=== PATIENT | male | born 1960 | race Caucasian/White ===

== ENCOUNTER 2016-11-30 18:53 | Emergency (ER) | payer MEDICARE ==
[~2016-11-30 18:53] MED LIST: /CIPR75TA; ATEN25TA PO; CIPR500T4; CLAR10CA3 PO; CYCL10TA3 PO; DIPH2.5L; FLAG500T; FLEXERIL; LIPI80TA PO; MOBI7.5S PO; MOBI7.5T10 PO; OTC SLEEP AID PO; PERCOCET; ROBA750T4 PO; TOPA100T PO; TRAZ150T PO; ULTR50TA PO; ZOFRAN
--- NOTE | 2016-11-30 21:15 | EDDOCDS ---
Nurse's Notes [facility] Name: Pavel Raza Age: 56 yrs Sex: Male : 1960 Arrival Date: 11/30/2016 Time: 18:53 Bed PR Private MD: Diagnosis: Unspecified injury of head;Unspecified injury of face and head Presentation: 11/30 18:57 Presenting complaint: Patient states: fell and injured Left temporal area. on blood rs3 thinner plavix. denies loss of consciousness. Adult Sepsis Screening: The patient does not have new or worsening altered mentation. Patient's respiratory rate is less than 22. Systolic blood pressure is greater than 100. Patient has a qSOFA score of 0- Negative Sepsis Screen. Suicide/Homicide risk assessment- the patient denies having any suicidal and/or homicidal ideations and does not present with any other emotional, behavioral or mental health complaints. Status: Patient is not a human services case manager or dependent. Transition of care: patient was not received from another setting of care. 18:57 Method Of Arrival: Walkin/Carried/Asstd rs3 18:57 Acuity: DENISSE Level 3 rs3 Triage Assessment: 19:00 General: Appears in no apparent distress. Pain: Location: left mandaen. Pt Declines HIV rs3 testing. Musculoskeletal: Reports Pain is 8 out of 10 on a pain scale. Historical: - Allergies: PENICILLINS (Rash); Abilify (anxious); - Home Meds: 1. atenolol 25 mg Oral tab 1 tab once daily 2. atorvastatin 80 mg oral tab 1 tab once daily 3. Topamax 100 mg Oral tab 1 tab daily 4. Vitamin D Oral 50,000 unit weekly 5. lisinopril 5 mg Oral tab 1 tab once daily 6. clopidogrel 75 mg oral tab 1 tab once daily - PMHx: Chronic Back pain; Hypercholesterolemia; Hypertension; Migraines; - PSHx: Left removal patella; skin melanoma removed; Shoulder Arthroplasty. Right; Arthroscopy, Knee- Right; Arthroscopy, Knee- Left; stent placement; - Social history: Smoking status: Patient states former smoker of tobacco. No barriers to communication noted, The patient speaks fluent Pashto. - Family history: Not pertinent. - : The pt / caregiver states he / she is on anticoagulants: Plavix. Home medication list is obtained from the patient. - Exposure Risk Screening:: None identified. Screenin:11 Screening information is obtained from the patient. Fall risk: No risks identified. jo3 Assistance ADL's: requires no assistance with activities of daily living. Abuse/DV Screen: The patient / caregiver reports he/she is: not in a situation that causes fear, pain or injury. Nutritional screening: No deficits noted. Advance Directives: There is no active DNR order. home support is adequate. Assessment: 21:11 General: Appears in no apparent distress, comfortable, Behavior is appropriate for age, jo3 cooperative, pleasant. Neurological: No deficits noted. Level of Consciousness is awake, alert, Oriented to person, place, time. Respiratory: Airway is patent Respiratory effort is even, unlabored. Derm: Skin is pink, warm & dry. small hematoma to left temporal area. Vital Signs: 18:56 BP 171 / 97; Pulse 61; Resp 16; Temp 96.2(O); Pulse Ox 100% on R/A; Weight 90.72 kg lr2 (R); Height 6 ft. 1 in. (185.42 cm); Pain 4/10; 21:11 BP 156 / 88; Pulse 62; Resp 16; Temp 98.2(T); Pulse Ox 96% on R/A; jo3 18:56 Body Mass Index 26.39 (90.72 kg, 185.42 cm) lr2 Vitals: 18:56 Log In Time: November 30, 2016 at 18:53. lr2 ED Course: 18:54 Patient visited by Yolette Real. lr2 18:54 Patient moved to Waiting lr2 18:56 Patient moved to Pre RCE lr2 18:57 Patient moved to Waiting rs3 18:59 Triage Initiated rs3 19:04 Patient moved to Pre RCE rs3 19:20 Patient moved to Triage 3 ck1 19:33 Patient visited by Opal Rhodes,TAINA. ck1 19:42 [facility] Pathak FNP [facility] ke 19:42 Patient visited by Connor Pathak FNP. ke 19:42 Patient visited by Connor Pathak FNP. ke 19:53 Patient moved to TR2 ck1 20:21 Patient visited by Opal Rhodes,TAINA. ck1 21:02 Patient visited by Connor Pathak FNP. ke 21:05 Patient moved to jo3 21:11 The patient / caregiver is instructed regarding the plan of care and ED course. jo3 21:11 No IV's were initiated during this patient's visit. No procedures done that require jo3 assistance. 21:12 [facility] Payment Agreement was scanned into [employer] and attached to record. ks16 Order Results: There are currently no results for this order. Outcome: 21:04 Discharge ordered by Provider. ke 21:11 Discharge Assessment: Patient awake, alert and oriented x 3. No cognitive and/or jo3 functional deficits noted. Patient verbalized understanding of disposition instructions. patient administered narcotics - no. The following High Risk Discharge criteria are identified: None. Discharged to home ambulatory. Condition: stable. Discharge instructions given to patient, Instructed on discharge instructions, follow up and referral plans. Demonstrated understanding of instructions, medications, Pt was receptive of discharge instructions/ teaching. CT Study completed. Property sent home with patient. 21:14 Patient left the ED. jo3 Signatures: Connor Pathak FNP FNP ke Kim-Ashcraft, ConnieRN RN ck1 Jaja Butler RN RN ziggy3 Gayle Diego RN RN rs3 Marita Mcclain, Reg Reg ks16 Yolette Real lr2 Corrections: (The following items were deleted from the chart) 19:04 18:57 Presenting complaint: Patient states: fell and injured Left temporal area. on rs3 blood thinner. denies loss of consciousness. rs3 19:04 19:00 The pt / caregiver states he / she is on anticoagulants: rs3 rs3 MTDD
--- NOTE | 2016-11-30 21:15 | EDDOCDS ---
Physician Documentation [facility] Name: Pavel Raza Age: 56 yrs Sex: Male : 1960 Arrival Date: 11/30/2016 Time: 18:53 Bed PR Private MD: Disposition: 11/30/16 21:04 Discharged to Home/Self Care. Impression: Unspecified injury of head, Unspecified injury of face and head. - Condition is Stable. - Discharge Instructions: Head Injury, Adult. - Medication Reconciliation, Local Pharmacy Hours form. - Follow up: Private Physician; When: 2 - 3 days; Reason: Recheck today's complaints, Continuance of care. - Problem is new. - Symptoms are unchanged. - Notes: ice 20 min an hour Historical: - Allergies: PENICILLINS (Rash); Abilify (anxious); - Home Meds: 1. atenolol 25 mg Oral tab 1 tab once daily 2. atorvastatin 80 mg oral tab 1 tab once daily 3. Topamax 100 mg Oral tab 1 tab daily 4. Vitamin D Oral 50,000 unit weekly 5. lisinopril 5 mg Oral tab 1 tab once daily 6. clopidogrel 75 mg oral tab 1 tab once daily - PMHx: Chronic Back pain; Hypercholesterolemia; Hypertension; Migraines; - PSHx: Left removal patella; skin melanoma removed; Shoulder Arthroplasty. Right; Arthroscopy, Knee- Right; Arthroscopy, Knee- Left; stent placement; - Social history: Smoking status: Patient states former smoker of tobacco. No barriers to communication noted, The patient speaks fluent Cypriot. - Family history: Not pertinent. - : The pt / caregiver states he / she is on anticoagulants: Plavix. Home medication list is obtained from the patient. - Exposure Risk Screening:: None identified. Vital Signs: 11/30 18:56 BP 171 / 97; Pulse 61; Resp 16; Temp 96.2(O); Pulse Ox 100% on R/A; Weight 90.72 kg / lr2 200 lbs (R); Height 6 ft. 1 in. (185.42 cm); Pain 4/10; 21:11 BP 156 / 88; Pulse 62; Resp 16; Temp 98.2(T); Pulse Ox 96% on R/A; jo3 18:56 Body Mass Index 26.39 (90.72 kg, 185.42 cm) lr2 MDM: 19:49 CT Head Without Contrast: on eloquis Ordered. EDMS 21:12 [facility] Payment Agreement was scanned into [employer] and attached to record. ks16 21:12 Financial registration complete. ks16 Signatures: Dispatcher [employer] EDMS Connor Pathak FNP TELECOMMUNICATIONS FIELD TECHNICIANJaja MelgarRN RN jo3 Gayle DiegoRN RN rs3 Marita Mcclain, Reg Reg ks16 The chart was reviewed and I authenticate all verbal orders and agree with the evaluation and treatment provided.Corrections: (The following items were deleted from the chart) 19:04 19:00 The pt / caregiver states he / she is on anticoagulants: rs3 rs3 Attachments: 21:12 [facility] Payment Agreement ks16 MTDD
--- NOTE | 2016-12-01 08:34 | REP ---
Clinical: Trauma . Comparison: 06/26/2015 . Findings: The ventricles, sulci, and cisterns are normal in position and appearance. Cuellar-white differentiation is maintained. No acute intracranial hemorrhage, mass/mass effect, pathology or trauma/injury. No evidence for acute infarction. No extra-axial fluid collection. Calvarium is intact. Paranasal sinuses and mastoid air cells are clear. Impression: Normal noncontrast head CT. No evidence for acute intracranial pathology or trauma/injury. Signed by Ayad Chung MD 12/01/2016 08:26 A
--- NOTE | 2016-12-02 22:15 | EDDOCDS ---
Physician Documentation [facility] Name: Pavel Raza Age: 56 yrs Sex: Male : 1960 Arrival Date: 11/30/2016 Time: 18:53 Bed PR Private MD: Disposition: 11/30/16 21:04 Discharged to Home/Self Care. Impression: Unspecified injury of head, Unspecified injury of face and head. - Condition is Stable. - Discharge Instructions: Head Injury, Adult. - Medication Reconciliation, Local Pharmacy Hours form. - Follow up: Private Physician; When: 2 - 3 days; Reason: Recheck today's complaints, Continuance of care. - Problem is new. - Symptoms are unchanged. - Notes: ice 20 min an hour Historical: - Allergies: PENICILLINS (Rash); Abilify (anxious); - Home Meds: 1. atenolol 25 mg Oral tab 1 tab once daily 2. atorvastatin 80 mg oral tab 1 tab once daily 3. Topamax 100 mg Oral tab 1 tab daily 4. Vitamin D Oral 50,000 unit weekly 5. lisinopril 5 mg Oral tab 1 tab once daily 6. clopidogrel 75 mg oral tab 1 tab once daily - PMHx: Chronic Back pain; Hypercholesterolemia; Hypertension; Migraines; - PSHx: Left removal patella; skin melanoma removed; Shoulder Arthroplasty. Right; Arthroscopy, Knee- Right; Arthroscopy, Knee- Left; stent placement; - Social history: Smoking status: Patient states former smoker of tobacco. No barriers to communication noted, The patient speaks fluent Singaporean. - Family history: Not pertinent. - : The pt / caregiver states he / she is on anticoagulants: Plavix. Home medication list is obtained from the patient. - Exposure Risk Screening:: None identified. Vital Signs: 11/30 18:56 BP 171 / 97; Pulse 61; Resp 16; Temp 96.2(O); Pulse Ox 100% on R/A; Weight 90.72 kg / lr2 200 lbs (R); Height 6 ft. 1 in. (185.42 cm); Pain 4/10; 21:11 BP 156 / 88; Pulse 62; Resp 16; Temp 98.2(T); Pulse Ox 96% on R/A; jo3 18:56 Body Mass Index 26.39 (90.72 kg, 185.42 cm) lr2 MDM: 19:49 CT Head Without Contrast: on eloquis Ordered. EDIN 21:12 [facility] Payment Agreement was scanned into [employer] and attached to record. ks 21:12 Financial registration complete. [facility] 12/01 10:48 T-Sheet-- Draft Copy was scanned into [employer] and attached to record. gb Signatures: Dispatcher [employer] EDMS Thalia Montaño, Reg Reg gb Connor Pathak, AIMEE SPANGLERP Jaja Cisse,RN RN jo3 Gayle DiegoRN RN rs3 Marita Mcclain, Reg Reg ks16 The chart was reviewed and I authenticate all verbal orders and agree with the evaluation and treatment provided.Corrections: (The following items were deleted from the chart) 11/30 19:04 19:00 The pt / caregiver states he / she is on anticoagulants: rs3 rs3 Attachments: 21:12 [facility] Payment Agreement [facility] 12/01 10:48 T-Sheet-- Draft Copy gb Chart Complete MTDD
--- NOTE | 2016-12-02 22:15 | EDDOCDS ---
Physician Documentation [facility] Name: Pavel Raza Age: 56 yrs Sex: Male : 1960 Arrival Date: 11/30/2016 Time: 18:53 Bed PR Private MD: Disposition: 11/30/16 21:04 Discharged to Home/Self Care. Impression: Unspecified injury of head, Unspecified injury of face and head. - Condition is Stable. - Discharge Instructions: Head Injury, Adult. - Medication Reconciliation, Local Pharmacy Hours form. - Follow up: Private Physician; When: 2 - 3 days; Reason: Recheck today's complaints, Continuance of care. - Problem is new. - Symptoms are unchanged. - Notes: ice 20 min an hour Historical: - Allergies: PENICILLINS (Rash); Abilify (anxious); - Home Meds: 1. atenolol 25 mg Oral tab 1 tab once daily 2. atorvastatin 80 mg oral tab 1 tab once daily 3. Topamax 100 mg Oral tab 1 tab daily 4. Vitamin D Oral 50,000 unit weekly 5. lisinopril 5 mg Oral tab 1 tab once daily 6. clopidogrel 75 mg oral tab 1 tab once daily - PMHx: Chronic Back pain; Hypercholesterolemia; Hypertension; Migraines; - PSHx: Left removal patella; skin melanoma removed; Shoulder Arthroplasty. Right; Arthroscopy, Knee- Right; Arthroscopy, Knee- Left; stent placement; - Social history: Smoking status: Patient states former smoker of tobacco. No barriers to communication noted, The patient speaks fluent New Zealander. - Family history: Not pertinent. - : The pt / caregiver states he / she is on anticoagulants: Plavix. Home medication list is obtained from the patient. - Exposure Risk Screening:: None identified. Vital Signs: 11/30 18:56 BP 171 / 97; Pulse 61; Resp 16; Temp 96.2(O); Pulse Ox 100% on R/A; Weight 90.72 kg / lr2 200 lbs (R); Height 6 ft. 1 in. (185.42 cm); Pain 4/10; 21:11 BP 156 / 88; Pulse 62; Resp 16; Temp 98.2(T); Pulse Ox 96% on R/A; jo3 18:56 Body Mass Index 26.39 (90.72 kg, 185.42 cm) lr2 MDM: 19:49 CT Head Without Contrast: on eloquis Ordered. EDSD 21:12 [facility] Payment Agreement was scanned into [employer] and attached to record. ks 21:12 Financial registration complete. [facility] 12/01 10:48 T-Sheet-- Draft Copy was scanned into [employer] and attached to record. gb Signatures: Dispatcher [employer] EDMS Thalia Montaño, Reg Reg gb Connor Pathak, AIMEE SPANGLERP Jaja Cisse,RN RN jo3 Gayle DiegoRN RN rs3 Marita Mcclain, Reg Reg ks16 The chart was reviewed and I authenticate all verbal orders and agree with the evaluation and treatment provided.Corrections: (The following items were deleted from the chart) 11/30 19:04 19:00 The pt / caregiver states he / she is on anticoagulants: rs3 rs3 Attachments: 21:12 [facility] Payment Agreement [facility] 12/01 10:48 T-Sheet-- Draft Copy gb Chart Complete MTDD
--- NOTE | 2016-12-02 22:15 | EDDOCDS ---
Nurse's Notes [facility] Name: Pavel Raza Age: 56 yrs Sex: Male : 1960 Arrival Date: 11/30/2016 Time: 18:53 Bed PR Private MD: Diagnosis: Unspecified injury of head;Unspecified injury of face and head Presentation: 11/30 18:57 Presenting complaint: Patient states: fell and injured Left temporal area. on blood rs3 thinner plavix. denies loss of consciousness. Adult Sepsis Screening: The patient does not have new or worsening altered mentation. Patient's respiratory rate is less than 22. Systolic blood pressure is greater than 100. Patient has a qSOFA score of 0- Negative Sepsis Screen. Suicide/Homicide risk assessment- the patient denies having any suicidal and/or homicidal ideations and does not present with any other emotional, behavioral or mental health complaints. Status: Patient is not a director dental services or dependent. Transition of care: patient was not received from another setting of care. 18:57 Method Of Arrival: Walkin/Carried/Asstd rs3 18:57 Acuity: DENISSE Level 3 rs3 Triage Assessment: 19:00 General: Appears in no apparent distress. Pain: Location: left mormonism. Pt Declines HIV rs3 testing. Musculoskeletal: Reports Pain is 8 out of 10 on a pain scale. Historical: - Allergies: PENICILLINS (Rash); Abilify (anxious); - Home Meds: 1. atenolol 25 mg Oral tab 1 tab once daily 2. atorvastatin 80 mg oral tab 1 tab once daily 3. Topamax 100 mg Oral tab 1 tab daily 4. Vitamin D Oral 50,000 unit weekly 5. lisinopril 5 mg Oral tab 1 tab once daily 6. clopidogrel 75 mg oral tab 1 tab once daily - PMHx: Chronic Back pain; Hypercholesterolemia; Hypertension; Migraines; - PSHx: Left removal patella; skin melanoma removed; Shoulder Arthroplasty. Right; Arthroscopy, Knee- Right; Arthroscopy, Knee- Left; stent placement; - Social history: Smoking status: Patient states former smoker of tobacco. No barriers to communication noted, The patient speaks fluent Occitan. - Family history: Not pertinent. - : The pt / caregiver states he / she is on anticoagulants: Plavix. Home medication list is obtained from the patient. - Exposure Risk Screening:: None identified. Screenin:11 Screening information is obtained from the patient. Fall risk: No risks identified. jo3 Assistance ADL's: requires no assistance with activities of daily living. Abuse/DV Screen: The patient / caregiver reports he/she is: not in a situation that causes fear, pain or injury. Nutritional screening: No deficits noted. Advance Directives: There is no active DNR order. home support is adequate. Assessment: 21:11 General: Appears in no apparent distress, comfortable, Behavior is appropriate for age, jo3 cooperative, pleasant. Neurological: No deficits noted. Level of Consciousness is awake, alert, Oriented to person, place, time. Respiratory: Airway is patent Respiratory effort is even, unlabored. Derm: Skin is pink, warm & dry. small hematoma to left temporal area. Vital Signs: 18:56 BP 171 / 97; Pulse 61; Resp 16; Temp 96.2(O); Pulse Ox 100% on R/A; Weight 90.72 kg lr2 (R); Height 6 ft. 1 in. (185.42 cm); Pain 4/10; 21:11 BP 156 / 88; Pulse 62; Resp 16; Temp 98.2(T); Pulse Ox 96% on R/A; jo3 18:56 Body Mass Index 26.39 (90.72 kg, 185.42 cm) lr2 Vitals: 18:56 Log In Time: November 30, 2016 at 18:53. lr2 ED Course: 18:54 Patient visited by Yolette Real. lr2 18:54 Patient moved to Waiting lr2 18:56 Patient moved to Pre RCE lr2 18:57 Patient moved to Waiting rs3 18:59 Triage Initiated rs3 19:04 Patient moved to Pre RCE rs3 19:20 Patient moved to Triage 3 ck1 19:33 Patient visited by Opal Rhodes,TAINA. ck1 19:42 [facility] ke 19:42 Patient visited by Connor Pathak FNP. ke 19:42 Patient visited by Connor Pathak FNP. ke 19:53 Patient moved to TR2 ck1 20:21 Patient visited by Opal Rhodes,TAINA. ck1 21:02 Patient visited by Connor Pathak FNP. ke 21:05 Patient moved to jo3 21:11 The patient / caregiver is instructed regarding the plan of care and ED course. jo3 21:11 No IV's were initiated during this patient's visit. No procedures done that require jo3 assistance. 21:12 [facility] Payment Agreement was scanned into [employer] and attached to record. ks16 12/01 08:59 CT Head Without Contrast: on eloquis Returned. EDIN 10:48 T-Sheet-- Draft Copy was scanned into [employer] and attached to record. gb Order Results: Radiology Order: CT Head Without Contrast: on eloquis Test: CT Head Without Contrast: on eloquis REASON FOR EXAMINATION: Trauma; Clinical: Trauma .; ; Comparison: 06/26/2015 .; ; Findings:; The ventricles, sulci, and cisterns are normal in position and appearance.; Cuellar-white differentiation is maintained. No acute intracranial hemorrhage,; mass/mass effect, pathology or trauma/injury. No evidence for acute infarction.; No extra-axial fluid collection. Calvarium is intact. Paranasal sinuses and; mastoid air cells are clear.; ; Impression:; Normal noncontrast head CT.; No evidence for acute intracranial pathology or trauma/injury.; ; ; Signed by; Ayad Chung MD 12/01/2016 08:26 A; Outcome: 11/30 21:04 Discharge ordered by Provider. ke 21:11 Discharge Assessment: Patient awake, alert and oriented x 3. No cognitive and/or jo3 functional deficits noted. Patient verbalized understanding of disposition instructions. patient administered narcotics - no. The following High Risk Discharge criteria are identified: None. Discharged to home ambulatory. Condition: stable. Discharge instructions given to patient, Instructed on discharge instructions, follow up and referral plans. Demonstrated understanding of instructions, medications, Pt was receptive of discharge instructions/ teaching. CT Study completed. Property sent home with patient. 21:14 Patient left the ED. jo3 Signatures: Dispatcher [employer] EDMS Thalia Montaño, Reg Reg gb Connor Pathak, KILN TENDER KILN TENDER Opal Munoz RN RN ck1 Jaja ButlerRN RN jo3 Gayle Diego RN RN rs3 Marita Mcclain, Reg Reg ks16 Yolette Real lr2 Corrections: (The following items were deleted from the chart) : 18:57 Presenting complaint: Patient states: fell and injured Left temporal area. on rs3 blood thinner. denies loss of consciousness. rs3 19:04 19:00 The pt / caregiver states he / she is on anticoagulants: rs3 rs3 Chart Complete MTDD
== END 2016-11-30 21:14 | disposition home or self-care (01) ==
LOC: M ED 18:53
DX: S00.01XA Abrasion of scalp, initial encounter (principal); S00.03XA Contusion of scalp, initial encounter; W01.0XXA Fall on same level from slipping, tripping and stumbling without subsequent striking against object, initial encounter; Y92.481 Parking lot as the place of occurrence of the external cause; Y93.89 Activity, other specified; Y99.8 Other external cause status; M54.9 Dorsalgia, unspecified; E78.00 Pure hypercholesterolemia, unspecified; I10 Essential (primary) hypertension; G43.909 Migraine, unspecified, not intractable, without status migrainosus; Z87.891 Personal history of nicotine dependence; Z79.899 Other long term (current) drug therapy; Z88.0 Allergy status to penicillin; Z88.8 Allergy status to other drugs, medicaments and biological substances

== ENCOUNTER 2017-01-27 04:03 | Emergency (ER) | payer MEDICARE ==
[~2017-01-27] VITALS: Ht 185.4 cm; Wt 95.3 kg
[2017-01-27] MEDS ORDERED: LISI-542 (04:14)
[2017-01-27] MEDS ORDERED: CLOP75TA2 (04:14)
[2017-01-27] MEDS ORDERED: NS 1,000 ML IV ONE (04:45)
[2017-01-27 06:16] LABS: BASO % 0.5 % (0.0-1.0); EOS # 0.1 K/mm3 (0.0-0.50); EOS % 1.9 % (0.0-3.0); LARGE UNSTAINED CELL # 0.1 K/mm3 (0.0-0.4); LARGE UNSTAINED CELL % 1.3 % (0.0-4.0); LYMPH # 1.8 K/mm3 (1.5-4.5); LYMPH % 24.1 % (24.0-44.0); MEAN CORPUSCULAR HEMOGLOBIN 29.6 pg (27.0-33.0); MEAN CORPUSCULAR HGB CONC 31.7 g/dl (32.0-36.5); MEAN CORPUSCULAR VOLUME 93.2 fl (80.0-96.0); MONO # 0.3 K/mm3 (0.0-0.8); MONO % 3.8 % (0.0-5.0); NEUTROPHILS # 5.1 K/mm3 (1.8-7.7); NEUTROPHILS % 68.5 % (36.0-66.0); PLATELET COUNT, AUTOMATED 219 k/mm3 (150-450); RED CELL DISTRIBUTION WIDTH 13.8 % (11.5-14.5); WHITE BLOOD COUNT 7.5 K/mm3 (4.0-10.0)
[2017-01-27 06:24] LABS: ALBUMIN 4.4 GM/DL (3.2-5.2); ALBUMIN/GLOBULIN RATIO 1.19 (1.00-1.93); ALKALINE PHOSPHATASE 98 U/L (45-117); ALT/SGPT 31 U/L (12-78); ANION GAP 9 MEQ/L (8-16); AST/SGOT 23 U/L (15-37); BILIRUBIN,DIRECT < 0.1 MG/DL (0.0-0.2); BILIRUBIN,TOTAL 0.4 MG/DL (0.2-1.0); BLOOD UREA NITROGEN 22 MG/DL (7-18); CALCIUM LEVEL 9.4 MG/DL (8.5-10.1); CARBON DIOXIDE LEVEL 25 MEQ/L (21-32); CHLORIDE LEVEL 108 MEQ/L (98-107); CREATININE FOR GFR 1.09 MG/DL (0.70-1.30); GLOMERULAR FILTRATION RATE > 60.0 (>56); GLUCOSE, FASTING 151 MG/DL (70-105); POTASSIUM SERUM 3.3 MEQ/L (3.5-5.1); SODIUM LEVEL 142 MEQ/L (136-145); TOTAL PROTEIN 8.1 GM/DL (6.4-8.2)
[2017-01-27 08:02] VITALS: BP 133/86
== END 2017-01-27 08:03 | disposition home or self-care (01) ==
LOC: EDBD 04:03 → M ED 06:54
DX: K52.9 Noninfective gastroenteritis and colitis, unspecified (principal); I51.9 Heart disease, unspecified; I10 Essential (primary) hypertension; I25.2 Old myocardial infarction; R51 Headache; D68.0 Von Willebrand disease; Z87.891 Personal history of nicotine dependence; Z88.0 Allergy status to penicillin; Z88.8 Allergy status to other drugs, medicaments and biological substances; Z79.899 Other long term (current) drug therapy

== ENCOUNTER → 2018-05-29 | Outpatient (CLI) | payer MEDICARE | LOC: M PAIN 10:45 | DX: M46.1 Sacroiliitis, not elsewhere classified (principal); M54.40 Lumbago with sciatica, unspecified side; G89.29 Other chronic pain; M79.1 Myalgia; E78.5 Hyperlipidemia, unspecified; G43.909 Migraine, unspecified, not intractable, without status migrainosus; D68.0 Von Willebrand disease; Z79.01 Long term (current) use of anticoagulants; Z79.82 Long term (current) use of aspirin; Z79.899 Other long term (current) drug therapy; Z88.0 Allergy status to penicillin; Z88.8 Allergy status to other drugs, medicaments and biological substances; Z87.891 Personal history of nicotine dependence | CPT/HCPCS: G0463 ==

== ENCOUNTER → 2018-12-11 | Outpatient (CLI) | payer MEDICARE ==
[~2018-12-11] MED LIST changes: +CLOP75TA2; +LISI-542; +MOBI4TAB PO; -MOBI7.5T10 PO
--- NOTE | 2018-12-26 01:37 | ECWPNPC ---
PATIENT NAME: CHRISTOPHER SAMAYOA : 1960 GENDER: MALE VISIT DATE: 12/11/2018 DISCHARGE DATE: 12/11/18 1456 VISIT LOCKED DATE TIME: PHYSICIAN: MIESHA VILLALOBOS RESOURCE: MIESHA VILLALOBOS REASON FOR APPOINTMENT 1. BACK HISTORY OF PRESENT ILLNESS HISTORY OF PRESENT ILLNESS: HERE FOR F/U OF CHRONIC LOW BACK PAIN.HAS TRIALED CYCLOBENZAPRINE PRESCRIBED AT LAST VISIT.HE IS GETTING IMPROVED SLEEP.DOING QUITE WELL TODAY.REPORTING IMPROVED SLEEP WITH CYCLOBENZAPRINE.RATING PAIN VAS 5/10. PAIN THE PATIENT DESCRIBES THE PAIN... FALL RISK SCREENING: SCREENING : NO FALLS IN THE PAST YEAR. CURRENT MEDICATIONS TAKING TOPAMAX 100 100MG TABLET ORAL DAILY TAKING LISINOPRIL 5 MG TABLET 1 TABLET ORALLY ONCE A DAY TAKING ATENOLOL 25 MG TABLET 1 TABLET ORALLY ONCE A DAY TAKING ATORVASTATIN CALCIUM 80 MG TABLET 1 TABLET ORALLY ONCE A DAY TAKING YADI ASPIRIN EC LOW DOSE 81 MG TABLET DELAYED RELEASE 1 TABLET ORALLY ONCE A DAY TAKING CYCLOBENZAPRINE HCL 10 MG TABLET 1 TABLET NEEDED ORALLY Q8H PRN TAKING APRISO 0.375 GM CAPSULE EXTENDED RELEASE 24 HOUR 4 CAPSULES IN THE MORNING ORALLY ONCE A DAY, NOTES: HASN'T STARTED YET NOT-TAKING CLOPIDOGREL BISULFATE 75 MG TABLET 1 TABLET ORALLY ONCE A DAY NOT-TAKING METHOCARBAMOL 750 MG TABLET 1 TABLET ORALLY TID PRN NOT-TAKING MELOXICAM 15 MG TABLET 1 TABLET ORALLY ONCE A DAY NOT-TAKING PENTASA 250 MG CAPSULE EXTENDED RELEASE 4 CAPSULES ORALLY FOUR TIMES A DAY NOT-TAKING IBUPROFEN 800 MG TABLET 1 TABLET ORALLY THREE TIMES A DAY NOT-TAKING METHYLPREDNISOLONE 4 MG TABLET THERAPY PACK DIRECTED ORALLY DIRECTED NOT-TAKING VALIUM 5 MG TABLET 1 TABLET NEEDED ORALLY TWICE A DAY FOR 3 DAYS FOR SEVERE SPASM MDD=2 NOT-TAKING LIPITOR 20 MG TABLET 1 TABLET ORALLY ONCE A DAY NOT-TAKING CHLORTHALIDONE 12.5 12.5MG TABLET ORAL NOT-TAKING FLEXERIL 10 MG TABLET 1 TABLET ORALLY THREE TIMES A DAY NOT-TAKING TAMSULOSIN HCL 0.4 MG CAPSULE 1 CAPSULE 30 MINUTES AFTER THE SAME MEAL EACH DAY ORALLY QHS NOT-TAKING MELOXICAM 15 MG TABLET 1 TABLET ORALLY ONCE A DAY MEDICATION LIST REVIEWED AND RECONCILED WITH THE PATIENT PAST MEDICAL HISTORY HYPERLIPIDEMIA VITAMIN D INSUFFICIENCY FOLIC DEFICIENCY MIGRAINES VON WILLEBRANDS DIVERTICULITIS ULCERATIVE COLITIS ALLERGIES PENICILLIN (FOR ALLERGIES USE ONLY): RASH ABILIFY: RASH SURGICAL HISTORY LOWER BACK 1997 LEFT LEG X5 1989' REMOVAL OF PATELLA 1989' RIGHT SHOULDER 1989 RIGHT LEG 2009 NECK SURGERY, SKIN CANCER 2005 VARICOSE VEINS 1984 2 CARDIAC STENTS 2016 JUL MELANOMA 2015 COLONOSCOPY 08/2018 COLONOSCOPY 09/2018 FAMILY HISTORY NO FAMILY HISTORY DOCUMENTED. SOCIAL HISTORY GENERAL: TOBACCO USE ARE YOU A:NONSMOKER QUIT JUL 2016 ALCOHOL SCREENING POINTS: 0, INTERPRETATION: NEGATIVE. RECREATIONAL DRUG USE DENIES. CAFFEINE CAFFEINE USE?NO SEXUAL HX HAD SEX IN THE LAST 12 MONTHS (VAGINAL, ORAL, OR ANAL)?: YES, WITH: WOMEN ONLY, USE PROTECTION?: NO, HAVE YOU EVER HAD AN STD?: NO. CHRISTIAN [id number] NONE LANGUAGE INDONESIAN. LEARNING BARRIERS / SPECIAL NEEDS BARRIERS TO LEARNING?NO HEARING IMPAIRED?NO VISION IMPAIRED?NO COGNITIVELY IMPAIRED?NO READINESS TO LEARN?YES LEARNING PREFERENCES?NO LEARNING CAPABILITIES PRESENT?YES SPECIAL DEVICES?NO DOMESTIC VIOLENCE NONE. OCCUPATION: DISABLED. DIET: REGULAR. EXERCISE: DAILY. MARITAL STATUS: SINGLE. PAIN CLINIC PFS, CLERGY, PUBLIC HEALTH REFERRALS PFS REFERRAL NEEDED?NO CLERGY REFERRAL NEEDED?NO PUBLIC HEALTH REFERRAL NEEDED?NO HAS THE PATIENT BEEN EDUCATED REGARDING HIS/HER PLAN OF CARE?YES HAS THE PATIENT BEEN EDUCATED REGARDING PAIN, THE RISK FOR PAIN, THE IMPORTANCE OF EFFECTIVE PAIN MANAGEMENT, AND THE PAIN ASSESSMENT PROCESS?YES ADVANCE DIRECTIVE ADVANCE DIRECTIVE DISCUSSED WITH PATIENT:YES DECLINED HCP INFORMATION REVIEWED WITH PATIENT 10/01/18 1457 JSREVIEWED WITH PATIENT 12/11/18 1426 JS. HOSPITALIZATION/MAJOR DIAGNOSTIC PROCEDURE COLITIS 2011 REVIEW OF SYSTEMS REVIEWED BY: PROVIDER: MIESHA YU . CONSTITUTIONAL: ANY CHANGE IN YOUR MEDICAL CONDITION? NO . CHILLS NO . FEVER NO . INFECTION: DO YOU HAVE NEW INFECTIONS? NO . DO YOU HAVE HISTORY OF MRSA? NO . MUSCULOSKELETAL: ANY NEW PATTERNS OF PAIN OR NUMBNESS? NO . GASTROENTEROLOGY: ANY NEW CHANGE IN BOWEL CONTROL? NO . GENITOURINARY: ANY NEW CHANGE IN BLADDER CONTROL? NO . IS THERE A CHANCE YOU COULD BE ? NO . HEMATOLOGY/LYMPH: DO YOU TAKE ANY BLOOD THINNERS? (FOR EXAMPLE- COUMADIN, PLAVIX, AGGRENOX, PLATEL, PRADAXA, OR XARELTO) NO . WHEN WAS YOUR LAST DOSE? DATE: TIME: . NEUROLOGY: HAVE YOU FALLEN IN THE PAST 12 MONTHS? NO . ANY NEW EXTREMITY NUMBNESS OR WEAKNESS? YES, STATES WEAKNESS TO BILATERAL LEGS THAT IS WORSE WHEN PAIN IS INCREASED . CARDIOLOGY: DO YOU HAVE A PACEMAKER OR DEFIBRILLATOR? NO . RESPIRATORY: HAVE YOU BEEN SICK IN THE PAST WEEK? NO . FEVER NO . FLU LIKE SYMPTOMS? NO . COUGH NO . INTEGUMENTARY: DO YOU HAVE ANY RASHES OR OPEN SORES? NO . ALLERGIC/IMMUNO: ARE YOU ALLERGIC TO IV DYE? NO . ANY NEW ALLERGIES? NO . PSYCHIATRIC: DO YOU HAVE THOUGHTS OF HURTING YOURSELF OR SOMEONE ELSE? NO . ARE YOU ABUSED, NEGLECTED, OR IN AN UNSAFE ENVIRONMENT? NO . ENDOCRINOLOGY: ARE YOU DIABETIC? NO . OTHER: DO YOU NEED ANY PRESCRIPTIONS? YES . IF YES, PLEASE LIST: ____CYCLOBENZAPRINE . ANY NEW PROBLEMS WITH YOUR MEDICATIONS? NO . WHEN DID YOU LAST EAT? ____ . WHEN DID YOU LAST DRINK? ____ . WHAT DID YOU LAST DRINK? ____ . NAME OF PERSON DRIVING YOU HOME? ____ . DO YOU HAVE ANY OTHER QUESTIONS OR CONCERNS NO . VITAL SIGNS WT 227 LBS, HT 6'1", BMI 29.95 INDEX, BP 127/82 MM HG, HR 71 /MIN, RR 18 /MIN, TEMP 96.4 F, OXYGEN SAT % 100%, SAFE IN ENV? (Y/N) YES, NA INITIALS OR 14:18, REVIEWED BY: YOEL. EXAMINATION GENERAL EXAMINATION: GENERAL APPEARANCE:AWAKE,ALERT ,PLEAASANT . PSYCHAFFECT NORMAL . LUNGS:LUNG [place] ARE CLEAR TO AUSCULTATION BILATERALLY. GOOD MOVEMENT OF AIR . HEART:S1, S2 IN A REGULAR RATE AND RHYTHM. NO SIGNIFICANT MURMURS, RUBS OR GALLOPS NOTED . LUMBAR SACRAL SPINEMUSCLE STRENGTH TESTING 4/5 BILATERAL., TRIGGER POINTS:, ELICITED WITH PALPATION OVER LUMBAR PARAVERTEBRAL MUSCLES.. NEUROLOGIC EXAM:NORMAL SENSATION TO LIGHT TOUCH LOWER EXTREMITIES. ASSESSMENTS LUMBAGO WITH SCIATICA, UNSPECIFIED SIDE - M54.40 (PRIMARY) SACROILIITIS - M46.1 TREATMENT LUMBAGO WITH SCIATICA, UNSPECIFIED SIDE REFILL CYCLOBENZAPRINE HCL TABLET, 10 MG, 1 TABLET NEEDED, ORALLY, Q8H PRN, 30 DAY(S), 45, REFILLS 2 PROCEDURE CODES FA211 ESTABILISHED PATIENT [facility] CHARGE DISPOSITION & COMMUNICATION FOLLOW UP 3 MONTHS ELECTRONICALLY SIGNED BY AIMEE DAVIES ON 12/25/2018 AT 04:27 PM EDT DISCLAIMER : THIS IS A VISIT SUMMARY EXTRACTED FROM THE [employer] CHART. IT IS NOT A COPY OF THE [employer] PROGRESS NOTE. BREANNA
== END ==
LOC: M PAIN 14:15
PROVIDERS: ATTEND Nurse Practitioner Family
DX: M54.40 Lumbago with sciatica, unspecified side (principal); M46.1 Sacroiliitis, not elsewhere classified; G89.29 Other chronic pain; E78.5 Hyperlipidemia, unspecified; G43.909 Migraine, unspecified, not intractable, without status migrainosus; D68.0 Von Willebrand disease; Z79.82 Long term (current) use of aspirin; Z79.899 Other long term (current) drug therapy; Z88.0 Allergy status to penicillin; Z88.8 Allergy status to other drugs, medicaments and biological substances; Z87.891 Personal history of nicotine dependence; Z87.19 Personal history of other diseases of the digestive system; Z86.79 Personal history of other diseases of the circulatory system

== ENCOUNTER 2019-06-06 13:18 | Emergency (ER) | payer MEDICARE ==
[~2019-06-06] VITALS: Ht 185.4 cm; Wt 102.8 kg
[2019-06-06 13:19] VITALS: BP 128/86
[2019-06-06] MEDS ORDERED: CYCL10TA PO ×2 (13:38→14:23)
[2019-06-06] MEDS ORDERED: KETOROLAC 30 MG/ML VIAL (J1885) IM ONE (14:20)
[2019-06-06] MEDS ORDERED: ECOT81TA5 PO (14:23)
[2019-06-06] MEDS ORDERED: MEDR4PAK PO (14:23)
== END 2019-06-06 14:49 | disposition home or self-care (01) ==
LOC: M ED 13:18
DX: S39.012A Strain of muscle, fascia and tendon of lower back, initial encounter (principal); M51.36 Other intervertebral disc degeneration, lumbar region; M54.32 Sciatica, left side; Z76.0 Encounter for issue of repeat prescription; X50.1XXA Overexertion from prolonged static or awkward postures, initial encounter; Y92.9 Unspecified place or not applicable; Y93.9 Activity, unspecified; Y99.9 Unspecified external cause status; G89.29 Other chronic pain; M54.9 Dorsalgia, unspecified; F41.1 Generalized anxiety disorder; I10 Essential (primary) hypertension; Z95.5 Presence of coronary angioplasty implant and graft; Z87.891 Personal history of nicotine dependence; Z85.820 Personal history of malignant melanoma of skin; Z79.82 Long term (current) use of aspirin; Z79.899 Other long term (current) drug therapy; Z88.0 Allergy status to penicillin; Z88.8 Allergy status to other drugs, medicaments and biological substances
CPT/HCPCS: 96372; 99283; J1885

== ENCOUNTER → 2019-06-19 | Outpatient (CLI) | payer MEDICARE ==
[~2019-06-19] MED LIST changes: +CYCL10TA PO; +ECOT81TA5 PO; +MEDR4PAK PO
--- NOTE | 2019-06-24 03:08 | ECWPNPC ---
PATIENT NAME: CHRISTOPHER SAMAYOA : 1960 GENDER: MALE VISIT DATE: 06/19/2019 DISCHARGE DATE: 06/19/19 1451 VISIT LOCKED DATE TIME: PHYSICIAN: CHALINO MORA RESOURCE: CHALINO MORA REASON FOR APPOINTMENT 1. BACK HISTORY OF PRESENT ILLNESS HISTORY OF PRESENT ILLNESS: PAIN THE PATIENT DESCRIBES THE PAIN... 59-YEAR-OLD MALE WITH CHRONIC PAIN FOLLOW-UP. HE DOES ADMIT TO A RECENT EXACERBATION OF HIS PAIN DUE TO PROLONGED SITTING AND STANDING. HE CURRENTLY RATES HIS PAIN AT A 3 OUT OF 10 AND DESCRIBES IT ACHING AND STABBING. HE DOES FEEL FLEXERIL IS WORKING WELL. FALL RISK SCREENING: SCREENING :NO FALLS REPORTED IN THE LAST YEAR CURRENT MEDICATIONS TAKING TOPAMAX 100 100MG TABLET ORAL DAILY TAKING LISINOPRIL 5 MG TABLET 1 TABLET ORALLY ONCE A DAY TAKING ATENOLOL 25 MG TABLET 1 TABLET ORALLY ONCE A DAY TAKING ATORVASTATIN CALCIUM 80 MG TABLET 1 TABLET ORALLY ONCE A DAY TAKING YADI ASPIRIN EC LOW DOSE 81 MG TABLET DELAYED RELEASE 1 TABLET ORALLY ONCE A DAY TAKING CYCLOBENZAPRINE HCL 10 MG TABLET 1 TABLET NEEDED ORALLY Q8H PRN NOT-TAKING APRISO 0.375 GM CAPSULE EXTENDED RELEASE 24 HOUR 4 CAPSULES IN THE MORNING ORALLY ONCE A DAY, NOTES: HASN'T STARTED YET NOT-TAKING FLEXERIL 10 MG TABLET 1 TABLET ORALLY THREE TIMES A DAY NOT-TAKING CLOPIDOGREL BISULFATE 75 MG TABLET 1 TABLET ORALLY ONCE A DAY NOT-TAKING METHOCARBAMOL 750 MG TABLET 1 TABLET ORALLY TID PRN NOT-TAKING MELOXICAM 15 MG TABLET 1 TABLET ORALLY ONCE A DAY NOT-TAKING PENTASA 250 MG CAPSULE EXTENDED RELEASE 4 CAPSULES ORALLY FOUR TIMES A DAY NOT-TAKING IBUPROFEN 800 MG TABLET 1 TABLET ORALLY THREE TIMES A DAY NOT-TAKING METHYLPREDNISOLONE 4 MG TABLET THERAPY PACK DIRECTED ORALLY DIRECTED NOT-TAKING VALIUM 5 MG TABLET 1 TABLET NEEDED ORALLY TWICE A DAY FOR 3 DAYS FOR SEVERE SPASM MDD=2 NOT-TAKING LIPITOR 20 MG TABLET 1 TABLET ORALLY ONCE A DAY NOT-TAKING CHLORTHALIDONE 12.5 12.5MG TABLET ORAL NOT-TAKING TAMSULOSIN HCL 0.4 MG CAPSULE 1 CAPSULE 30 MINUTES AFTER THE SAME MEAL EACH DAY ORALLY QHS NOT-TAKING MELOXICAM 15 MG TABLET 1 TABLET ORALLY ONCE A DAY MEDICATION LIST REVIEWED AND RECONCILED WITH THE PATIENT PAST MEDICAL HISTORY HYPERLIPIDEMIA VITAMIN D INSUFFICIENCY FOLIC DEFICIENCY MIGRAINES VON WILLEBRANDS DIVERTICULITIS ULCERATIVE COLITIS ALLERGIES PENICILLIN (FOR ALLERGIES USE ONLY): RASH ABILIFY: RASH SURGICAL HISTORY LOWER BACK 1997 LEFT LEG X5 1989' REMOVAL OF PATELLA 1989' RIGHT SHOULDER 1988 RIGHT LEG 2009 NECK SURGERY, SKIN CANCER 2005 VARICOSE VEINS 1984 2 CARDIAC STENTS 2016 JUL MELANOMA 2015 COLONOSCOPY 08/2018 COLONOSCOPY 09/2018 FAMILY HISTORY NO FAMILY HISTORY DOCUMENTED. SOCIAL HISTORY GENERAL: TOBACCO USE ARE YOU A:NONSMOKER QUIT JUL 2016 DIET: REGULAR. LANGUAGE TURKMEN. DOMESTIC VIOLENCE NONE. RECREATIONAL DRUG USE DENIES. EXERCISE: DAILY. LEARNING BARRIERS / SPECIAL NEEDS BARRIERS TO LEARNING?NO HEARING IMPAIRED?NO VISION IMPAIRED?NO COGNITIVELY IMPAIRED?NO READINESS TO LEARN?YES LEARNING PREFERENCES?NO LEARNING CAPABILITIES PRESENT?YES SPECIAL DEVICES?NO PAIN CLINIC PFS, CLERGY, PUBLIC HEALTH REFERRALS PFS REFERRAL NEEDED?NO CLERGY REFERRAL NEEDED?NO PUBLIC HEALTH REFERRAL NEEDED?NO HAS THE PATIENT BEEN EDUCATED REGARDING HIS/HER PLAN OF CARE?YES HAS THE PATIENT BEEN EDUCATED REGARDING PAIN, THE RISK FOR PAIN, THE IMPORTANCE OF EFFECTIVE PAIN MANAGEMENT, AND THE PAIN ASSESSMENT PROCESS?YES CAFFEINE CAFFEINE USE?NO ADVANCE DIRECTIVE ADVANCE DIRECTIVE DISCUSSED WITH PATIENT:YES DECLINED HCP INFORMATION BAPTISM [id number] NONE MARITAL STATUS: SINGLE. ALCOHOL SCREENING POINTS: 0, INTERPRETATION: NEGATIVE. OCCUPATION: DISABLED. SEXUAL HX HAD SEX IN THE LAST 12 MONTHS (VAGINAL, ORAL, OR ANAL)?: YES, WITH: WOMEN ONLY, USE PROTECTION?: NO, HAVE YOU EVER HAD AN STD?: NO. REVIEWED WITH PATIENT 10/01/18 1457 JSREVIEWED WITH PATIENT 12/11/18 1426 JSREVIEWED WITH PATIENT 06/19/19 1437 [facility]. HOSPITALIZATION/MAJOR DIAGNOSTIC PROCEDURE COLITIS 2011 REVIEW OF SYSTEMS REVIEWED BY: PROVIDER: INES YU-Elva . CONSTITUTIONAL: ANY CHANGE IN YOUR MEDICAL CONDITION? NO . CHILLS NO . FEVER NO . INFECTION: DO YOU HAVE NEW INFECTIONS? NO . DO YOU HAVE HISTORY OF MRSA? NO . MUSCULOSKELETAL: ANY NEW PATTERNS OF PAIN OR NUMBNESS? YES- LEFT LEG PAIN HAS INCREASED AND NUMBNESS HAS INCREASED . GASTROENTEROLOGY: ANY NEW CHANGE IN BOWEL CONTROL? NO . GENITOURINARY: ANY NEW CHANGE IN BLADDER CONTROL? NO . IS THERE A CHANCE YOU COULD BE ? NO . HEMATOLOGY/LYMPH: DO YOU TAKE ANY BLOOD THINNERS? (FOR EXAMPLE- COUMADIN, PLAVIX, AGGRENOX, PLATEL, PRADAXA, OR XARELTO) NO . WHEN WAS YOUR LAST DOSE? DATE: TIME: . NEUROLOGY: HAVE YOU FALLEN IN THE PAST 12 MONTHS? YES- FREQUENT FALLS . ANY NEW EXTREMITY NUMBNESS OR WEAKNESS? YES- STATES INCREASED LEFT LEG NUMBNESS . CARDIOLOGY: DO YOU HAVE A PACEMAKER OR DEFIBRILLATOR? NO . RESPIRATORY: HAVE YOU BEEN SICK IN THE PAST WEEK? NO . FEVER NO . FLU LIKE SYMPTOMS? NO . COUGH NO . INTEGUMENTARY: DO YOU HAVE ANY RASHES OR OPEN SORES? NO . ALLERGIC/IMMUNO: ARE YOU ALLERGIC TO IV DYE? NO . ANY NEW ALLERGIES? NO . PSYCHIATRIC: DO YOU HAVE THOUGHTS OF HURTING YOURSELF OR SOMEONE ELSE? NO . ARE YOU ABUSED, NEGLECTED, OR IN AN UNSAFE ENVIRONMENT? NO . ENDOCRINOLOGY: ARE YOU DIABETIC? NO . OTHER: DO YOU NEED ANY PRESCRIPTIONS? NO . IF YES, PLEASE LIST: ____ . ANY NEW PROBLEMS WITH YOUR MEDICATIONS? NO . WHEN DID YOU LAST EAT? ____ . WHEN DID YOU LAST DRINK? ____ . WHAT DID YOU LAST DRINK? ____ . NAME OF PERSON DRIVING YOU HOME? ____ . DO YOU HAVE ANY OTHER QUESTIONS OR CONCERNS YES- HAS HAD INCREASED PAIN IN LEFT LEG . VITAL SIGNS WT 213.6 LBS, HT 6'1", BMI 28.18 INDEX, BP 124/75 MM HG, HR 82 /MIN, RR 18 /MIN, TEMP 97.2 F, OXYGEN SAT % 99%, SAFE IN ENV? (Y/N) YES, NA INITIALS MT 14:21, REVIEWED BY: VERONIKA. EXAMINATION GENERAL EXAMINATION: GENERALNO ACUTE DISTRESS, WELL NOURISHED AND HYDRATED. PSYCHAPPROPRIATE MOOD AND AFFECT . LUNGS:CLEAR TO AUSCULTATION BILATERALLY, NO WHEEZES, RHONCHI, RALES. HEART:NO MURMURS, REGULAR RATE AND RHYTHM. ASSESSMENTS LUMBAGO WITH SCIATICA, UNSPECIFIED SIDE - M54.40 (PRIMARY) TREATMENT LUMBAGO WITH SCIATICA, UNSPECIFIED SIDE CLINICAL NOTES: 59-YEAR-OLD MALE HERE FOR CHRONIC PAIN FOLLOW-UP. DISCUSSED ORDERING AN MRI TODAY WITH PATIENT AND HE FEELS AT THIS TIME HE WOULD LIKE TO HOLD OFF. GIVEN PRESENTING SYMPTOMS AND RESULTS OF PHYSICAL EXAMINATION RECOMMENDED CONTINUATION OF FLEXERIL WITH FOLLOW-UP IN 2 MONTHS. FURTHER RECOMMENDED THAT PATIENT CALL THE OFFICE SHOULD HE CONTINUE TO EXPERIENCE INCREASED BACK PAIN WITH RADICULOPATHY WE MAY ORDER AN MRI AT THAT TIME. PATIENT HAS EXPRESSED UNDERSTANDING OF AND WAS IN AGREEMENT WITH TREATMENT PLAN. GIVEN TIME TO ASK QUESTIONS AND EXPRESS CONCERNS. PROCEDURE CODES FA211 ESTABILISHED PATIENT [facility] CHARGE DISPOSITION & COMMUNICATION FOLLOW UP 2 MONTHS (REASON: CHRONIC PAIN) ELECTRONICALLY SIGNED BY AIMEE BECKER ON 06/20/2019 AT 12:55 PM EDT DISCLAIMER : THIS IS A VISIT SUMMARY EXTRACTED FROM THE [employer] CHART. IT IS NOT A COPY OF THE [employer] PROGRESS NOTE. BREANNA
== END ==
LOC: M PAIN 14:15
PROVIDERS: ATTEND Family Medicine
DX: M54.40 Lumbago with sciatica, unspecified side (principal); G89.29 Other chronic pain; E78.5 Hyperlipidemia, unspecified; G43.909 Migraine, unspecified, not intractable, without status migrainosus; Z87.891 Personal history of nicotine dependence; Z88.0 Allergy status to penicillin; Z88.8 Allergy status to other drugs, medicaments and biological substances; Z91.81 History of falling; Z79.82 Long term (current) use of aspirin; Z79.899 Other long term (current) drug therapy

== ENCOUNTER → 2019-08-27 | Outpatient (CLI) | payer MEDICARE ==
--- NOTE | 2019-08-29 03:43 | ECWPNPC ---
PATIENT NAME: CHRISTOPHER SAMAYOA : 1960 GENDER: MALE VISIT DATE: 08/27/2019 DISCHARGE DATE: 08/27/19 1528 VISIT LOCKED DATE TIME: PHYSICIAN: CHALINO MORA RESOURCE: CHALINO MORA REASON FOR APPOINTMENT 1. BACK HISTORY OF PRESENT ILLNESS HISTORY OF PRESENT ILLNESS: PAIN THE PATIENT DESCRIBES THE PAIN... 59-YEAR-OLD MALE IN FOR CHRONIC PAIN FOLLOW-UP. HE DOES ADMIT TO WORSENING LOWER EXTREMITY PAIN AND WEAKNESS ESPECIALLY IN THE LEFT LEG. HE RATES HIS PAIN CURRENTLY AT A 3 OUT OF 10 AND DESCRIBES IT ACHING, AND SORE. HE FURTHER STATES THAT HIS LEG DOES GIVE OUT AT TIMES. FALL RISK SCREENING: SCREENING :NO FALLS REPORTED IN THE LAST YEAR CURRENT MEDICATIONS TAKING TOPAMAX 100 100MG TABLET ORAL DAILY TAKING LISINOPRIL 5 MG TABLET 1 TABLET ORALLY ONCE A DAY TAKING ATENOLOL 25 MG TABLET 1 TABLET ORALLY ONCE A DAY TAKING ATORVASTATIN CALCIUM 80 MG TABLET 1 TABLET ORALLY ONCE A DAY TAKING YADI ASPIRIN EC LOW DOSE 81 MG TABLET DELAYED RELEASE 1 TABLET ORALLY ONCE A DAY TAKING CYCLOBENZAPRINE HCL 10 MG TABLET 1 TABLET NEEDED ORALLY Q8H PRN TAKING MULTI FOR HIM - TABLET DIRECTED ORALLY DAILY NOT-TAKING APRISO 0.375 GM CAPSULE EXTENDED RELEASE 24 HOUR 4 CAPSULES IN THE MORNING ORALLY ONCE A DAY, NOTES: HASN'T STARTED YET NOT-TAKING FLEXERIL 10 MG TABLET 1 TABLET ORALLY THREE TIMES A DAY NOT-TAKING CLOPIDOGREL BISULFATE 75 MG TABLET 1 TABLET ORALLY ONCE A DAY NOT-TAKING METHOCARBAMOL 750 MG TABLET 1 TABLET ORALLY TID PRN NOT-TAKING MELOXICAM 15 MG TABLET 1 TABLET ORALLY ONCE A DAY NOT-TAKING PENTASA 250 MG CAPSULE EXTENDED RELEASE 4 CAPSULES ORALLY FOUR TIMES A DAY NOT-TAKING IBUPROFEN 800 MG TABLET 1 TABLET ORALLY THREE TIMES A DAY NOT-TAKING METHYLPREDNISOLONE 4 MG TABLET THERAPY PACK DIRECTED ORALLY DIRECTED NOT-TAKING VALIUM 5 MG TABLET 1 TABLET NEEDED ORALLY TWICE A DAY FOR 3 DAYS FOR SEVERE SPASM MDD=2 NOT-TAKING LIPITOR 20 MG TABLET 1 TABLET ORALLY ONCE A DAY NOT-TAKING CHLORTHALIDONE 12.5 12.5MG TABLET ORAL NOT-TAKING TAMSULOSIN HCL 0.4 MG CAPSULE 1 CAPSULE 30 MINUTES AFTER THE SAME MEAL EACH DAY ORALLY QHS NOT-TAKING MELOXICAM 15 MG TABLET 1 TABLET ORALLY ONCE A DAY MEDICATION LIST REVIEWED AND RECONCILED WITH THE PATIENT PAST MEDICAL HISTORY HYPERLIPIDEMIA VITAMIN D INSUFFICIENCY FOLIC DEFICIENCY MIGRAINES VON WILLEBRANDS DIVERTICULITIS ULCERATIVE COLITIS ALLERGIES PENICILLIN (FOR ALLERGIES USE ONLY): RASH ABILIFY: RASH SURGICAL HISTORY LOWER BACK 1997 LEFT LEG X5 REMOVAL OF PATELLA RIGHT SHOULDER 1988 RIGHT LEG 2009 NECK SURGERY, SKIN CANCER 2005 VARICOSE VEINS 1984 2 CARDIAC STENTS 2015 MELANOMA 2014 COLONOSCOPY 08/2018 COLONOSCOPY 09/2018 FAMILY HISTORY FATHER: MOTHER: , DIAGNOSED WITH OTHER MALIGNANT NEOPLASM OF UNSPECIFIED SITE 3 BROTHER(S) , 3 SISTER(S) - HEALTHY. 1 SON(S) , 1 DAUGHTER(S) . BROTHER - COLON CANCERDAUGHTER - EHLER'S DANLOS SYNDROMEMOTHER - BREAST CANCER. SOCIAL HISTORY GENERAL: TOBACCO USE ARE YOU A:NONSMOKER QUIT JUL 2016 DIET: REGULAR. LANGUAGE [place]. DOMESTIC VIOLENCE NONE. RECREATIONAL DRUG USE DENIES. EXERCISE: DAILY. LEARNING BARRIERS / SPECIAL NEEDS BARRIERS TO LEARNING?NO HEARING IMPAIRED?NO VISION IMPAIRED?NO COGNITIVELY IMPAIRED?NO READINESS TO LEARN?YES LEARNING PREFERENCES?NO LEARNING CAPABILITIES PRESENT?YES SPECIAL DEVICES?NO PAIN CLINIC PFS, CLERGY, PUBLIC HEALTH REFERRALS PFS REFERRAL NEEDED?NO CLERGY REFERRAL NEEDED?NO PUBLIC HEALTH REFERRAL NEEDED?NO HAS THE PATIENT BEEN EDUCATED REGARDING HIS/HER PLAN OF CARE?YES HAS THE PATIENT BEEN EDUCATED REGARDING PAIN, THE RISK FOR PAIN, THE IMPORTANCE OF EFFECTIVE PAIN MANAGEMENT, AND THE PAIN ASSESSMENT PROCESS?YES LATEX QUESTIONNAIRE LATEX ALLERGY : HAVE YOU EVER DEVELOPED ANY TYPE OF REACTION AFTER HANDLING LATEX PRODUCTS SUCH RUBBER GLOVES, CONDOMS, DIAPHRAGMS, BALLOONS, SOCKS, OR UNDERWEAR?NO LATEX ALLERGY : HAVE YOU EVER DEVELOPED ANY TYPE OF REACTION DURING OR AFTER DENTAL APPOINTMENT, VAGINAL/RECTAL EXAMINATION, SURGICAL PROCEDURE, OR ANY OTHER EXPOSURE?NO LATEX RISK : HAVE YOU EVER HAD ANY DIFFICULTY BREATHING OR HIVES AFTER EATING OR HANDLING ANY FRUITS, OR VEGETABLES; SUCH KIWI, BANANAS, STONE FRUITS, OR CHESTNUTSNO LATEX RISK : DO YOU HAVE A PREVIOUS PERSONAL HISTORY OF MORE THAN NINE SURGERIES, SPINA BIFIDA, OR REPEATED CATHERIZATIONS? NO LATEX RISK : ARE YOU FREQUENTLY EXPOSED TO LATEX PRODUCTS IN YOUR OCCUPATION?NO DATE ASKED : 08/27/2019 CAFFEINE CAFFEINE USE?NO ADVANCE DIRECTIVE ADVANCE DIRECTIVE DISCUSSED WITH PATIENT:YES DECLINED HCP INFORMATION WORSHIP [id number] NONE MARITAL STATUS: SINGLE. ALCOHOL SCREENING POINTS: 0, INTERPRETATION: NEGATIVE. OCCUPATION: DISABLED. SEXUAL HX HAD SEX IN THE LAST 12 MONTHS (VAGINAL, ORAL, OR ANAL)?: YES, WITH: WOMEN ONLY, USE PROTECTION?: NO, HAVE YOU EVER HAD AN STD?: NO. REVIEWED WITH PATIENT 10/01/18 1457 JSREVIEWED WITH PATIENT 12/11/18 1426 JSREVIEWED WITH PATIENT 06/19/19 1437 NLJREVIEWED WITH PATIENT 08/27/19 1459 JS. HOSPITALIZATION/MAJOR DIAGNOSTIC PROCEDURE COLITIS 2011 REVIEW OF SYSTEMS REVIEWED BY: PROVIDER: INES MORA HEEL CASER-C . CONSTITUTIONAL: ANY CHANGE IN YOUR MEDICAL CONDITION? NO . CHILLS NO . FEVER NO . INFECTION: DO YOU HAVE NEW INFECTIONS? NO . DO YOU HAVE HISTORY OF MRSA? NO . MUSCULOSKELETAL: ANY NEW PATTERNS OF PAIN OR NUMBNESS? YES, STATES PAIN WORSENING, WAKES HIM UP AT NIGHT. LEG GIVING OUT AT TIMES . GASTROENTEROLOGY: ANY NEW CHANGE IN BOWEL CONTROL? NO . GENITOURINARY: ANY NEW CHANGE IN BLADDER CONTROL? NO . IS THERE A CHANCE YOU COULD BE ? NO . HEMATOLOGY/LYMPH: DO YOU TAKE ANY BLOOD THINNERS? (FOR EXAMPLE- COUMADIN, PLAVIX, AGGRENOX, PLATEL, PRADAXA, OR XARELTO) NO . WHEN WAS YOUR LAST DOSE? DATE: TIME: . NEUROLOGY: HAVE YOU FALLEN IN THE PAST 12 MONTHS? YES, FALL YESTERDAY AND TODAY DUE TO LEFT LEG GIVING OUT. STATES NO ED VISIT, NO IMAGING AFTER FALLS . ANY NEW EXTREMITY NUMBNESS OR WEAKNESS? YES, LEFT LEG WEAKNESS WORSENING . CARDIOLOGY: DO YOU HAVE A PACEMAKER OR DEFIBRILLATOR? NO . RESPIRATORY: HAVE YOU BEEN SICK IN THE PAST WEEK? NO . FEVER NO . FLU LIKE SYMPTOMS? NO . COUGH NO . INTEGUMENTARY: DO YOU HAVE ANY RASHES OR OPEN SORES? NO . ALLERGIC/IMMUNO: ARE YOU ALLERGIC TO IV DYE? NO . ANY NEW ALLERGIES? NO . PSYCHIATRIC: DO YOU HAVE THOUGHTS OF HURTING YOURSELF OR SOMEONE ELSE? NO . ARE YOU ABUSED, NEGLECTED, OR IN AN UNSAFE ENVIRONMENT? NO . ENDOCRINOLOGY: ARE YOU DIABETIC? NO . OTHER: DO YOU NEED ANY PRESCRIPTIONS? YES . IF YES, PLEASE LIST: ____FLEXERIL . ANY NEW PROBLEMS WITH YOUR MEDICATIONS? NO . WHEN DID YOU LAST EAT? ____ . WHEN DID YOU LAST DRINK? ____ . WHAT DID YOU LAST DRINK? ____ . NAME OF PERSON DRIVING YOU HOME? ____ . DO YOU HAVE ANY OTHER QUESTIONS OR CONCERNS GETTING FLU VACCINE SOON . VITAL SIGNS WT 239.6 LBS, HT 6'1", BMI 31.61 INDEX, BP 124/85 MM HG, HR 81 /MIN, RR 18 /MIN, TEMP 97.2 F, OXYGEN SAT % 98%, SAFE IN ENV? (Y/N) YES, NA INITIALS AW 1444, REVIEWED BY: YOEL. EXAMINATION GENERAL EXAMINATION: GENERALNO ACUTE DISTRESS, WELL NOURISHED AND HYDRATED. PSYCHAPPROPRIATE MOOD AND AFFECT . LUNGS:CLEAR TO AUSCULTATION BILATERALLY, NO WHEEZES, RHONCHI, RALES. HEART:NO MURMURS, REGULAR RATE AND RHYTHM. MUSCULOSKELETAL:NOTABLE WEAKNESS OF THE LEFT LOWER EXTREMITY. ASSESSMENTS LUMBAGO WITH SCIATICA, UNSPECIFIED SIDE - M54.40 (PRIMARY) TREATMENT LUMBAGO WITH SCIATICA, UNSPECIFIED SIDE REFILL CYCLOBENZAPRINE HCL TABLET, 10 MG, 1 TABLET NEEDED, ORALLY, Q8H PRN, 30 DAY(S), 45, REFILLS 2 [facility] MRI LUMBAR W/O CONTRAST (CPT [id number] BETTENCOURT 08/27/2019 3:29:48 PM > MEDICARE A/B, NO AUTH REQUIRED CLINICAL NOTES: 59-YEAR-OLD MALE IN FOR CHRONIC PAIN FOLLOW-UP. GIVEN PRESENTING SYMPTOMS AND RESULTS OF PHYSICAL EXAMINATION RECOMMENDED MRI WITH FOLLOW-UP AFTER IMAGING. PATIENT HAS EXPRESSED UNDERSTANDING OF AND WAS IN AGREEMENT WITH TREATMENT PLAN. GIVEN TIME TO ASK QUESTIONS AND EXPRESS CONCERNS. PROCEDURE CODES FA211 ESTABILISHED PATIENT [facility] FACILITY CHARGE DISPOSITION & COMMUNICATION FOLLOW UP POST IMAGING (REASON: MRI LUMBAR SPINE) ELECTRONICALLY SIGNED BY AIMEE BECKER ON 08/28/2019 AT 03:24 PM EST DISCLAIMER : THIS IS A VISIT SUMMARY EXTRACTED FROM THE [employer] CHART. IT IS NOT A COPY OF THE [employer] PROGRESS NOTE. BREANNA
== END ==
LOC: M PAIN 14:15
PROVIDERS: ATTEND Family Medicine
DX: M54.40 Lumbago with sciatica, unspecified side (principal); G89.29 Other chronic pain; E78.5 Hyperlipidemia, unspecified; G43.909 Migraine, unspecified, not intractable, without status migrainosus; Z87.891 Personal history of nicotine dependence; Z88.0 Allergy status to penicillin; Z88.8 Allergy status to other drugs, medicaments and biological substances; Z79.82 Long term (current) use of aspirin; Z79.899 Other long term (current) drug therapy

== ENCOUNTER → 2019-09-06 | Outpatient (CLI) | payer MEDICARE ==
--- NOTE | 2019-09-08 10:20 | REP ---
MRI lumbar spine without contrast: History: Low back pain with sciatica. Shooting pains down the left leg with numbness. No comparison imaging. Technique: Sagittal and axial T1 and T2-weighted scans are acquired in the usual fashion with and without fat saturation. Sequences include spin echo, turbo spin-echo, and STIR imaging sequences. MRI findings: There is straightening of the normal lumbar lordosis. Alignment is normal. There is a cyst apparent in the left kidney at the edge of the imaging field of view measuring 2.6 cm in diameter. The abdominal aorta is tortuous but appears normal in caliber. Cortical and medullary bone signal intensity are normal. Axial and sagittal images taken at L1-L2 show no significant finding. At L2-L3, there is diffuse disc bulging. Mild bilateral foraminal disc bulging is seen. Borderline canal size is noted. Mild facet and ligamentum flavum hypertrophy is present. There is a moderate size left lateral disc protrusion at L2-3 seen on T1 axial and sagittal images. At the L3-4 disc level, there is mild to moderate central canal stenosis due to diffuse disc bulging, ligamentum flavum hypertrophy, and facet hypertrophy. Pedicles are developmentally somewhat short. Midline AP dimension of the thecal sac is 10 mm. There is minimal neural foraminal compression due to disc bulging bilaterally. At L4-L5, there is mild to moderate central canal stenosis due to diffuse disc bulging, developmentally short pedicles, and ligamentum flavum and facet hypertrophy. There is mild bilateral foraminal narrowing due to foraminal disc bulging and facet hypertrophy. Midline AP dimension of the thecal sac at L4-5 is 9.4 mm. At L5-S1, there is mild diffuse disc bulging. Bilateral neural foraminal narrowing is seen due to discogenic spurring and facet hypertrophy. There is ligamentum flavum hypertrophy noted. Mild central canal stenosis is visible. Impression: Multilevel central canal stenosis most pronounced at L3-4, L4-5, but present to a lesser extent at L2-3 and L5-S1. Multilevel neural foraminal encroachment as above. Left lateral disc protrusion at L2-3. Electronically Signed by Sergio Guallpa MD 09/08/2019 11:28 A
== END ==
LOC: M RAD 09:27
PROVIDERS: ATTEND Family Medicine
DX: M54.40 Lumbago with sciatica, unspecified side (principal)

== ENCOUNTER → 2019-09-22 | Outpatient (CLI) | payer MEDICARE ==
--- NOTE | 2019-09-25 01:20 | ECWPNPC ---
PATIENT NAME: CHRISTOPHER SAMAYOA : 1960 GENDER: MALE VISIT DATE: 09/22/2019 DISCHARGE DATE: 09/22/19 1142 VISIT LOCKED DATE TIME: PHYSICIAN: CHALINO MORA RESOURCE: CHALINO MORA REASON FOR APPOINTMENT 1. MRI REVIEW, HAD DONE AT [facility] HISTORY OF PRESENT ILLNESS HISTORY OF PRESENT ILLNESS: PAIN THE PATIENT DESCRIBES THE PAIN... 59-YEAR-OLD MALE IN FOR CHRONIC PAIN FOLLOW-UP. PATIENT HAD MRI COMPLETED WHICH WILL BE REVIEWED TODAY. HE RATES HIS PAIN CURRENTLY AT A 1-2 OUT OF 10 AND DESCRIBES IT ACHING, SHARP, AND STABBING. FALL RISK SCREENING: SCREENING :NO FALLS REPORTED IN THE LAST YEAR CURRENT MEDICATIONS TAKING TOPAMAX 100 100MG TABLET ORAL DAILY TAKING LISINOPRIL 5 MG TABLET 1 TABLET ORALLY ONCE A DAY TAKING ATENOLOL 25 MG TABLET 1 TABLET ORALLY ONCE A DAY TAKING ATORVASTATIN CALCIUM 80 MG TABLET 1 TABLET ORALLY ONCE A DAY TAKING YADI ASPIRIN EC LOW DOSE 81 MG TABLET DELAYED RELEASE 1 TABLET ORALLY ONCE A DAY TAKING MULTI FOR HIM - TABLET DIRECTED ORALLY DAILY TAKING CYCLOBENZAPRINE HCL 10 MG TABLET 1 TABLET NEEDED ORALLY Q8H PRN NOT-TAKING APRISO 0.375 GM CAPSULE EXTENDED RELEASE 24 HOUR 4 CAPSULES IN THE MORNING ORALLY ONCE A DAY, NOTES: HASN'T STARTED YET NOT-TAKING FLEXERIL 10 MG TABLET 1 TABLET ORALLY THREE TIMES A DAY NOT-TAKING CLOPIDOGREL BISULFATE 75 MG TABLET 1 TABLET ORALLY ONCE A DAY NOT-TAKING METHOCARBAMOL 750 MG TABLET 1 TABLET ORALLY TID PRN NOT-TAKING MELOXICAM 15 MG TABLET 1 TABLET ORALLY ONCE A DAY NOT-TAKING PENTASA 250 MG CAPSULE EXTENDED RELEASE 4 CAPSULES ORALLY FOUR TIMES A DAY NOT-TAKING IBUPROFEN 800 MG TABLET 1 TABLET ORALLY THREE TIMES A DAY NOT-TAKING METHYLPREDNISOLONE 4 MG TABLET THERAPY PACK DIRECTED ORALLY DIRECTED NOT-TAKING VALIUM 5 MG TABLET 1 TABLET NEEDED ORALLY TWICE A DAY FOR 3 DAYS FOR SEVERE SPASM MDD=2 NOT-TAKING LIPITOR 20 MG TABLET 1 TABLET ORALLY ONCE A DAY NOT-TAKING CHLORTHALIDONE 12.5 12.5MG TABLET ORAL NOT-TAKING TAMSULOSIN HCL 0.4 MG CAPSULE 1 CAPSULE 30 MINUTES AFTER THE SAME MEAL EACH DAY ORALLY QHS NOT-TAKING MELOXICAM 15 MG TABLET 1 TABLET ORALLY ONCE A DAY MEDICATION LIST REVIEWED AND RECONCILED WITH THE PATIENT PAST MEDICAL HISTORY HYPERLIPIDEMIA VITAMIN D INSUFFICIENCY FOLIC DEFICIENCY MIGRAINES VON WILLEBRANDS DIVERTICULITIS ULCERATIVE COLITIS ALLERGIES PENICILLIN (FOR ALLERGIES USE ONLY): RASH ABILIFY: RASH SURGICAL HISTORY LOWER BACK 1997 LEFT LEG X5 REMOVAL OF PATELLA RIGHT SHOULDER 1988 RIGHT LEG 2009 NECK SURGERY, SKIN CANCER 2005 VARICOSE VEINS 1984 2 CARDIAC STENTS 2016 JUL MELANOMA 2014 COLONOSCOPY 08/2018 COLONOSCOPY 09/2018 FAMILY HISTORY FATHER: MOTHER: , DIAGNOSED WITH OTHER MALIGNANT NEOPLASM OF UNSPECIFIED SITE 3 BROTHER(S) , 3 SISTER(S) - HEALTHY. 1 SON(S) , 1 DAUGHTER(S) . BROTHER - COLON CANCERDAUGHTER - EHLER'S DANLOS SYNDROMEMOTHER - BREAST CANCER. SOCIAL HISTORY GENERAL: TOBACCO USE ARE YOU A:NONSMOKER QUIT JUL 2016 DIET: REGULAR. LANGUAGE IRISH. DOMESTIC VIOLENCE NONE. RECREATIONAL DRUG USE DENIES. EXERCISE: DAILY. LEARNING BARRIERS / SPECIAL NEEDS BARRIERS TO LEARNING?NO HEARING IMPAIRED?NO VISION IMPAIRED?NO COGNITIVELY IMPAIRED?NO READINESS TO LEARN?YES LEARNING PREFERENCES?NO LEARNING CAPABILITIES PRESENT?YES SPECIAL DEVICES?NO PAIN CLINIC PFS, CLERGY, PUBLIC HEALTH REFERRALS PFS REFERRAL NEEDED?NO CLERGY REFERRAL NEEDED?NO PUBLIC HEALTH REFERRAL NEEDED?NO HAS THE PATIENT BEEN EDUCATED REGARDING HIS/HER PLAN OF CARE?YES HAS THE PATIENT BEEN EDUCATED REGARDING PAIN, THE RISK FOR PAIN, THE IMPORTANCE OF EFFECTIVE PAIN MANAGEMENT, AND THE PAIN ASSESSMENT PROCESS?YES LATEX QUESTIONNAIRE LATEX ALLERGY : HAVE YOU EVER DEVELOPED ANY TYPE OF REACTION AFTER HANDLING LATEX PRODUCTS SUCH RUBBER GLOVES, CONDOMS, DIAPHRAGMS, BALLOONS, SOCKS, OR UNDERWEAR?NO LATEX ALLERGY : HAVE YOU EVER DEVELOPED ANY TYPE OF REACTION DURING OR AFTER DENTAL APPOINTMENT, VAGINAL/RECTAL EXAMINATION, SURGICAL PROCEDURE, OR ANY OTHER EXPOSURE?NO DATE ASKED : 08/27/2019 LATEX RISK : HAVE YOU EVER HAD ANY DIFFICULTY BREATHING OR HIVES AFTER EATING OR HANDLING ANY FRUITS, OR VEGETABLES; SUCH KIWI, BANANAS, STONE FRUITS, OR CHESTNUTSNO LATEX RISK : DO YOU HAVE A PREVIOUS PERSONAL HISTORY OF MORE THAN NINE SURGERIES, SPINA BIFIDA, OR REPEATED CATHERIZATIONS? NO LATEX RISK : ARE YOU FREQUENTLY EXPOSED TO LATEX PRODUCTS IN YOUR OCCUPATION?NO CAFFEINE CAFFEINE USE?NO ADVANCE DIRECTIVE ADVANCE DIRECTIVE DISCUSSED WITH PATIENT:YES DECLINED HCP INFORMATION JAIN [id number] NONE MARITAL STATUS: SINGLE. ALCOHOL SCREENING POINTS: 0, INTERPRETATION: NEGATIVE. OCCUPATION: DISABLED. SEXUAL HX HAD SEX IN THE LAST 12 MONTHS (VAGINAL, ORAL, OR ANAL)?: YES, WITH: WOMEN ONLY, USE PROTECTION?: NO, HAVE YOU EVER HAD AN STD?: NO. REVIEWED WITH PATIENT 10/01/18 1457 JSREVIEWED WITH PATIENT 12/11/18 1426 JSREVIEWED WITH PATIENT 06/19/19 1437 NLJREVIEWED WITH PATIENT 08/27/19 1459 JS. HOSPITALIZATION/MAJOR DIAGNOSTIC PROCEDURE COLITIS 2011 REVIEW OF SYSTEMS REVIEWED BY: PROVIDER: INES YU-Elva . CONSTITUTIONAL: ANY CHANGE IN YOUR MEDICAL CONDITION? NO . CHILLS NO . FEVER NO . INFECTION: DO YOU HAVE NEW INFECTIONS? NO . DO YOU HAVE HISTORY OF MRSA? NO . MUSCULOSKELETAL: ANY NEW PATTERNS OF PAIN OR NUMBNESS? INCREASE DOWN LEFT LEG MORE THAN RIGT . GASTROENTEROLOGY: ANY NEW CHANGE IN BOWEL CONTROL? NO . GENITOURINARY: ANY NEW CHANGE IN BLADDER CONTROL? NO . IS THERE A CHANCE YOU COULD BE ? NO . HEMATOLOGY/LYMPH: DO YOU TAKE ANY BLOOD THINNERS? (FOR EXAMPLE- COUMADIN, PLAVIX, AGGRENOX, PLATEL, PRADAXA, OR XARELTO) NO . WHEN WAS YOUR LAST DOSE? DATE: TIME: . NEUROLOGY: HAVE YOU FALLEN IN THE PAST 12 MONTHS? NO . ANY NEW EXTREMITY NUMBNESS OR WEAKNESS? NO . CARDIOLOGY: DO YOU HAVE A PACEMAKER OR DEFIBRILLATOR? NO . RESPIRATORY: HAVE YOU BEEN SICK IN THE PAST WEEK? NO . FEVER NO . FLU LIKE SYMPTOMS? NO . COUGH NO . INTEGUMENTARY: DO YOU HAVE ANY RASHES OR OPEN SORES? NO . ALLERGIC/IMMUNO: ARE YOU ALLERGIC TO IV DYE? NO . ANY NEW ALLERGIES? NO . PSYCHIATRIC: DO YOU HAVE THOUGHTS OF HURTING YOURSELF OR SOMEONE ELSE? NO . ARE YOU ABUSED, NEGLECTED, OR IN AN UNSAFE ENVIRONMENT? NO . ENDOCRINOLOGY: ARE YOU DIABETIC? NO . OTHER: DO YOU NEED ANY PRESCRIPTIONS? NO . IF YES, PLEASE LIST: ____ . ANY NEW PROBLEMS WITH YOUR MEDICATIONS? NO . WHEN DID YOU LAST EAT? ____ . WHEN DID YOU LAST DRINK? ____ . WHAT DID YOU LAST DRINK? ____ . NAME OF PERSON DRIVING YOU HOME? ____ . DO YOU HAVE ANY OTHER QUESTIONS OR CONCERNS NO . VITAL SIGNS WT 240.8 LBS, HT 6'1", BMI 31.77 INDEX, BP 122/88 MM HG, HR 89 /MIN, RR 18 /MIN, TEMP 97.8 F, OXYGEN SAT % 99%, NA INITIALS AW 1039, REVIEWED BY: KG. EXAMINATION GENERAL EXAMINATION: GENERALNO ACUTE DISTRESS, WELL NOURISHED AND HYDRATED. PSYCHAPPROPRIATE MOOD AND AFFECT . LUNGS:CLEAR TO AUSCULTATION BILATERALLY, NO WHEEZES, RHONCHI, RALES. HEART:NO MURMURS, REGULAR RATE AND RHYTHM. ASSESSMENTS LUMBAGO WITH SCIATICA, UNSPECIFIED SIDE - M54.40 (PRIMARY) TREATMENT LUMBAGO WITH SCIATICA, UNSPECIFIED SIDE START GABAPENTIN CAPSULE, 100 MG, 1 CAPSULE TWICE A DAY X3 DAYS INCREASING TO 1 CAPSULE 3 TIMES A DAY, ORALLY, ONCE A DAY, 30 DAY(S), 90 CLINICAL NOTES: 59-YEAR-OLD MALE IN FOR CHRONIC PAIN FOLLOW-UP. MRI WAS REVIEWED WITH PATIENT AND GIVEN RESULTS OF MRI THIS SUPERVISOR LANDSCAPE RECOMMENDED LESI AND STARTING GABAPENTIN. PATIENT WOULD LIKE TO THINK OVER PROCEDURE AND WILL BE GIVEN EDUCATIONAL MATERIAL REGARDING IT PRIOR TO DEPARTURE TODAY. WE WILL FOLLOW-UP IN ONE MONTH TO DETERMINE EFFICACY OF GABAPENTIN. PATIENT HAS EXPRESSED UNDERSTANDING OF AND WAS IN AGREEMENT WITH TREATMENT PLAN. GIVEN TIME TO ASK QUESTIONS AND EXPRESS CONCERNS. PROCEDURE CODES FA211 ESTABILISHED PATIENT [facility] CHARGE DISPOSITION & COMMUNICATION FOLLOW UP 4 WEEKS (REASON: BACK PAIN) ELECTRONICALLY SIGNED BY AIMEE BECKER ON 09/24/2019 AT 08:57 AM EST DISCLAIMER : THIS IS A VISIT SUMMARY EXTRACTED FROM THE [employer] CHART. IT IS NOT A COPY OF THE [employer] PROGRESS NOTE. BREANNA
== END ==
LOC: M PAIN 10:45
PROVIDERS: ATTEND Family Medicine
DX: M54.40 Lumbago with sciatica, unspecified side (principal); G89.29 Other chronic pain; E78.5 Hyperlipidemia, unspecified; G43.909 Migraine, unspecified, not intractable, without status migrainosus; Z87.891 Personal history of nicotine dependence; Z88.0 Allergy status to penicillin; Z88.8 Allergy status to other drugs, medicaments and biological substances; Z79.82 Long term (current) use of aspirin; Z79.899 Other long term (current) drug therapy

== ENCOUNTER → 2019-10-21 | Outpatient (CLI) | payer MEDICARE ==
--- NOTE | 2019-10-23 01:28 | ECWPNPC ---
PATIENT NAME: CHRISTOPHER SAMAYOA : 1960 GENDER: MALE VISIT DATE: 10/21/2019 DISCHARGE DATE: 10/21/19 1336 VISIT LOCKED DATE TIME: PHYSICIAN: CHALINO MORA RESOURCE: CHALINO MORA REASON FOR APPOINTMENT 1. MEDS HISTORY OF PRESENT ILLNESS HISTORY OF PRESENT ILLNESS: PAIN THE PATIENT DESCRIBES THE PAIN... 59-YEAR-OLD MALE IN FOR CHRONIC PAIN FOLLOW-UP. HE WAS STARTED ON GABAPENTIN AT LAST CLINIC VISIT AND ADMITS TODAY THAT HE FEELS MEDICATION HAS BEEN HELPFUL IN REDUCING HIS PAIN. HE DESCRIBES HIS PAIN ACHING, STABBING, AND SHOOTING. HE DOES ADMIT TO A RECENT INCREASE IN HIS PAIN RELATED TO FLUID ON HIS LEFT KNEE. HE FURTHER STATES SHE WILL BE SEEING ORTHO REGARDING HIS KNEE. FALL RISK SCREENING: SCREENING :NO FALLS REPORTED IN THE LAST YEAR CURRENT MEDICATIONS TAKING TOPAMAX 100 100MG TABLET ORAL DAILY TAKING LISINOPRIL 5 MG TABLET 1 TABLET ORALLY ONCE A DAY TAKING ATENOLOL 25 MG TABLET 1 TABLET ORALLY ONCE A DAY TAKING ATORVASTATIN CALCIUM 80 MG TABLET 1 TABLET ORALLY ONCE A DAY TAKING YADI ASPIRIN EC LOW DOSE 81 MG TABLET DELAYED RELEASE 1 TABLET ORALLY ONCE A DAY TAKING MULTI FOR HIM - TABLET DIRECTED ORALLY DAILY TAKING CYCLOBENZAPRINE HCL 10 MG TABLET 1 TABLET NEEDED ORALLY Q8H PRN TAKING GABAPENTIN 100 MG CAPSULE 1 CAPSULE TWICE A DAY X3 DAYS INCREASING TO 1 CAPSULE 3 TIMES A DAY ORALLY ONCE A DAY NOT-TAKING APRISO 0.375 GM CAPSULE EXTENDED RELEASE 24 HOUR 4 CAPSULES IN THE MORNING ORALLY ONCE A DAY, NOTES: HASN'T STARTED YET NOT-TAKING FLEXERIL 10 MG TABLET 1 TABLET ORALLY THREE TIMES A DAY NOT-TAKING CLOPIDOGREL BISULFATE 75 MG TABLET 1 TABLET ORALLY ONCE A DAY NOT-TAKING METHOCARBAMOL 750 MG TABLET 1 TABLET ORALLY TID PRN NOT-TAKING MELOXICAM 15 MG TABLET 1 TABLET ORALLY ONCE A DAY NOT-TAKING PENTASA 250 MG CAPSULE EXTENDED RELEASE 4 CAPSULES ORALLY FOUR TIMES A DAY NOT-TAKING IBUPROFEN 800 MG TABLET 1 TABLET ORALLY THREE TIMES A DAY NOT-TAKING METHYLPREDNISOLONE 4 MG TABLET THERAPY PACK DIRECTED ORALLY DIRECTED NOT-TAKING VALIUM 5 MG TABLET 1 TABLET NEEDED ORALLY TWICE A DAY FOR 3 DAYS FOR SEVERE SPASM MDD=2 NOT-TAKING LIPITOR 20 MG TABLET 1 TABLET ORALLY ONCE A DAY NOT-TAKING CHLORTHALIDONE 12.5 12.5MG TABLET ORAL NOT-TAKING TAMSULOSIN HCL 0.4 MG CAPSULE 1 CAPSULE 30 MINUTES AFTER THE SAME MEAL EACH DAY ORALLY QHS NOT-TAKING MELOXICAM 15 MG TABLET 1 TABLET ORALLY ONCE A DAY MEDICATION LIST REVIEWED AND RECONCILED WITH THE PATIENT PAST MEDICAL HISTORY HYPERLIPIDEMIA VITAMIN D INSUFFICIENCY FOLIC DEFICIENCY MIGRAINES VON WILLEBRANDS DIVERTICULITIS ULCERATIVE COLITIS ALLERGIES PENICILLIN (FOR ALLERGIES USE ONLY): RASH ABILIFY: RASH SURGICAL HISTORY LOWER BACK 1997 LEFT LEG X5 REMOVAL OF PATELLA RIGHT SHOULDER 1988 RIGHT LEG 2009 NECK SURGERY, SKIN CANCER 2005 VARICOSE VEINS 1984 2 CARDIAC STENTS 2015 MELANOMA 2014 COLONOSCOPY 08/2018 COLONOSCOPY 09/2018 FAMILY HISTORY FATHER: MOTHER: , DIAGNOSED WITH OTHER MALIGNANT NEOPLASM OF UNSPECIFIED SITE 3 BROTHER(S) , 3 SISTER(S) - HEALTHY. 1 SON(S) , 1 DAUGHTER(S) . BROTHER - COLON CANCERDAUGHTER - EHLER'S DANLOS SYNDROMEMOTHER - BREAST CANCER. SOCIAL HISTORY GENERAL: TOBACCO USE ARE YOU A:NONSMOKER QUIT JUL 2016 DIET: REGULAR. LANGUAGE UZBEK. DOMESTIC VIOLENCE NONE. RECREATIONAL DRUG USE DENIES. EXERCISE: DAILY. LEARNING BARRIERS / SPECIAL NEEDS BARRIERS TO LEARNING?NO HEARING IMPAIRED?NO VISION IMPAIRED?NO COGNITIVELY IMPAIRED?NO READINESS TO LEARN?YES LEARNING PREFERENCES?NO LEARNING CAPABILITIES PRESENT?YES SPECIAL DEVICES?NO PAIN CLINIC PFS, CLERGY, PUBLIC HEALTH REFERRALS PFS REFERRAL NEEDED?NO CLERGY REFERRAL NEEDED?NO PUBLIC HEALTH REFERRAL NEEDED?NO HAS THE PATIENT BEEN EDUCATED REGARDING HIS/HER PLAN OF CARE?YES HAS THE PATIENT BEEN EDUCATED REGARDING PAIN, THE RISK FOR PAIN, THE IMPORTANCE OF EFFECTIVE PAIN MANAGEMENT, AND THE PAIN ASSESSMENT PROCESS?YES LATEX QUESTIONNAIRE LATEX ALLERGY : HAVE YOU EVER DEVELOPED ANY TYPE OF REACTION AFTER HANDLING LATEX PRODUCTS SUCH RUBBER GLOVES, CONDOMS, DIAPHRAGMS, BALLOONS, SOCKS, OR UNDERWEAR?NO LATEX ALLERGY : HAVE YOU EVER DEVELOPED ANY TYPE OF REACTION DURING OR AFTER DENTAL APPOINTMENT, VAGINAL/RECTAL EXAMINATION, SURGICAL PROCEDURE, OR ANY OTHER EXPOSURE?NO DATE ASKED : 08/27/2019 LATEX RISK : HAVE YOU EVER HAD ANY DIFFICULTY BREATHING OR HIVES AFTER EATING OR HANDLING ANY FRUITS, OR VEGETABLES; SUCH KIWI, BANANAS, STONE FRUITS, OR CHESTNUTSNO LATEX RISK : DO YOU HAVE A PREVIOUS PERSONAL HISTORY OF MORE THAN NINE SURGERIES, SPINA BIFIDA, OR REPEATED CATHERIZATIONS? NO LATEX RISK : ARE YOU FREQUENTLY EXPOSED TO LATEX PRODUCTS IN YOUR OCCUPATION?NO CAFFEINE CAFFEINE USE?NO ADVANCE DIRECTIVE ADVANCE DIRECTIVE DISCUSSED WITH PATIENT:YES DECLINED HCP INFORMATION FAITH [id number] NONE MARITAL STATUS: SINGLE. ALCOHOL SCREENING POINTS: 0, INTERPRETATION: NEGATIVE. OCCUPATION: DISABLED. SEXUAL HX HAD SEX IN THE LAST 12 MONTHS (VAGINAL, ORAL, OR ANAL)?: YES, WITH: WOMEN ONLY, USE PROTECTION?: NO, HAVE YOU EVER HAD AN STD?: NO. REVIEWED WITH PATIENT 10/01/18 1457 JSREVIEWED WITH PATIENT 12/11/18 1426 JSREVIEWED WITH PATIENT 06/19/19 1437 NLJREVIEWED WITH PATIENT 08/27/19 1459 JS. HOSPITALIZATION/MAJOR DIAGNOSTIC PROCEDURE COLITIS 2011 REVIEW OF SYSTEMS REVIEWED BY: PROVIDER: INES MORA SPRINKLER REPAIR TECHNICIAN-C . CONSTITUTIONAL: ANY CHANGE IN YOUR MEDICAL CONDITION? NO . CHILLS NO . FEVER NO . INFECTION: DO YOU HAVE NEW INFECTIONS? NO . DO YOU HAVE HISTORY OF MRSA? NO . MUSCULOSKELETAL: ANY NEW PATTERNS OF PAIN OR NUMBNESS? NO . GASTROENTEROLOGY: ANY NEW CHANGE IN BOWEL CONTROL? NO . GENITOURINARY: ANY NEW CHANGE IN BLADDER CONTROL? NO . IS THERE A CHANCE YOU COULD BE ? NO . HEMATOLOGY/LYMPH: DO YOU TAKE ANY BLOOD THINNERS? (FOR EXAMPLE- COUMADIN, PLAVIX, AGGRENOX, PLATEL, PRADAXA, OR XARELTO) NO . WHEN WAS YOUR LAST DOSE? DATE: TIME: . NEUROLOGY: HAVE YOU FALLEN IN THE PAST 12 MONTHS? , FELL FROM LEFT KNEE PAIN . ANY NEW EXTREMITY NUMBNESS OR WEAKNESS? YES, LEFT KNEE PAIN . CARDIOLOGY: DO YOU HAVE A PACEMAKER OR DEFIBRILLATOR? NO . RESPIRATORY: HAVE YOU BEEN SICK IN THE PAST WEEK? NO . FEVER NO . FLU LIKE SYMPTOMS? NO . COUGH NO . INTEGUMENTARY: DO YOU HAVE ANY RASHES OR OPEN SORES? NO . ALLERGIC/IMMUNO: ARE YOU ALLERGIC TO IV DYE? NO . ANY NEW ALLERGIES? NO . PSYCHIATRIC: DO YOU HAVE THOUGHTS OF HURTING YOURSELF OR SOMEONE ELSE? NO . ARE YOU ABUSED, NEGLECTED, OR IN AN UNSAFE ENVIRONMENT? NO . ENDOCRINOLOGY: ARE YOU DIABETIC? NO . OTHER: DO YOU NEED ANY PRESCRIPTIONS? NO . IF YES, PLEASE LIST: ____ . ANY NEW PROBLEMS WITH YOUR MEDICATIONS? NO . WHEN DID YOU LAST EAT? ____ . WHEN DID YOU LAST DRINK? ____ . WHAT DID YOU LAST DRINK? ____ . NAME OF PERSON DRIVING YOU HOME? ____ . DO YOU HAVE ANY OTHER QUESTIONS OR CONCERNS NO . VITAL SIGNS WT 243.6 LBS, HT 73 IN, BMI 32.14 INDEX, BP 121/90 MM HG, HR 75 /MIN, RR 16 /MIN, TEMP 97.1 F, OXYGEN SAT % 100, REVIEWED BY: EM. EXAMINATION GENERAL EXAMINATION: GENERALNO ACUTE DISTRESS, WELL NOURISHED AND HYDRATED. PSYCHAPPROPRIATE MOOD AND AFFECT . LUNGS:CLEAR TO AUSCULTATION BILATERALLY, NO WHEEZES, RHONCHI, RALES. HEART:NO MURMURS, REGULAR RATE AND RHYTHM. ASSESSMENTS LUMBAGO WITH SCIATICA, UNSPECIFIED SIDE - M54.40 (PRIMARY) TREATMENT LUMBAGO WITH SCIATICA, UNSPECIFIED SIDE CLINICAL NOTES: 59-YEAR-OLD MALE IN FOR CHRONIC PAIN FOLLOW-UP. GIVEN PRESENTING SYMPTOMS AND RESULTS PHYSICAL EXAMINATION RECOMMENDED CONTINUATION CURRENT MEDICATION REGIMEN WITH FOLLOW-UP IN 3 MONTHS. PATIENT HAS EXPRESSED UNDERSTANDING OF AND WAS IN AGREEMENT WITH TREATMENT PLAN. GIVEN TIME TO ASK QUESTIONS AND EXPRESS CONCERNS. PROCEDURE CODES FA211 ESTABILISHED PATIENT [facility] CHARGE DISPOSITION & COMMUNICATION FOLLOW UP 3 MONTHS (REASON: BACK PAIN) ELECTRONICALLY SIGNED BY AIMEE BECKER ON 10/22/2019 AT 08:22 AM EST DISCLAIMER : THIS IS A VISIT SUMMARY EXTRACTED FROM THE [employer] CHART. IT IS NOT A COPY OF THE [employer] PROGRESS NOTE. BREANNA
== END ==
LOC: M PAIN 13:15
PROVIDERS: ATTEND Family Medicine
DX: M54.40 Lumbago with sciatica, unspecified side (principal); Z79.899 Other long term (current) drug therapy; Z87.891 Personal history of nicotine dependence; Z88.0 Allergy status to penicillin; Z88.8 Allergy status to other drugs, medicaments and biological substances

== ENCOUNTER 2019-12-11 13:34 | Emergency (ER) | payer MEDICARE ==
[~2019-12-11] VITALS: Ht 185.4 cm; Wt 109.1 kg
[2019-12-11] MEDS ORDERED: GABA-1171 (13:48)
[2019-12-11] MEDS ORDERED: PRED20TA PO (14:42)
[2019-12-11] MEDS ORDERED: DOXY100C37 PO (14:42)
[2019-12-11] MEDS ORDERED: DOXYCYCLINE HYCLATE 100 MG TAB PO ONE (14:45)
[2019-12-11] MEDS ORDERED: predniSONE 20 MG TAB PO ONE (14:45)
[2019-12-11 14:46] VITALS: BP 112/83
[2019-12-11 14:58] LABS: INFLUENZA A AMPLIFICATION NEGATIVE (NEGATIVE); INFLUENZA B AMPLIFICATION NEGATIVE (NEGATIVE)
== END 2019-12-11 14:51 | disposition home or self-care (01) ==
LOC: M ED 13:34
DX: J01.90 Acute sinusitis, unspecified (principal); J40 Bronchitis, not specified as acute or chronic; I11.9 Hypertensive heart disease without heart failure; I25.10 Atherosclerotic heart disease of native coronary artery without angina pectoris; G43.909 Migraine, unspecified, not intractable, without status migrainosus; Z88.0 Allergy status to penicillin; Z88.8 Allergy status to other drugs, medicaments and biological substances; Z79.899 Other long term (current) drug therapy; Z79.82 Long term (current) use of aspirin

== ENCOUNTER 2020-04-06 19:31 | Emergency (ER) | payer MEDICARE ==
[~2020-04-06] VITALS: Ht 185.4 cm; Wt 104.5 kg
[~2020-04-06 19:31] MED LIST changes: +CYCL-707 PO; -CYCL10TA PO; +DOXY100C37 PO; +GABA-1171; -LISI-542; +LISI-542 PO; +PRED20TA PO
[2020-04-06] MEDS ORDERED: LORA-674 PO (19:37)
[2020-04-06] MEDS ORDERED: AZIT-12 (19:37)
[2020-04-06] MEDS ORDERED: ALBUTEROL 90 MCG/ACT 8GM HFA INHALER INH ONE (20:15)
[2020-04-06] MEDS ORDERED: methylPREDNISolone 125MG 2ML VIAL IV ONE (20:15)
[2020-04-06] MEDS ORDERED: NS 1,000 ML IV ONE (20:15)
[2020-04-06] MEDS ORDERED: ONDANSETRON 4MG/2ML VIAL IV ONE (20:15)
[2020-04-06 20:44] LABS: BASO % 0.4 % (0.0-1.0); HEMATOCRIT 33.6 % (42.0-52.0); HEMOGLOBIN 10.7 g/dl (13.5-17.5); LYMPH # 1.6 10^3/uL (1.5-5.0); MEAN CORPUSCULAR HEMOGLOBIN 28.8 pg (27.0-33.0); MEAN CORPUSCULAR HGB CONC 31.8 g/dl (32.0-36.5); MEAN CORPUSCULAR VOLUME 90.3 fl (80.0-96.0); MONO # 0.6 10^3/uL (0.0-0.8); MONO % 12.5 % (0.0-5.0); NEUTROPHILS # 2.8 10^3/uL (1.5-8.5); NEUTROPHILS % 54.7 % (36.0-66.0); PLATELET COUNT, AUTOMATED 326 10^3/uL (150-450); RED BLOOD COUNT 3.72 10^6/uL (4.30-6.10); WHITE BLOOD COUNT 5.1 10^3/uL (4.0-10.0)
[2020-04-06 21:11] LABS: ALBUMIN 3.4 GM/DL (3.2-5.2); ALT/SGPT 24 U/L (12-78); BILIRUBIN,DIRECT < 0.1 MG/DL (0.0-0.2); BILIRUBIN,TOTAL 0.3 MG/DL (0.2-1.0); CK-MB VALUE MASS < 1.0 NG/ML (<3.6); CPK CREATINE PHOSPHOKINASE 39 U/L (39-308); MB/CK RELATIVE INDEX 2.56 (< OR =4); NT-PRO BNP 46 PG/ML (<125); TOTAL PROTEIN 6.7 GM/DL (6.4-8.2); TROPONIN I < 0.02 NG/ML (< 0.10)
[2020-04-06] MEDS ORDERED: PRED20TA PO (21:56)
[2020-04-06] MEDS ORDERED: ONDA4TAB6 PO (21:56)
[2020-04-06 22:00] VITALS: BP 116/82
--- NOTE | 2020-04-07 08:10 | REP ---
Portable chest x-ray: Single view. History: Dyspnea and cough. Comparison chest x-ray: May 25, 2016. Findings: The lungs are symmetrically aerated and free of infiltrate. Pleural angles are sharp. The heart is not enlarged. The aorta slightly tortuous. There are old post-traumatic changes in the distal clavicles bilaterally as before. Impression: No active disease. Electronically Signed by Sergio Guallpa MD 04/07/2020 08:01 A
== END 2020-04-06 22:11 | disposition home or self-care (01) ==
LOC: M ED 19:31
DX: J20.9 Acute bronchitis, unspecified (principal); D64.9 Anemia, unspecified; I10 Essential (primary) hypertension; E78.5 Hyperlipidemia, unspecified; D68.0 Von Willebrand disease; Z95.5 Presence of coronary angioplasty implant and graft; Z79.82 Long term (current) use of aspirin; Z88.0 Allergy status to penicillin; Z88.8 Allergy status to other drugs, medicaments and biological substances
CPT/HCPCS: 71045; 80047; 80076; 82550; 82553; 83880; 84484; 85025; 94640; 96361; 96374; 96375; 99284; J2405; J2930

== ENCOUNTER 2020-04-12 14:28 | Inpatient (IN) | payer MEDICARE ==
[~2020-04-12] VITALS: Ht 182.9 cm; Wt 82.5 kg
[~2020-04-12 14:28] MED LIST changes: +AZIT-12; +LORA-674 PO; +ONDA4TAB6 PO
[2020-04-12 15:20] LABS: VENOUS BASE EXCESS -3.9 (-2.0-2.0); VENOUS HCO3 20.7 MEQ/L (23.0-27.0); VENOUS O2 SATURATION 59.7 % (60.0-80.0); VENOUS PARTIAL PRESSURE CO2 35.9 mmHg (38.0-50.0); VENOUS PARTIAL PRESSURE O2 31.7 mmHg (30.0-50.0); VENOUS PH 7.378 UNITS (7.330-7.430); VENOUS STANDARD HCO3 20.5 MEQ/L; VENOUS TOTAL CO2 21.8 MEQ/L (24.0-28.0)
--- NOTE | 2020-04-12 15:21 | REP ---
Clinical: Cough and dyspnea. Comparison: 04/06/2020. Findings: Mediastinum and cardiac silhouette are stable. Diffuse chronic interstitial changes are appreciated. Superimposed scattered bilateral infiltrates compatible with multifocal pneumonia. No effusion. No pneumothorax. Skeletal structures stable. Impression: Multifocal pneumonia suggested. Electronically Signed by Ayad Chung MD 04/12/2020 03:12 P
[2020-04-12 15:23] LABS: BASO % 0.1 % (0.0-1.0); HEMATOCRIT 37.1 % (42.0-52.0); HEMOGLOBIN 11.6 g/dl (13.5-17.5); LYMPH % 9.3 % (24.0-44.0); MEAN CORPUSCULAR HEMOGLOBIN 28.4 pg (27.0-33.0); MEAN CORPUSCULAR HGB CONC 31.3 g/dl (32.0-36.5); MEAN CORPUSCULAR VOLUME 90.7 fl (80.0-96.0); MONO # 0.3 10^3/uL (0.0-0.8); MONO % 2.9 % (0.0-5.0); NEUTROPHILS # 9.2 10^3/uL (1.5-8.5); NEUTROPHILS % 86.8 % (36.0-66.0); PLATELET COUNT, AUTOMATED 329 10^3/uL (150-450); RED BLOOD COUNT 4.09 10^6/uL (4.30-6.10); WHITE BLOOD COUNT 10.6 10^3/uL (4.0-10.0)
[2020-04-12] MEDS ORDERED: NS 1,000 ML IV ONE (15:45)
[2020-04-12] MEDS ORDERED: ONDANSETRON 4MG/2ML VIAL IV ONE (15:45)
[2020-04-12 16:00] LABS: ALBUMIN 3.1 GM/DL (3.2-5.2); ALT/SGPT 22 U/L (12-78); BILIRUBIN,DIRECT 0.2 MG/DL (0.0-0.2); BILIRUBIN,TOTAL 0.6 MG/DL (0.2-1.0); BLOOD UREA NITROGEN 22 MG/DL (7-18); CALCIUM LEVEL 8.5 MG/DL (8.5-10.1); CARBON DIOXIDE LEVEL 22 MEQ/L (21-32); CHLORIDE LEVEL 106 MEQ/L (98-107); CK-MB VALUE MASS < 1.0 NG/ML (<3.6); CPK CREATINE PHOSPHOKINASE 31 U/L (39-308); CREATININE FOR GFR 1.02 MG/DL (0.70-1.30); GLOMERULAR FILTRATION RATE > 60.0 (>56); GLUCOSE, FASTING 88 MG/DL (70-100); MB/CK RELATIVE INDEX 3.23 (< OR =4); NT-PRO BNP 48 PG/ML (<125); POTASSIUM SERUM 3.4 MEQ/L (3.5-5.1); SODIUM LEVEL 137 MEQ/L (136-145); TOTAL PROTEIN 7.1 GM/DL (6.4-8.2); TROPONIN I < 0.02 NG/ML (< 0.10)
[2020-04-12] MEDS: ALBUTEROL 90 MCG/ACT 8GM HFA INHALER INH SCH ×3 (16:16→16:56)
[2020-04-12 16:56] LABS: C REACTIVE PROTEIN QUANTITATIV 7.41 MG/DL (0.00-0.30); FERRITIN 101 NG/ML (26-388); LDH LACTATE DEHYDROGENASE 236 U/L (87-241)
[2020-04-12] MEDS ORDERED: ONDA4TAB6 PO (17:08)
[2020-04-12] MEDS ORDERED: ECOT81TA5 PO (17:08)
[2020-04-12] MEDS ORDERED: TOPI100T9 PO (17:09)
[2020-04-12 17:15] LABS: INR 1.12; PROTHROMBIN TIME 14.1 SECONDS (11.8-14.0)
[2020-04-12 17:16] LABS: PARTIAL THROMBOPLASTIN TIME 30.9 SECONDS (25.0-38.4)
[2020-04-12 17:19] LABS: D-DIMER QUANT 1814.54 ng/ml (<500)
[2020-04-12] MEDS ORDERED: MAALOX 30 ML SUSP *UDC PO PRN (17:45)
[2020-04-12] MEDS ORDERED: IPRATROPIUM 0.5MG/ALBUTEROL 2.5MG INH SOL UD 3ML (DUONEB) NEB PRN (17:45)
[2020-04-12] MEDS ORDERED: ACETAMINOPHEN TAB 650MG DOSE (2X325MG) PO PRN (17:45)
[2020-04-12] MEDS ORDERED: ONDANSETRON 4 MG ORAL DISINTEGRATING TAB PO PRN (17:45)
--- NOTE | 2020-04-12 17:56 | HPEPDOC ---
General Date of Admission Date of Service: Apr 12, 2020 Chief Complaint The patient is a 60-year-old male admitted with a reason for visit of SOB. Source: Patient Exam Limitations: No limitations Timing/Duration: Other (2-3 days) Severity: Severe Associated Symptoms: Other (shortness of breath, cough, phlegm, fever) History of Present Illness This is a 60 years old white male with past medical history of hyperlipidemia, vitamin D deficiency, hypertension, folic acid deficiency, migraine headaches ,van Willebrand factor deficiency, history of [place], status post cardiac stents, has recently presented with cough, shortness of breath and was diagnosed with bronchitis and started on Zithromax. Patient has taken 4 doses of Zithromax, but is still has increasing shortness of breath and cough and is producing phlegm which is white and frothy in color. Regarding his shortness of breath is persistent progressively getting worse, associated with wheezing, weakness, chills and fever fever, not improved with any medication including antibiotics and exacerbated by any exertion since last 2-3 days.Patient has denied chest pain, nausea, vomiting, abdominal pain or diarrhea. Patient denies any history of travel exposure to COVID infection. Patient is not a good historian secondary to his current medical status is still a lot of pain from his medical records and discussing with Dr. Villalobos in ED. Home Medications Scheduled Aspirin (Ecotrin) 81 Mg Tablet.dr, 81 MG PO DAILY, (Reported) Atenolol (Atenolol) 25 Mg Tab, 25 MG PO DAILY, (Reported) Atorvastatin Calcium (Lipitor) 80 Mg Tab, 80 MG PO DAILY, (Reported) Lisinopril (Lisinopril) 5 Mg Tab, 5 MG PO DAILY, (Reported) Loratadine (Loratadine) 10 Mg Tablet, 10 MG PO DAILY, (Reported) Topiramate (Topiramate) 100 Mg Tablet, 200 MG PO DAILY, (Reported) Scheduled PRN Cyclobenzaprine HCl (Cyclobenzaprine HCl) 10 Mg Tablet, 10 MG PO QHS PRN for PAIN SCALE 1-5, (Reported) Ondansetron (Ondansetron Odt) 4 Mg Tab.rapdis, 4 MG PO Q6-8HP PRN for NAUSEA OR VOMITING, (Reported) Allergies Coded Allergies: Penicillins (Verified Allergy, Mild, rash, 04/06/20) aripiprazole (Verified Adverse Reaction, Mild, agitation, 04/06/20) Past Medical History Medical History IN status post cardiac stent placement, hypertension, hyperlipidemia, vitamin D deficiency, folic acid deficiency, migraine headaches von Willebrand factor deficiency and pain Surgical History Lower back surgery, left leg surgery, patella removal, right shoulder surgery, right leg surgery. 2. Varicose veins repaired cardiac stents in 2016 and melanoma removal Family History Family history reviewed. No history of cancer, diabetes Social History * Smoker: former Smoker Alcohol: Denies Drugs: denies A-FIB/CHADSVASC A-FIB History Current/History of A-Fib/PAF?: No Review of Systems Constitutional: Reports: Fever, Weakness, Lethargy Eyes: Denies: Pain, Vision change, Conjunctivae inflammation, Eyelid inflammation, Redness, Other ENT: Denies: Head Aches, Ear Pain, Dysphagia, Sinus Congestion, Post Nasal Drip, Sore Throat, Epistaxis, Other Symptoms Skin: Denies: Rash, Lesions, Jaundice, Bruising, Itching, Dry, Breakdown, Nail Changes, Other Pulmonary: Reports: Dyspnea, Cough Cardiovascular: Denies: Chest Pain, Palpitations, Orthopnea, Paroxysmal Noc. Dyspnea, Edema, Lt Headedness, Other Symptoms Gastrointestinal: Denies: Nausea, Vomiting, Abdominal Pain, Diarrhea, Constipation, Melena, Hematochezia, Other Symptoms Genitourinary: Denies: Dysuria, Frequency, Incontinence, Hematuria, Retention, Other Symptoms Hematologic: Denies: Bruising, Bleeding Excessively, Petecchia, Purpura, Enlarged Lymph Nodes, Other Hematologic Endocrine: Denies: Polydipsia, Polyphagia, Polyuria, Heat Intolerance, Cold Intolerance, Other Endocrine Sx Musculoskeletal: Denies: Neck Pain, Back Pain, Shoulder Pain, Arm Pain, Hand Pain, Leg Pain, Foot Pain, Joint Pain, Muscle Pain, Spasms, Other Symptoms Psych: Denies: Mood Normal, Anxiety, Depression, Memory Issues, Thoughts of Self Harm, Anger, Thoughts of Harming Other, Other Psych Physical Examination General Exam: Positive: Alert, Moderate Distress, Other (lethargic) Eye Exam: Positive: PERRLA, Conjunctiva & lids normal ENT Exam: Positive: Atraumatic, Mucous membr. moist/pink Neck Exam: Positive: Supple Chest Exam: Positive: Other (bilateral wheezing audible. Also crackles bilatera lly, but mostly on both bases) Heart Exam: Positive: Rate Normal, Normal S1, Normal S2 Abdomen Exam: Positive: Normal bowel sounds, Soft Extremity Exam: Positive: Normal pulses Skin Exam: Positive: Nl turgor and temperature Neuro Exam: Positive: Other Psych Exam: Positive: Other (unable to psych exam secondary to his medical status) Vital Signs Vital Signs Date Time Temp Pulse Resp B/P (MAP) Pulse Ox O2 Delivery O2 Flow Rate FiO2 04/12/20 15:36 100.9 113 20 123/92 (102) 92 Nasal Cannula 2.0 Laboratory Data Labs 24H Laboratory Tests 2 04/12/20 15:06: Immature Granulocyte % (Auto) 0.9, Neutrophils (%) (Auto) 86.8H, Lymphocytes (%) (Auto) 9.3L, Monocytes (%) (Auto) 2.9, Eosinophils (%) (Auto) 0.0, Basophils (%) (Auto) 0.1, Neutrophils # (Auto) 9.2H, Lymphocytes # (Auto) 1.0L, Monocytes # (Auto) 0.3, Eosinophils # (Auto) 0.0, Basophils # (Auto) 0.0, Nucleated Red Blood Cells % (auto) 0.0, Prothrombin Time 14.1H, Prothromb Time International Ratio 1.12, Activated Partial Thromboplast Time 30.9, D-Dimer, Quantitative 1814.54H, Blood Gas Bicarbonate Standard 20.5, Venous Blood pH 7.378, Venous Blood Partial Pressure CO2 35.9L, Venous Blood Partial Pressure O2 31.7, Venous Blood Total Carbon Dioxide 21.8L, Venous Blood HCO3 20.7L, Venous Blood Oxygen Saturation 59.7L, Venous Blood Base Excess -3.9L, Anion Gap 9, Glomerular Filtration Rate > 60.0, Lactic Acid Level 2.6*H, Calcium Level 8.5, Ferritin 101, Total Bilirubin 0.6, Direct Bilirubin 0.2, Aspartate Amino Transf (AST/SGOT) 24, Alanine Aminotransferase (ALT/SGPT) 22, Alkaline Phosphatase 80, Lactate Dehydrogenase 236, Total Creatine Kinase 31L, Creatine Kinase MB < 1.0, Creatine Kinase MB Relative Index 3.23, Troponin I < 0.02, C-Reactive Protein, Quantitative 7.41H, RE-Qtt-P-Type Natriuretic Peptide 48, Total Protein 7.1, Albumin 3.1L, Albumin/Globulin Ratio 0.8, Thyroid Stimulating Hormone (TSH) 1.840 CBC/BMP Laboratory Tests 04/12/20 15:06 Microbiology Microbiology 04/12/20 Respiratory Virus Panel (PCR) (JW) - Final, Complete SARS-CoV-2 (COVID 19) 04/12/20 Blood Culture, Received Pending 04/12/20 Blood Culture, Received Pending Problems (1) Pneumonia due to SARS-associated coronavirus Status: Acute Problem Text: 60 years old white male with past medical history of IN, status post cardiac stent, hyperlipidemia, folic acid deficiency, vitamin D deficiency, migraines, von Willebrand factor V deficiency, back pain, hypertension, has no history of for travel or contact with any person with COVID has been admitted with a multifocal pneumonia secondary to COVID infection. Pt also has a history of extensive smoker in the past and on clinical exam most likely has exacerbation of COPD, even though he was never diagnosed with COPD treated. On presentation. His fever was 102.3, but now his 100.9, heart rate of 113 but pressure 123/92, pulse ox is 92% on oxygen support Chest x-ray consistent with a multifocal pneumonia, EKG shows sinus tachycardia, no ST-T changes, WBC count of 10.6, hemoglobin 11.6, hematocrit 37.1, platelets 329 Electrolytes are normal except potassium is slightly low to 3.4, BUN of 22 and creatinine 1.02 Because it is 2.6. CRP 7.410 calcitonin is pending and d-dimer is 1814, SARS-COV-2 positive Admit patient to [facility] floor with telemetry IV fluids normal saline at 20 mL per hour Start treatment for community acquired pneumonia As patient is allergic to penicillin, will start him on Levaquin 750 mg IV every 24 hours Tylenol when necessary Send sputum cultures and Gram stain Unfortunately, we don't have ID consult available this week to consult Droplet and contact isolation Repeat labs in a.m. Oxygen support Regular diet DVT prophylaxis with with the Lovenox Activity as tolerated. Inside the isolation room (2) COPD exacerbation Status: Acute Problem Specific Plan: Consult Specialist Problem Text: Patient has extensive history of smoking. He recently quit in 2016 On clinical exam. He has bilateral wheezing with an expiratory in nature with bilateral crackles at bases Start patient on DuoNeb every 6 hours and every 2 hours when necessary Solu-Medrol 60 mg IV every 8 hours Oxygen support to keep pulse ox between 88-92% Sputum for cultures and Gram stain (3) Hyperlipemia Status: Chronic Problem Text: Continue home meds (4) CAD (coronary artery disease) Status: Chronic Problem Text: EKG showed sinus tachycardia with no acute ST-T changes Telemetry ordered Monitor clinically Serial troponins troponins (5) Low back pain Status: Chronic Problem Text: Tylenol when necessary (6) Factor V deficiency Status: Chronic Problem Text: Nothing to follow (7) Hypokalemia Status: Acute Problem Text: Potassium 40 mg by mouth 1 CBC, CMP and magnesium levels in a.m. (8) HTN (hypertension) Status: Chronic Problem Text: Continue lisinopril as per orders Plan / VTE VTE Prophylaxis Ordered?: Yes MARLY VARGAS MD Apr 12, 2020 17:56
[2020-04-12] MEDS ORDERED: POTASSIUM CHLORIDE 10 MEQ SR TABLET PO ONE (18:15)
[2020-04-12] MEDS ORDERED: IPRATROPIUM 0.5MG/ALBUTEROL 2.5MG INH SOL UD 3ML (DUONEB) NEB SCH (20:00)
[2020-04-12] MEDS ORDERED: COMBIVENT RESPIMAT 100-20MCG INHALER 4GM INH PRN (20:00)
[2020-04-12] MEDS: NS 1,000 ML IV SCH (20:50)
[2020-04-12] MEDS: LevoFLOXacin IV 750 MG in IV 1 EA IV SCH (20:51)
[2020-04-12] MEDS: methylPREDNISolone INJ 125 MG/2 ML VIAL (J2930) IV SCH (20:52)
[2020-04-12] MEDS: DOCUSATE SODIUM 100 MG CAP PO SCH (20:52)
[2020-04-12 21:17] VITALS: BP 93/66
[2020-04-12] MEDS: CYCLOBENZAPRINE 10MG TABLET PO PRN (22:27)
[2020-04-13 00:03] VITALS: BP 97/69
[2020-04-13] MEDS: methylPREDNISolone INJ 125 MG/2 ML VIAL (J2930) IV SCH ×3 (04:17→21:05)
[2020-04-13 04:27] VITALS: BP 95/75
[2020-04-13 07:18] LABS: HEMATOCRIT 37.1 % (42.0-52.0); MEAN CORPUSCULAR HEMOGLOBIN 28.7 pg (27.0-33.0); MEAN CORPUSCULAR HGB CONC 29.6 g/dl (32.0-36.5); MEAN CORPUSCULAR VOLUME 96.9 fl (80.0-96.0); PLATELET COUNT, AUTOMATED 241 10^3/uL (150-450); RED BLOOD COUNT 3.83 10^6/uL (4.30-6.10); WHITE BLOOD COUNT 5.6 10^3/uL (4.0-10.0)
[2020-04-13] MEDS: NS 1,000 ML IV SCH ×2 (07:46→16:29)
[2020-04-13 07:47] VITALS: BP 107/72
[2020-04-13 07:49] LABS: ALBUMIN 2.6 GM/DL (3.2-5.2); ALT/SGPT 21 U/L (12-78); BILIRUBIN,TOTAL 0.5 MG/DL (0.2-1.0); BLOOD UREA NITROGEN 23 MG/DL (7-18); CALCIUM LEVEL 8.4 MG/DL (8.5-10.1); CARBON DIOXIDE LEVEL 23 MEQ/L (21-32); CHLORIDE LEVEL 110 MEQ/L (98-107); CREATININE FOR GFR 0.86 MG/DL (0.70-1.30); GLOMERULAR FILTRATION RATE > 60.0 (>56); GLUCOSE, FASTING 162 MG/DL (70-100); MAGNESIUM LEVEL 2.4 MG/DL (1.8-2.4); POTASSIUM SERUM 4.8 MEQ/L (3.5-5.1); SODIUM LEVEL 141 MEQ/L (136-145); TOTAL PROTEIN 6.2 GM/DL (6.4-8.2); TROPONIN I < 0.02 NG/ML (< 0.10)
[2020-04-13] MEDS: DOCUSATE SODIUM 100 MG CAP PO SCH ×2 (07:49→21:03)
[2020-04-13] MEDS: TOPIRAMATE (TopAMAX) 100 MG TAB PO SCH (09:18)
[2020-04-13] MEDS: ATORVASTATIN 20 MG TAB PO SCH (09:19)
[2020-04-13] MEDS: LORATADINE 10 MG TAB PO SCH (09:19)
[2020-04-13] MEDS: ENOXAPARIN 40MG/0.4ML SYRINGE (J1650 PER 10MG) SC SCH (09:19)
[2020-04-13] MEDS: ASPIRIN 81 MG ENTERIC TAB PO SCH (09:19)
[2020-04-13] MEDS: lisinopriL 5 MG TAB PO SCH (10:24)
[2020-04-13 12:03] VITALS: BP 113/79
[2020-04-13] MEDS: atenoloL 25 MG TAB PO SCH (12:06)
--- NOTE | 2020-04-13 16:18 | ECGEPIP ---
[facility] - ED Test Date: 2020-04-12 Pat Name: CHRISTOPHER SAMAYOA Department: Room: - Gender: Male Bdr: : 1960 Requested By: Aranza Harvey Order Number: [id number] Reading MD: Aranza Harvey Measurements Intervals [place] Rate: 110 P: 38 AR: 143 QRS: -10 QRSD: 103 T: 29 QT: 313 QTc: 424 Interpretive Statements SINUS TACHYCARDIA POSSIBLE LEFT ATRIAL ENLARGEMENT ABNORMAL RHYTHM ECG NSTTW abnormalities NO PRIOR Electronically Signed on 04-13-2020 16:17:36 EDT by Aranza Harvey
[2020-04-13 16:29] VITALS: BP 108/74
[2020-04-13] MEDS: LevoFLOXacin IV 750 MG in IV 1 EA IV SCH (17:45)
--- NOTE | 2020-04-13 17:53 | IPNPDOC ---
Subjective Date Seen The patient was seen on 04/13/20. Subjective Chief Complaint/HPI Patient is a 60-year-old male. He is quite pleasant. He reports that he is short of breath with minimal exertion, such as when he gets up to use the restroom, but otherwise seems to be doing well enough. He does continue to co ugh, but it is a dry nonproductive cough, occasionally he'll bring up a minimal amount of white sputum. Otherwise, he denies any fevers, chills, nausea, vomiting, diarrhea, the remainder of his review of systems is negative. General: Denies: Chills, Night Sweats, Fatigue, Malaise, Normal Appetite (decreased appetite) Constitutional: Denies: Chills, Fever, Night Sweats Eyes: Denies: Pain, Vision change ENT: Denies: Head Aches, Ear Pain, Dysphagia Skin: Denies: Rash, Lesions, Breakdown Pulmonary: Reports: Cough (nonproductive); Denies: Dyspnea Cardiovascular: Denies: Chest Pain, Palpitations, Orthopnea, Paroxysmal Noc. Dyspnea, Edema, Lt Headedness Gastrointestinal: Denies: Nausea, Vomiting, Abdominal Pain, Diarrhea, Constipation Hematologic: Denies: Bruising, Bleeding Excessively Musculoskeletal: Reports: Other Symptoms (he reports he has generalized soreness) Neurological: Denies: Weakness, Numbness, Change in speech, Confusion Psych: Reports: Mood Normal; Denies: Depression, Memory Issues Objective Physical Examination General Exam: Positive: Alert, Cooperative, No Acute Distress, Other ENT Exam: Positive: Atraumatic, Mucous membr. moist/pink Neck Exam: Positive: Supple Chest Exam: Positive: Clear to auscultation Heart Exam: Positive: Rate Normal, Normal S1, Normal S2 Abdomen Exam: Positive: Normal bowel sounds, Soft Extremity Exam: Positive: Normal pulses Skin Exam: Positive: Nl turgor and temperature Neuro Exam: Positive: Normal Speech Psych Exam: Positive: Mental status NL, Other (unable to psych exam secondary to his medical status) Assessment /Plan Problems (1) Pneumonia due to SARS-associated coronavirus Status: Acute (2) Multifocal pneumonia Status: Acute (3) COPD exacerbation Status: Acute (4) CAD (coronary artery disease) Status: Chronic (5) Factor V deficiency Status: Chronic (6) Hyperlipemia Status: Chronic (7) HTN (hypertension) Status: Chronic Plan/VTE VTE Prophylaxis Ordered?: Yes (Lovenox) Plan Lungs sounds are improved today. Vital signs stable. Patient does continue to suffer from exertional dyspnea. Will continue with IV Levaquin every 24 hours empirically, Solu-Medrol, duo nebs on an as-needed basis for wheezing/shortness of breath. Tylenol as needed for pain or fever. Continue with home medications aspirin, atenolol, atorvastatin, lisinopril, loratadine for his chronic medical issues. VS, I&O, 24H, Fishbone Vital Signs/I&O Vital Signs Date Time Temp Pulse Resp B/P (MAP) Pulse Ox O2 Delivery O2 Flow Rate FiO2 04/13/20 16:29 96.0 64 22 108/74 (85) 94 Nasal Cannula 2.0 I&O- Last 24 Hours up to 6 AM 04/13/20 06:00 Intake Total 2180 ml Output Total 625 ml Balance 1555 ml Laboratory Data 24H LABS Laboratory Tests 2 04/12/20 20:00: Lactic Acid Followup at 4 Hours 1.7, Troponin I < 0.02 04/13/20 06:56: Troponin I < 0.02, Nucleated Red Blood Cells % (auto) 0.0, Anion Gap 8, Glomerular Filtration Rate > 60.0, Calcium Level 8.4L, Magnesium Level 2.4, Total Bilirubin 0.5, Aspartate Amino Transf (AST/SGOT) 23, Alanine A minotransferase (ALT/SGPT) 21, Alkaline Phosphatase 71, Total Protein 6.2L, Albumin 2.6L, Albumin/Globulin Ratio 0.7 CBC/BMP Laboratory Tests 04/13/20 06:56 Microbiology Microbiology 04/12/20 Gram Stain, Received Pending 04/12/20 Sputum Culture, Received Pending 04/12/20 Respiratory Virus Panel (PCR) (JW) - Final, Complete SARS-CoV-2 (COVID 19) 04/12/20 Blood Culture - Preliminary, Resulted No growth after 24 hours . All specim... 04/12/20 Blood Culture - Preliminary, Resulted No growth after 24 hours . All specim... AJ RING DO Apr 13, 2020 17:52
[2020-04-13 20:58] VITALS: BP 104/67
[2020-04-13] MEDS: CYCLOBENZAPRINE 10MG TABLET PO PRN (21:03)
[2020-04-14] MEDS: RAMELTEON 8 MG TAB (ROZEREM) PO PRN ×2 (00:34→20:57)
[2020-04-14 00:41] VITALS: BP 102/66
[2020-04-14] MEDS: methylPREDNISolone INJ 125 MG/2 ML VIAL (J2930) IV SCH ×2 (04:55→11:47)
[2020-04-14] MEDS: NS 1,000 ML IV SCH ×2 (04:55→10:00)
[2020-04-14 04:57] VITALS: BP 101/71
[2020-04-14 06:47] LABS: HEMATOCRIT 33.1 % (42.0-52.0); HEMOGLOBIN 10.2 g/dl (13.5-17.5); MEAN CORPUSCULAR HEMOGLOBIN 28.1 pg (27.0-33.0); MEAN CORPUSCULAR HGB CONC 30.8 g/dl (32.0-36.5); MEAN CORPUSCULAR VOLUME 91.2 fl (80.0-96.0); PLATELET COUNT, AUTOMATED 339 10^3/uL (150-450); RED BLOOD COUNT 3.63 10^6/uL (4.30-6.10); WHITE BLOOD COUNT 9.5 10^3/uL (4.0-10.0)
[2020-04-14 07:09] LABS: ALBUMIN 2.3 GM/DL (3.2-5.2); ALT/SGPT 33 U/L (12-78); BILIRUBIN,TOTAL 0.3 MG/DL (0.2-1.0); BLOOD UREA NITROGEN 22 MG/DL (7-18); CALCIUM LEVEL 8.6 MG/DL (8.5-10.1); CARBON DIOXIDE LEVEL 21 MEQ/L (21-32); CHLORIDE LEVEL 111 MEQ/L (98-107); CREATININE FOR GFR 0.74 MG/DL (0.70-1.30); GLOMERULAR FILTRATION RATE > 60.0 (>56); GLUCOSE, FASTING 156 MG/DL (70-100); POTASSIUM SERUM 3.7 MEQ/L (3.5-5.1); SODIUM LEVEL 138 MEQ/L (136-145); TOTAL PROTEIN 6.4 GM/DL (6.4-8.2)
[2020-04-14] MEDS: ENOXAPARIN 40MG/0.4ML SYRINGE (J1650 PER 10MG) SC SCH (08:19)
[2020-04-14] MEDS: DOCUSATE SODIUM 100 MG CAP PO SCH ×2 (08:20→20:28)
[2020-04-14] MEDS: TOPIRAMATE (TopAMAX) 100 MG TAB PO SCH (08:20)
[2020-04-14] MEDS: ATORVASTATIN 20 MG TAB PO SCH (08:20)
[2020-04-14] MEDS: LORATADINE 10 MG TAB PO SCH (08:20)
[2020-04-14] MEDS: ASPIRIN 81 MG ENTERIC TAB PO SCH (08:20)
[2020-04-14] MEDS: atenoloL 25 MG TAB PO SCH (08:32)
[2020-04-14] MEDS: lisinopriL 5 MG TAB PO SCH (08:32)
[2020-04-14 14:02] VITALS: BP 108/65
--- NOTE | 2020-04-14 18:59 | IPNPDOC ---
Subjective Date Seen The patient was seen on 04/14/20. Subjective Chief Complaint/HPI The patient reports that he is feeling better today. He was weaned off his oxygen throughout the day today, and was not wearing any during my examination. He reports that he is no longer short of breath at rest, but he will become quite winded even if he gets up and walks to the bathroom and back. His appetite is improving today. Otherwise, the remainder of his review of systems is unremarkable. General: Reports: Normal Appetite; Denies: Chills, Night Sweats, Fatigue, Malaise ENT: Denies: Head Aches Pulmonary: Reports: Dyspnea, Cough Cardiovascular: Denies: Chest Pain, Palpitations, Orthopnea, Paroxysmal Noc. Dyspnea Gastrointestinal: Denies: Nausea, Vomiting, Abdominal Pain, Diarrhea, Constipation Psych: Reports: Mood Normal; Denies: Depression, Memory Issues Objective Physical Examination General Exam: Positive: Alert, No Acute Distress, Other ENT Exam: Positive: Atraumatic, Mucous membr. moist/pink Chest Exam: Positive: Clear to auscultation, Normal air movement; Negative: Rales, Rhonchi, Wheezing Heart Exam: Positive: Rate Normal, Normal S1, Normal S2 Abdomen Exam: Positive: Normal bowel sounds, Soft Extremity Exam: Positive: Normal pulses Skin Exam: Positive: Nl turgor and temperature Neuro Exam: Positive: Normal Speech Psych Exam: Positive: Mental status NL, Other (unable to psych exam secondary to his medical status) Assessment /Plan Problems (1) Pneumonia due to SARS-associated coronavirus Status: Acute (2) Multifocal pneumonia Status: Acute (3) COPD exacerbation Status: Acute (4) CAD (coronary artery disease) Status: Chronic (5) Factor V deficiency Status: Chronic (6) Hyperlipemia Status: Chronic (7) HTN (hypertension) Status: Chronic Plan/VTE VTE Prophylaxis Ordered?: Yes (Lovenox) Plan Sputum culture returned, although it appears to be a contaminated sample with a variety of organisms and multiple epithelial cells. His cough is essentially nonproductive, and his chest x-ray shows faint patchy infiltrates which would be more consistent with viral disease anyway. Will discontinue his empiric antibiotics at this time. His appetite is significantly improved, and he is eating and drinking well. We'll discontinue his fluids at this time. Now the patient is improving, no longer requires oxygen, will discontinue IV Solu-Medrol, give him tapering doses of prednisone, his last dose will be tomorrow evening. He has not showed any arrhythmias, therefore we will discontinue telemetry at this time. For the time being though, since he does continue to experience shortness of breath, we will leave him on continuous pulse ox monitoring. VS, I&O, 24H, Reymundobone Vital Signs/I&O Vital Signs Date Time Temp Pulse Resp B/P (MAP) Pulse Ox O2 Delivery O2 Flow Rate FiO2 04/14/20 14:02 97.0 86 19 108/65 (79) 100 Room Air 04/14/20 04:57 1.0 I&O- Last 24 Hours up to 6 AM 04/14/20 06:00 Intake Total 3540 ml Output Total 1475 ml Balance 2065 ml Laboratory Data 24H LABS Laboratory Tests 2 04/14/20 06:28: Nucleated Red Blood Cells % (auto) 0.0, Anion Gap 6L, Glomerular Filtration Rate > 60.0, Calcium Level 8.6, Total Bilirubin 0.3, Aspartate Amino Transf (AST/ SGOT) 31, Alanine Aminotransferase (ALT/SGPT) 33, Alkaline Phosphatase 70, Total Protein 6.4, Albumin 2.3L, Albumin/Globulin Ratio 0.6 CBC/BMP Laboratory Tests 04/14/20 06:28 Microbiology Microbiology 04/12/20 Gram Stain - Final, Complete 04/12/20 Sputum Culture - Final, Complete 04/12/20 Respiratory Virus Panel (PCR) (JW) - Final, Complete SARS-CoV-2 (COVID 19) 04/12/20 Blood Culture - Preliminary, Resulted No Growth after 48 hours. All Specime... 04/12/20 Blood Culture - Preliminary, Resulted No Growth after 48 hours. All Specime... AJ RING DO Apr 14, 2020 18:59
[2020-04-14] MEDS: CYCLOBENZAPRINE 10MG TABLET PO PRN (20:56)
[2020-04-14] MEDS ORDERED: predniSONE 20 MG TAB PO ONE (21:00)
[2020-04-14 21:19] VITALS: BP 100/64
[2020-04-15 06:00] VITALS: BP 114/80
[2020-04-15 08:41] LABS: ALBUMIN 2.4 GM/DL (3.2-5.2); BLOOD UREA NITROGEN 21 MG/DL (7-18); CALCIUM LEVEL 8.3 MG/DL (8.5-10.1); CARBON DIOXIDE LEVEL 20 MEQ/L (21-32); CHLORIDE LEVEL 114 MEQ/L (98-107); CREATININE FOR GFR 0.65 MG/DL (0.70-1.30); GLOMERULAR FILTRATION RATE > 60.0 (>56); GLUCOSE, FASTING 129 MG/DL (70-100); PHOSPHORUS LEVEL 2.5 MG/DL (2.5-4.9); POTASSIUM SERUM 4.1 MEQ/L (3.5-5.1); SODIUM LEVEL 144 MEQ/L (136-145)
[2020-04-15] MEDS: LORATADINE 10 MG TAB PO SCH (08:43)
[2020-04-15] MEDS: DOCUSATE SODIUM 100 MG CAP PO SCH (08:43)
[2020-04-15] MEDS: ASPIRIN 81 MG ENTERIC TAB PO SCH (08:44)
[2020-04-15] MEDS: ATORVASTATIN 20 MG TAB PO SCH (08:44)
[2020-04-15] MEDS: TOPIRAMATE (TopAMAX) 100 MG TAB PO SCH (08:44)
[2020-04-15] MEDS: lisinopriL 5 MG TAB PO SCH (08:44)
[2020-04-15 08:45] VITALS: BP 120/84
[2020-04-15] MEDS: atenoloL 25 MG TAB PO SCH (08:45)
[2020-04-15] MEDS: ENOXAPARIN 40MG/0.4ML SYRINGE (J1650 PER 10MG) SC SCH (08:46)
[2020-04-15] MEDS ORDERED: predniSONE 20 MG TAB PO ONE (09:00)
[2020-04-15 09:21] LABS: HEMATOCRIT 32.5 % (42.0-52.0); HEMOGLOBIN 10.3 g/dl (13.5-17.5); MEAN CORPUSCULAR HEMOGLOBIN 28.5 pg (27.0-33.0); MEAN CORPUSCULAR HGB CONC 31.7 g/dl (32.0-36.5); MEAN CORPUSCULAR VOLUME 89.8 fl (80.0-96.0); PLATELET COUNT, AUTOMATED 359 10^3/uL (150-450); RED BLOOD COUNT 3.62 10^6/uL (4.30-6.10); WHITE BLOOD COUNT 11.4 10^3/uL (4.0-10.0)
--- NOTE | 2020-04-15 18:45 | DS.PDOC ---
Discharge Summary General Date of Admission Apr 12, 2020 at 17:40 Date of Discharge 04/15/2020 Discharge Summary PRIMARY CARE PHYSICIAN: Avelino Wren ATTENDING AT TIME OF DISCHARGE: Dr. Aj Ring, DO DISCHARGE DIAGNOS(E)S: Pneumonia due to SARS COVID-19 HPI & HOSPITAL COURSE: Patient presented to the emergency department with worsening shortness of breath, nonproductive cough, wheezing, weakness, chills, fever. Apparently his girlfriend is a traveling nurse, she was unaware of any exposure to Covid 19, however he tested positive here, therefore she is now undergoing testing and isolation at this time. At the time of his admission he was started on empiric antibiotics Levaquin and steroids for suspected community-acquired pneumonia. These were shortly discontinue thereafter after confirmation that his diagnosis was Covid 19. His chest x-ray is also consistent with viral pneumonia being multi lobar and patchy. Originally he did require oxygen supplementation, but certainly did not require ICU, therefore he was admitted to our Covid 19 specific floor. He continued to show daily improvement, and this morning he reports that he was able to get up and walk around his room without any shortness of breath, he is feeling significantly better today, and appears stable and appropriate for discharge at this time. PHYSICAL EXAMINATION ON DISCHARGE: GENERAL: Awake, alert, oriented 3. CARDIOVASCULAR EXAMINATION: Regular rate and rhythm, with no rubs, gallops, or murmur. RESPIRATORY EXAMINATION: Clear to auscultation bilaterally with no wheezes, rales, or rhonchi. ABDOMINAL EXAMINATION: Soft, nontender, nondistended. Bowel sounds present. EXTREMITIES: No clubbing or edema noted. 2+ pulses in the radial bilaterally. DISPOSITION: Home DISCHARGE INSTRUCTIONS: Follow-up with primary care provider via telemedicine within 7-10 days. He will also need to follow up with public health per their protocol, and maintain isolation until they deem appropriate. If symptoms return, or if you experience worsening of your symptoms, please call your doctor or return to the emergency department. DISCHARGE MEDICATIONS: No change in his home medications Vital Signs/I&Os Vital Signs Date Time Temp Pulse Resp B/P (MAP) Pulse Ox O2 Delivery O2 Flow Rate FiO2 04/15/20 08:45 80 120/84 04/15/20 06:00 96.6 19 92 Room Air 04/14/20 04:57 1.0 I&O- Last 24 Hours up to 6 AM 04/15/20 05:59 Intake Total 1950 ml Output Total 1475 ml Balance 475 ml Laboratory Data Labs 24H Laboratory Tests 2 04/15/20 07:50: Anion Gap 10, Glomerular Filtration Rate > 60.0, Calcium Level 8.3L, Phosphorus Level 2.5, Albumin 2.4L 04/15/20 08:47: Nucleated Red Blood Cells % (auto) 0.0 CBC/BMP Laboratory Tests 04/15/20 07:50 04/15/20 08:47 Microbiology Microbiology 04/12/20 Gram Stain - Final, Complete 04/12/20 Sputum Culture - Final, Complete 04/12/20 Respiratory Virus Panel (PCR) (JW) - Final, Complete SARS-CoV-2 (COVID 19) 04/12/20 Blood Culture - Preliminary, Resulted No Growth after 72 hours. All specime... 04/12/20 Blood Culture - Preliminary, Resulted No Growth after 72 hours. All specime... Discharge Medications Scheduled Aspirin (Ecotrin) 81 Mg Tablet.dr, 81 MG PO DAILY, (Reported) Atenolol (Atenolol) 25 Mg Tab, 25 MG PO DAILY, (Reported) Atorvastatin Calcium (Lipitor) 80 Mg Tab, 80 MG PO DAILY, (Reported) Lisinopril (Lisinopril) 5 Mg Tab, 5 MG PO DAILY, (Reported) Loratadine (Loratadine) 10 Mg Tablet, 10 MG PO DAILY, (Reported) Topiramate (Topiramate) 100 Mg Tablet, 200 MG PO DAILY, (Reported) Scheduled PRN Cyclobenzaprine HCl (Cyclobenzaprine HCl) 10 Mg Tablet, 10 MG PO QHS PRN for PAIN SCALE 1-5, (Reported) Ondansetron (Ondansetron Odt) 4 Mg Tab.rapdis, 4 MG PO Q6-8HP PRN for NAUSEA OR VOMITING, (Reported) Allergies Coded Allergies: Penicillins (Verified Allergy, Mild, rash, 04/06/20) aripiprazole (Verified Adverse Reaction, Mild, agitation, 04/06/20) AJ RING DO Apr 15, 2020 18:45
[2020-04-15] MEDS ORDERED: predniSONE 10 MG TAB PO ONE (21:00)
== END 2020-04-15 12:20 | disposition home or self-care (01) | DRG 177 ==
LOC: M ED 14:28 → EDBD 14:28 → M ED INP 17:40 → ENRESERV 19:26 → M 4MAIN 20:13
PROVIDERS: ADMIT Internal Medicine; ATTEND Neuromusculoskeletal Medicine & OMM
DX: U07.1 COVID-19 (principal); J18.9 Pneumonia, unspecified organism; D68.0 Von Willebrand disease; J44.1 Chronic obstructive pulmonary disease with (acute) exacerbation; I10 Essential (primary) hypertension; Z79.899 Other long term (current) drug therapy; Z79.82 Long term (current) use of aspirin; Z88.0 Allergy status to penicillin; Z88.8 Allergy status to other drugs, medicaments and biological substances; E78.5 Hyperlipidemia, unspecified; E55.9 Vitamin D deficiency, unspecified; E53.8 Deficiency of other specified B group vitamins; G43.909 Migraine, unspecified, not intractable, without status migrainosus; I25.2 Old myocardial infarction; Z95.2 Presence of prosthetic heart valve; E87.6 Hypokalemia; M54.5 Low back pain

== ENCOUNTER → 2020-04-27 | Outpatient (CLI) | payer MEDICARE ==
[~2020-04-27] MED LIST changes: +TOPI100T9 PO
== END ==
LOC: M LABSMTC 12:45
PROVIDERS: ATTEND Family Medicine
DX: Z11.59 Encounter for screening for other viral diseases (principal)
CPT/HCPCS: C9803; U0003

== ENCOUNTER → 2020-07-02 | Outpatient (CLI) | payer MEDICARE | LOC: M PAIN 13:45 | PROVIDERS: ATTEND Family Medicine | DX: M54.40 Lumbago with sciatica, unspecified side (principal) ==

== ENCOUNTER → 2020-10-04 | Outpatient (CLI) | payer MEDICARE ==
--- NOTE | 2020-10-07 00:22 | ECWPNPC ---
PATIENT NAME: CHRISTOPHER SAMAYOA : 1960 GENDER: MALE VISIT DATE: 10/04/2020 DISCHARGE DATE: 10/04/20 0000 VISIT LOCKED DATE TIME: PHYSICIAN: CHALINO MORA RESOURCE: CHALINO MORA REASON FOR APPOINTMENT 1. BACK HISTORY OF PRESENT ILLNESS DEPRESSION SCREENING: PHQ-2 (2015 EDITION) LITTLE INTEREST OR PLEASURE IN DOING THINGS?NOT AT ALL FEELING DOWN, DEPRESSED, OR HOPELESS?NOT AT ALL TOTAL SCORE0 60-YEAR-OLD MALE IN FOR CHRONIC PAIN FOLLOW-UP. AT LAST CLINIC VISIT PATIENT'S GABAPENTIN WAS INCREASED AND HE ADMITS TODAY THAT THIS HAS BEEN HELPFUL HOWEVER HE STILL HAS MOMENTS OF BREAKTHROUGH PAIN. HE RATES HIS PAIN CURRENTLY AT A 2 OUT OF 10 AND DESCRIBES IT ACHING. GENERAL: -. FALL RISK SCREENING: SCREENING :ONE FALL WITHOUT INJURY IN THE PAST YEAR PAIN SCREENING: PATIENT HAS A COMPLAINT OF ACUTE OR CHRONIC PAIN :YES LOCATION OF PAIN:LOW BACK, LEG(S) INTENSITY OF PAIN (SCALE OF 1 TO 10):2 WHAT DOES YOUR PAIN FEEL LIKE:ACHING DURATION:INTERMITTENT PAIN IS INCREASED BY:ACTIVITIES PAIN IS DECREASED BY:USE OF PAIN MEDICATIONS TREATMENT/MEDICATIONS USED TO MANAGE PAIN: DALE LEVEL OF RELIEF FROM PAIN TREATMENTS IN THE PAST:75% PAIN HAS INTERFERED WITH THE FOLLOWING:BATHING/DRESSING, WALKING ABILITY, HOUSEWORK, TRANSPORTATION, TOILETING NURSING NOTE: -. PAIN CENTER INTAKE QUESTIONS: DO YOU HAVE A HISTORY OF MRSA? :NO DO YOU TAKE A BLOOD THINNERS? :NO DO YOU HAVE ANY BLEEDING DISORDERS? :NO ANY NEW NUMBNESS OR WEAKNESS IN YOUR LEGS OR ARMS? :YES LEGS AND FEET ANY PACEMAKER,DEFIBRILLATOR, OR DORSAL COLUMN STIMULATOR? :NO DO YOU HAVE ANY RASHES OR OPEN SORES? :NO ARE YOU ALLERGIC TO IV DYE? :NO ARE YOU DIABETIC? :NO ANY NEW PROBLEMS WITH YOUR MEDICATIONS? :NO HAVE YOU RECEIVED A VACCINE IN THE PAST 30 DAYS? :NO DO YOU PLAN TO RECEIVE A VACCINE IN THE NEXT 21 DAYS? :NO DO YOU NEED ANY PRESCRIPTION? :YES DALE DO YOU TAKE ANY IMMUNOSUPPRESSIVE MEDICATIONS? :NO IS THERE A CHANCE YOU COULD BE ? :NO ARE YOU BREAST FEEDING? :NO CURRENT MEDICATIONS TAKING TOPAMAX 100 100MG TABLET ORAL DAILY TAKING LISINOPRIL 5 MG TABLET 1 TABLET ORALLY ONCE A DAY TAKING ATENOLOL 25 MG TABLET 1 TABLET ORALLY ONCE A DAY TAKING ATORVASTATIN CALCIUM 80 MG TABLET 1 TABLET ORALLY ONCE A DAY TAKING YADI ASPIRIN EC LOW DOSE 81 MG TABLET DELAYED RELEASE 1 TABLET ORALLY ONCE A DAY TAKING MULTI FOR HIM - TABLET DIRECTED ORALLY DAILY TAKING GABAPENTIN 100 MG CAPSULE 1 CAPSULE TWICE A DAY X3 DAYS INCREASING TO 1 CAPSULE 3 TIMES A DAY ORALLY ONCE A DAY TAKING CYCLOBENZAPRINE HCL 10 MG TABLET 1 TABLET NEEDED ORALLY Q8H PRN NOT-TAKING APRISO 0.375 GM CAPSULE EXTENDED RELEASE 24 HOUR 4 CAPSULES IN THE MORNING ORALLY ONCE A DAY, NOTES: HASN'T STARTED YET NOT-TAKING FLEXERIL 10 MG TABLET 1 TABLET ORALLY THREE TIMES A DAY NOT-TAKING CLOPIDOGREL BISULFATE 75 MG TABLET 1 TABLET ORALLY ONCE A DAY NOT-TAKING METHOCARBAMOL 750 MG TABLET 1 TABLET ORALLY TID PRN NOT-TAKING MELOXICAM 15 MG TABLET 1 TABLET ORALLY ONCE A DAY NOT-TAKING PENTASA 250 MG CAPSULE EXTENDED RELEASE 4 CAPSULES ORALLY FOUR TIMES A DAY NOT-TAKING IBUPROFEN 800 MG TABLET 1 TABLET ORALLY THREE TIMES A DAY NOT-TAKING METHYLPREDNISOLONE 4 MG TABLET THERAPY PACK DIRECTED ORALLY DIRECTED NOT-TAKING VALIUM 5 MG TABLET 1 TABLET NEEDED ORALLY TWICE A DAY FOR 3 DAYS FOR SEVERE SPASM MDD=2 NOT-TAKING LIPITOR 20 MG TABLET 1 TABLET ORALLY ONCE A DAY NOT-TAKING CHLORTHALIDONE 12.5 12.5MG TABLET ORAL NOT-TAKING TAMSULOSIN HCL 0.4 MG CAPSULE 1 CAPSULE 30 MINUTES AFTER THE SAME MEAL EACH DAY ORALLY QHS NOT-TAKING MELOXICAM 15 MG TABLET 1 TABLET ORALLY ONCE A DAY MEDICATION LIST REVIEWED AND RECONCILED WITH THE PATIENT PAST MEDICAL HISTORY HYPERLIPIDEMIA VITAMIN D INSUFFICIENCY FOLIC DEFICIENCY MIGRAINES VON WILLEBRANDS DIVERTICULITIS ULCERATIVE COLITIS ALLERGIES PENICILLIN (FOR ALLERGIES USE ONLY): RASH ABILIFY: RASH SURGICAL HISTORY LOWER BACK 1997 LEFT LEG X5 1989' REMOVAL OF PATELLA 1989' RIGHT SHOULDER 1988 RIGHT LEG 2009 NECK SURGERY, SKIN CANCER 2005 VARICOSE VEINS 1984 2 CARDIAC STENTS 2015 MELANOMA 2014 COLONOSCOPY 08/2018 COLONOSCOPY 09/2018 FAMILY HISTORY FATHER: MOTHER: , DIAGNOSED WITH OTHER MALIGNANT NEOPLASM OF UNSPECIFIED SITE 3 BROTHER(S) , 3 SISTER(S) - HEALTHY. 1 SON(S) , 1 DAUGHTER(S) . BROTHER - COLON CANCERDAUGHTER - EHLER'S DANLOS SYNDROMEMOTHER - BREAST CANCER. SOCIAL HISTORY GENERAL: TOBACCO USE ARE YOU A:NONSMOKER QUIT JUL 2016 LATEX QUESTIONNAIRE LATEX ALLERGY : HAVE YOU EVER DEVELOPED ANY TYPE OF REACTION AFTER HANDLING LATEX PRODUCTS SUCH RUBBER GLOVES, CONDOMS, DIAPHRAGMS, BALLOONS, SOCKS, OR UNDERWEAR?NO LATEX ALLERGY : HAVE YOU EVER DEVELOPED ANY TYPE OF REACTION DURING OR AFTER DENTAL APPOINTMENT, VAGINAL/RECTAL EXAMINATION, SURGICAL PROCEDURE, OR ANY OTHER EXPOSURE?NO LATEX RISK : HAVE YOU EVER HAD ANY DIFFICULTY BREATHING OR HIVES AFTER EATING OR HANDLING ANY FRUITS, OR VEGETABLES; SUCH KIWI, BANANAS, STONE FRUITS, OR CHESTNUTSNO LATEX RISK : DO YOU HAVE A PREVIOUS PERSONAL HISTORY OF MORE THAN NINE SURGERIES, SPINA BIFIDA, OR REPEATED CATHERIZATIONS? NO LATEX RISK : ARE YOU FREQUENTLY EXPOSED TO LATEX PRODUCTS IN YOUR OCCUPATION?NO DATE ASKED : 10/04/2020 ALCOHOL SCREENING POINTS: 0, INTERPRETATION: NEGATIVE. RECREATIONAL DRUG USE DENIES. CAFFEINE CAFFEINE USE?NO SEXUAL HX HAD SEX IN THE LAST 12 MONTHS (VAGINAL, ORAL, OR ANAL)?: YES, WITH: WOMEN ONLY, USE PROTECTION?: NO, HAVE YOU EVER HAD AN STD?: NO. YAZIDISM [id number] NONE LANGUAGE UZBEK. LEARNING BARRIERS / SPECIAL NEEDS BARRIERS TO LEARNING?NO HEARING IMPAIRED?NO VISION IMPAIRED?NO COGNITIVELY IMPAIRED?NO READINESS TO LEARN?YES LEARNING PREFERENCES?NO LEARNING CAPABILITIES PRESENT?YES SPECIAL DEVICES?NO DOMESTIC VIOLENCE NONE. OCCUPATION: DISABLED. DIET: REGULAR. EXERCISE: DAILY. MARITAL STATUS: SINGLE. PAIN CLINIC PFS, CLERGY, PUBLIC HEALTH REFERRALS PFS REFERRAL NEEDED?NO CLERGY REFERRAL NEEDED?NO PUBLIC HEALTH REFERRAL NEEDED?NO HAS THE PATIENT BEEN EDUCATED REGARDING HIS/HER PLAN OF CARE?YES HAS THE PATIENT BEEN EDUCATED REGARDING PAIN, THE RISK FOR PAIN, THE IMPORTANCE OF EFFECTIVE PAIN MANAGEMENT, AND THE PAIN ASSESSMENT PROCESS?YES ADVANCE DIRECTIVE ADVANCE DIRECTIVE DISCUSSED WITH PATIENT:YES DECLINED HCP INFORMATION REVIEWED WITH PATIENT 10/01/18 1457 JSREVIEWED WITH PATIENT 12/11/18 1426 JSREVIEWED WITH PATIENT 06/19/19 1437 NLJREVIEWED WITH PATIENT 08/27/19 1459 JS. HOSPITALIZATION/MAJOR DIAGNOSTIC PROCEDURE COLITIS 2011 REVIEW OF SYSTEMS CONSTITUTIONAL: ANY RECENT FEVER NO . CHILLS NO . WEIGHT CHANGE OF UNKNOWN REASONS NO . GASTROENTEROLOGY: NEW UNEXPLAINABLE CHANGES IN BOWEL CONTROL NO . CONSTIPATION NO . GENITOURINARY: ANY NEW CHANGE IN BLADDER CONTROL? NO . NEUROLOGY: NEW ONSET DIZZINESS OR NEUROLOGICAL CHANGES NOT MENTIONED NO . NEW NUMBNESS OR PAIN PATTERNS NOT MENTIONED AND PERTINENT TO TODAY'S VISIT NO . CARDIOLOGY: NEW CHEST PRESSURE NO . NEW CHEST PAIN NO . RESPIRATORY: UNEXPLAINABLE COUGH NO . NEW SHORTNESS OF BREATH NO . VITAL SIGNS WT 239.6 LBS, HT 73 IN, BMI 31.61 INDEX, BP 136/105 MM HG, HR 89 /MIN, RR 18 /MIN, TEMP 98.8 F, OXYGEN SAT % 100, SAFE IN ENV? (Y/N) Y, NA INITIALS AW 1337, REVIEWED BY: EMLET NURSE KNOW ABOUT BP. PT STATES HE DID NOT TAKE B/P MED THIS AM. EXAMINATION GENERAL EXAMINATION: GENERALNO ACUTE DISTRESS, WELL NOURISHED AND HYDRATED. PSYCHAPPROPRIATE MOOD AND AFFECT . LUNGS:CLEAR TO AUSCULTATION BILATERALLY, NO WHEEZES, RHONCHI, RALES. HEART:NO MURMURS, REGULAR RATE AND RHYTHM. ASSESSMENTS LUMBAGO WITH SCIATICA, UNSPECIFIED SIDE - M54.40 (PRIMARY) TREATMENT LUMBAGO WITH SCIATICA, UNSPECIFIED SIDE NOTES: 60-YEAR-OLD MALE IN FOR CHRONIC PAIN FOLLOW-UP. GIVEN PRESENTING SYMPTOMS RECOMMEND INCREASING GABAPENTIN TO 600 MG 3 TIMES A DAY WITH FOLLOW-UP IN 3 MONTHS. PATIENT HAS EXPRESSED UNDERSTANDING OF AND WAS IN AGREEMENT WITH TREATMENT PLAN. GIVEN TIME TO ASK QUESTIONS AND EXPRESS CONCERNS. OTHERS REFILL GABAPENTIN TABLET, 600 MG, 1 CAPSULE, ORALLY, THREE TIMES DAILY, 90 DAY(S), 270 PROCEDURE CODES FA211 ESTABILISHED PATIENT [facility] FACILITY CHARGE DISPOSITION & COMMUNICATION FOLLOW UP 3 MONTHS (REASON: BACK PAIN) ELECTRONICALLY SIGNED BY AIMEE BECKER ON 10/06/2020 AT 09:05 AM EST DISCLAIMER : THIS IS A VISIT SUMMARY EXTRACTED FROM THE [employer] CHART. IT IS NOT A COPY OF THE [employer] PROGRESS NOTE. LUIGID
== END ==
LOC: M PAIN 13:30
PROVIDERS: ATTEND Family Medicine
DX: M54.40 Lumbago with sciatica, unspecified side (principal); G89.29 Other chronic pain; G43.909 Migraine, unspecified, not intractable, without status migrainosus; Z95.5 Presence of coronary angioplasty implant and graft; Z87.891 Personal history of nicotine dependence; Z88.0 Allergy status to penicillin; Z88.8 Allergy status to other drugs, medicaments and biological substances; Z79.82 Long term (current) use of aspirin; Z79.899 Other long term (current) drug therapy

== ENCOUNTER → 2021-01-11 | Outpatient (CLI) | payer MEDICARE ==
[~2021-01-11] MED LIST changes: -LISI-542 PO; +LISI-898 PO
--- NOTE | 2021-01-13 03:27 | ECWPNPC ---
PATIENT NAME: CHRISTOPHER SAMAYOA : 1960 GENDER: MALE VISIT DATE: 01/11/2021 DISCHARGE DATE: 01/11/21 1050 VISIT LOCKED DATE TIME: PHYSICIAN: CHALINO MORA RESOURCE: CHALINO MORA REASON FOR APPOINTMENT 1. BACK PAIN HISTORY OF PRESENT ILLNESS GENERAL: - 60-YEAR-OLD MALE IN FOR CHRONIC PAIN FOLLOW-UP. HE RATES PAIN CURRENTLY AT A 5 OUT OF 10 AND DESCRIBES IT ACHING, BURNING, CONTINUOUS, AND THROBBING. PATIENT DOES ADMIT TO EXACERBATIONS OF HIS SCIATIC PAIN AT TIMES. HE CURRENTLY UTILIZES BENGAY AND HEAT WHEN HE EXPERIENCES THESE EXACERBATIONS. FALL RISK SCREENING: SCREENING ONE FALL REPORTED IN THE LAST YEAR WITH INJURY. PATIENT STATES HE DID NOT SEEK IMMEDIATE MEDICAL TREATMENT.. PAIN SCREENING: PATIENT HAS A COMPLAINT OF ACUTE OR CHRONIC PAIN :YES LOCATION OF PAIN:LOW BACK INTENSITY OF PAIN (SCALE OF 1 TO 10):5 WHAT DOES YOUR PAIN FEEL LIKE:ACHING, BURNING, CONTINOUS, THROBBING DURATION:CONTINOUS PAIN IS INCREASED BY:ACTIVITIES, PROLONGED STANDING PAIN IS DECREASED BY:USE OF PAIN MEDICATIONS NURSING NOTE: -. PAIN CENTER INTAKE QUESTIONS: DO YOU HAVE A HISTORY OF MRSA? :NO DO YOU TAKE A BLOOD THINNERS? :NO DO YOU HAVE ANY BLEEDING DISORDERS? :NO COLITIS ANY NEW NUMBNESS OR WEAKNESS IN YOUR LEGS OR ARMS? :NO ANY PACEMAKER,DEFIBRILLATOR, OR DORSAL COLUMN STIMULATOR? :NO DO YOU HAVE ANY RASHES OR OPEN SORES? :NO ARE YOU ALLERGIC TO IV DYE? :NO ARE YOU DIABETIC? :NO ANY NEW PROBLEMS WITH YOUR MEDICATIONS? :NO HAVE YOU RECEIVED A VACCINE IN THE PAST 30 DAYS? :YES IF SO WHAT VACCINE AND WHEN? FIRST COVID VACCINATION WAS 12/27/2020 DO YOU PLAN TO RECEIVE A VACCINE IN THE NEXT 21 DAYS? :YES IF SO WHAT VACCINE AND WHEN? SECOND COVID VACCINATION SCHEDULED 01/24/2021 DO YOU NEED ANY PRESCRIPTION? :YES GABAPENTIN DO YOU TAKE ANY IMMUNOSUPPRESSIVE MEDICATIONS? :NO DO YOU HAVE ANY KIDNEY OR LIVER DISEASE? :NO IS THERE A CHANCE YOU COULD BE ? :NO ARE YOU BREAST FEEDING? :NO CURRENT MEDICATIONS TAKING TOPAMAX 100 100MG TABLET ORAL DAILY TAKING LISINOPRIL 5 MG TABLET 1 TABLET ORALLY ONCE A DAY TAKING ATENOLOL 25 MG TABLET 1 TABLET ORALLY ONCE A DAY TAKING ATORVASTATIN CALCIUM 80 MG TABLET 1 TABLET ORALLY ONCE A DAY TAKING MULTI FOR HIM - TABLET DIRECTED ORALLY DAILY TAKING GABAPENTIN 600 MG TABLET 1 CAPSULE ORALLY THREE TIMES DAILY TAKING CYCLOBENZAPRINE HCL 10 MG TABLET 1 TABLET NEEDED ORALLY Q8H PRN NOT-TAKING YADI ASPIRIN EC LOW DOSE 81 MG TABLET DELAYED RELEASE 1 TABLET ORALLY ONCE A DAY UNKNOWN APRISO 0.375 GM CAPSULE EXTENDED RELEASE 24 HOUR 4 CAPSULES IN THE MORNING ORALLY ONCE A DAY, NOTES: HASN'T STARTED YET UNKNOWN FLEXERIL 10 MG TABLET 1 TABLET ORALLY THREE TIMES A DAY UNKNOWN CLOPIDOGREL BISULFATE 75 MG TABLET 1 TABLET ORALLY ONCE A DAY UNKNOWN METHOCARBAMOL 750 MG TABLET 1 TABLET ORALLY TID PRN UNKNOWN MELOXICAM 15 MG TABLET 1 TABLET ORALLY ONCE A DAY UNKNOWN PENTASA 250 MG CAPSULE EXTENDED RELEASE 4 CAPSULES ORALLY FOUR TIMES A DAY UNKNOWN IBUPROFEN 800 MG TABLET 1 TABLET ORALLY THREE TIMES A DAY UNKNOWN METHYLPREDNISOLONE 4 MG TABLET THERAPY PACK DIRECTED ORALLY DIRECTED UNKNOWN VALIUM 5 MG TABLET 1 TABLET NEEDED ORALLY TWICE A DAY FOR 3 DAYS FOR SEVERE SPASM MDD=2 UNKNOWN LIPITOR 20 MG TABLET 1 TABLET ORALLY ONCE A DAY UNKNOWN CHLORTHALIDONE 12.5 12.5MG TABLET ORAL UNKNOWN TAMSULOSIN HCL 0.4 MG CAPSULE 1 CAPSULE 30 MINUTES AFTER THE SAME MEAL EACH DAY ORALLY QHS UNKNOWN MELOXICAM 15 MG TABLET 1 TABLET ORALLY ONCE A DAY MEDICATION LIST REVIEWED AND RECONCILED WITH THE PATIENT PAST MEDICAL HISTORY HYPERLIPIDEMIA VITAMIN D INSUFFICIENCY FOLIC DEFICIENCY MIGRAINES VON WILLEBRANDS DIVERTICULITIS ULCERATIVE COLITIS ALLERGIES PENICILLIN (FOR ALLERGIES USE ONLY): RASH ABILIFY: RASH SOCIAL HISTORY GENERAL: TOBACCO USE ARE YOU A:NONSMOKER QUIT JUL 2016 LATEX QUESTIONNAIRE LATEX ALLERGY : HAVE YOU EVER DEVELOPED ANY TYPE OF REACTION AFTER HANDLING LATEX PRODUCTS SUCH RUBBER GLOVES, CONDOMS, DIAPHRAGMS, BALLOONS, SOCKS, OR UNDERWEAR?NO LATEX ALLERGY : HAVE YOU EVER DEVELOPED ANY TYPE OF REACTION DURING OR AFTER DENTAL APPOINTMENT, VAGINAL/RECTAL EXAMINATION, SURGICAL PROCEDURE, OR ANY OTHER EXPOSURE?NO LATEX RISK : HAVE YOU EVER HAD ANY DIFFICULTY BREATHING OR HIVES AFTER EATING OR HANDLING ANY FRUITS, OR VEGETABLES; SUCH KIWI, BANANAS, STONE FRUITS, OR CHESTNUTSNO LATEX RISK : DO YOU HAVE A PREVIOUS PERSONAL HISTORY OF MORE THAN NINE SURGERIES, SPINA BIFIDA, OR REPEATED CATHERIZATIONS? NO LATEX RISK : ARE YOU FREQUENTLY EXPOSED TO LATEX PRODUCTS IN YOUR OCCUPATION?NO DATE ASKED : 01/11/2021 ALCOHOL USE: NO. ALCOHOL SCREENING POINTS: 0, INTERPRETATION: NEGATIVE. RECREATIONAL DRUG USE DENIES. CAFFEINE CAFFEINE USE?NO SEXUAL HX HAD SEX IN THE LAST 12 MONTHS (VAGINAL, ORAL, OR ANAL)?: YES, WITH: WOMEN ONLY, USE PROTECTION?: NO, HAVE YOU EVER HAD AN STD?: NO. JEWISH [id number] NONE LANGUAGE NIGERIAN. LEARNING BARRIERS / SPECIAL NEEDS BARRIERS TO LEARNING?NO HEARING IMPAIRED?NO VISION IMPAIRED?YES :CORRECTIVE LENSES COGNITIVELY IMPAIRED?NO READINESS TO LEARN?YES LEARNING PREFERENCES?NO LEARNING CAPABILITIES PRESENT?YES EMOTIONAL BARRIERS?NO SPECIAL DEVICES?NO DOMESTIC VIOLENCE NONE. OCCUPATION: DISABLED. DIET: REGULAR. EXERCISE: DAILY. MARITAL STATUS: SINGLE. - PFS REFERRAL NEEDED?NO CLERGY REFERRAL NEEDED?NO PUBLIC HEALTH REFERRAL NEEDED?NO HAS THE PATIENT BEEN EDUCATED REGARDING HIS/HER PLAN OF CARE?YES HAS THE PATIENT BEEN EDUCATED REGARDING PAIN, THE RISK FOR PAIN, THE IMPORTANCE OF EFFECTIVE PAIN MANAGEMENT, AND THE PAIN ASSESSMENT PROCESS?YES ADVANCE DIRECTIVE ADVANCE DIRECTIVE DISCUSSED WITH PATIENT:YES DECLINED HCP INFORMATION REVIEWED WITH PATIENT 10/01/18 1457 JSREVIEWED WITH PATIENT 12/11/18 1426 JSREVIEWED WITH PATIENT 06/19/19 1437 NLJREVIEWED WITH PATIENT 08/27/19 1459 JS. REVIEW OF SYSTEMS CONSTITUTIONAL: ANY RECENT FEVER NO . CHILLS NO . WEIGHT CHANGE OF UNKNOWN REASONS NO . GASTROENTEROLOGY: NEW UNEXPLAINABLE CHANGES IN BOWEL CONTROL NO . CONSTIPATION NO . GENITOURINARY: ANY NEW CHANGE IN BLADDER CONTROL? NO . NEUROLOGY: NEW ONSET DIZZINESS OR NEUROLOGICAL CHANGES NOT MENTIONED NO . NEW NUMBNESS OR PAIN PATTERNS NOT MENTIONED AND PERTINENT TO TODAY'S VISIT NO . CARDIOLOGY: NEW CHEST PRESSURE NO . PATIENT DENIES NO . RESPIRATORY: UNEXPLAINABLE COUGH NO . NEW SHORTNESS OF BREATH NO . VITAL SIGNS WT 233.8 LBS, HT 73 IN, BMI 30.84 INDEX, BP 137/89 MM HG, HR 75 /MIN, RR 18 /MIN, TEMP 97.0 F, OXYGEN SAT % 98%, SAFE IN ENV? (Y/N) YES, NA INITIALS AW 1018, REVIEWED BY: LILIA MATOS MA. EXAMINATION GENERAL EXAMINATION: GENERALNO ACUTE DISTRESS, WELL NOURISHED AND HYDRATED. PSYCHAPPROPRIATE MOOD AND AFFECT . LUNGS:CLEAR TO AUSCULTATION BILATERALLY, NO WHEEZES, RHONCHI, RALES. HEART:NO MURMURS, REGULAR RATE AND RHYTHM. ASSESSMENTS LUMBAGO WITH SCIATICA, UNSPECIFIED SIDE - M54.40 (PRIMARY), RISK: (NULL) TREATMENT LUMBAGO WITH SCIATICA, UNSPECIFIED SIDE CONTINUE GABAPENTIN TABLET, 600 MG, 1 CAPSULE, ORALLY, THREE TIMES DAILY, 90 DAY(S), 270, REFILLS 1 NOTES: 60-YEAR-OLD MALE IN FOR CHRONIC PAIN FOLLOW-UP. GIVEN PRESENTING SYMPTOMS RECOMMEND CONTINUATION OF CURRENT MEDICATION REGIMEN WITH FOLLOW-UP IN 3 MONTHS. DISCUSSED BIOFREEZE WITH PATIENT AND HE WAS AMENABLE TO TRYING THIS. PATIENT HAS EXPRESSED UNDERSTANDING OF AND WAS IN AGREEMENT WITH TREATMENT PLAN. GIVEN TIME TO ASK QUESTIONS AND EXPRESS CONCERNS. PROCEDURE CODES FA211 ESTABILISHED PATIENT [facility] CHARGE DISPOSITION & COMMUNICATION FOLLOW UP 3 MONTHS (REASON: LOW BACK PAIN ) ELECTRONICALLY SIGNED BY AIMEE BECKER ON 01/12/2021 AT 01:20 PM EDT DISCLAIMER : THIS IS A VISIT SUMMARY EXTRACTED FROM THE [employer] CHART. IT IS NOT A COPY OF THE [employer] PROGRESS NOTE. BREANNA
== END ==
LOC: M PAIN 10:30
PROVIDERS: ATTEND Family Medicine
DX: M54.40 Lumbago with sciatica, unspecified side (principal); E78.5 Hyperlipidemia, unspecified; E55.9 Vitamin D deficiency, unspecified; G43.909 Migraine, unspecified, not intractable, without status migrainosus; K51.90 Ulcerative colitis, unspecified, without complications; D68.0 Von Willebrand disease; E53.8 Deficiency of other specified B group vitamins; Z87.891 Personal history of nicotine dependence; Z88.0 Allergy status to penicillin; Z88.8 Allergy status to other drugs, medicaments and biological substances

== ENCOUNTER 2021-03-08 12:26 | Emergency (ER) | payer MEDICARE, OTHER ==
[~2021-03-08] VITALS: Ht 185.4 cm; Wt 101.8 kg
[2021-03-08] MEDS ORDERED: GABA600T4 (12:33)
[2021-03-08] MEDS ORDERED: VALA1TAB5 PO (13:38)
[2021-03-08 13:57] VITALS: BP 117/83
== END 2021-03-08 14:09 | disposition home or self-care (01) ==
LOC: M ED 12:26
DX: K12.1 Other forms of stomatitis (principal); Z87.891 Personal history of nicotine dependence; F10.11 Alcohol abuse, in remission

== ENCOUNTER → 2021-04-21 | Outpatient (CLI) | payer OTHER ==
[~2021-04-21] MED LIST changes: -DOXY100C37 PO; +DOXY1CAP62 PO; +GABA600T4; +VALA1TAB5 PO
--- NOTE | 2021-04-23 00:01 | ECWPNPC ---
PATIENT NAME: CHRISTOPHER SAMAYOA : 1960 GENDER: MALE VISIT DATE: 04/21/2021 DISCHARGE DATE: 04/21/21 1441 VISIT LOCKED DATE TIME: PHYSICIAN: CHALINO MORA RESOURCE: CHALINO MORA REASON FOR APPOINTMENT 1. BACK PAIN HISTORY OF PRESENT ILLNESS GENERAL: HPI 61-YEAR-OLD MALE IN FOR CHRONIC PAIN FOLLOW-UP. HE RATES HIS PAIN CURRENTLY AT A 2 OUT OF 10 AND DESCRIBES IT ACHING AND CONTINUOUS. PATIENT ADMITS TO APPROXIMATELY 16 POUND WEIGHT LOSS AND STATES THAT THIS HAS SIGNIFICANTLY IMPROVED HIS BACK PAIN. HE FURTHER FEELS HIS MEDICATIONS ARE HELPFUL AND DENIES MED SIDE EFFECTS AT THIS TIME.. -. FALL RISK SCREENING: SCREENING ONE FALL DURING THE WINTER, NO MAJOR INJURES, DID NOT GO THE ER. PAIN SCREENING: PATIENT HAS A COMPLAINT OF ACUTE OR CHRONIC PAIN :YES LOCATION OF PAIN:LOW BACK INTENSITY OF PAIN (SCALE OF 1 TO 10):2 WHAT DOES YOUR PAIN FEEL LIKE:ACHING, CONTINOUS DURATION:ONLY WITH SPECIFIC ACTIVITIES, INTERMITTENT PAIN IS INCREASED BY:ACTIVITIES PAIN IS DECREASED BY:USE OF PAIN MEDICATIONS NURSING NOTE: -. PAIN CENTER INTAKE QUESTIONS: DO YOU HAVE A HISTORY OF MRSA? :NO DO YOU TAKE A BLOOD THINNERS? :NO DO YOU HAVE ANY BLEEDING DISORDERS? :YES COLITIS ANY NEW NUMBNESS OR WEAKNESS IN YOUR LEGS OR ARMS? :NO ANY PACEMAKER,DEFIBRILLATOR, OR DORSAL COLUMN STIMULATOR? :NO DO YOU HAVE ANY RASHES OR OPEN SORES? :NO ARE YOU ALLERGIC TO IV DYE? :NO ARE YOU DIABETIC? :NO ANY NEW PROBLEMS WITH YOUR MEDICATIONS? :NO HAVE YOU RECEIVED A VACCINE IN THE PAST 30 DAYS? :YES IF SO WHAT VACCINE AND WHEN? FIRST COVID VACCINATION WAS 12/27/2020 DO YOU PLAN TO RECEIVE A VACCINE IN THE NEXT 21 DAYS? :YES IF SO WHAT VACCINE AND WHEN? SECOND COVID VACCINATION SCHEDULED 01/24/2021 DO YOU NEED ANY PRESCRIPTION? :YES GABAPENTIN DO YOU TAKE ANY IMMUNOSUPPRESSIVE MEDICATIONS? :NO DO YOU HAVE ANY KIDNEY OR LIVER DISEASE? :NO IS THERE A CHANCE YOU COULD BE ? :NO ARE YOU BREAST FEEDING? :NO CURRENT MEDICATIONS TAKING TOPAMAX 100 100MG TABLET ORAL DAILY TAKING LISINOPRIL 5 MG TABLET 1 TABLET ORALLY ONCE A DAY TAKING ATENOLOL 25 MG TABLET 1 TABLET ORALLY ONCE A DAY TAKING ATORVASTATIN CALCIUM 80 MG TABLET 1 TABLET ORALLY ONCE A DAY TAKING MULTI FOR HIM - TABLET DIRECTED ORALLY DAILY TAKING CYCLOBENZAPRINE HCL 10 MG TABLET 1 TABLET NEEDED ORALLY Q8H PRN TAKING GABAPENTIN 600 MG TABLET 1 CAPSULE ORALLY THREE TIMES DAILY TAKING FLEXERIL 10 MG TABLET 1 TABLET ORALLY TWICE A DAY TIMES A DAY NOT-TAKING YADI ASPIRIN EC LOW DOSE 81 MG TABLET DELAYED RELEASE 1 TABLET ORALLY ONCE A DAY NOT-TAKING APRISO 0.375 GM CAPSULE EXTENDED RELEASE 24 HOUR 4 CAPSULES IN THE MORNING ORALLY ONCE A DAY, NOTES: HASN'T STARTED YET NOT-TAKING CLOPIDOGREL BISULFATE 75 MG TABLET 1 TABLET ORALLY ONCE A DAY NOT-TAKING METHOCARBAMOL 750 MG TABLET 1 TABLET ORALLY TID PRN NOT-TAKING MELOXICAM 15 MG TABLET 1 TABLET ORALLY ONCE A DAY NOT-TAKING PENTASA 250 MG CAPSULE EXTENDED RELEASE 4 CAPSULES ORALLY FOUR TIMES A DAY NOT-TAKING IBUPROFEN 800 MG TABLET 1 TABLET ORALLY THREE TIMES A DAY NOT-TAKING METHYLPREDNISOLONE 4 MG TABLET THERAPY PACK DIRECTED ORALLY DIRECTED NOT-TAKING VALIUM 5 MG TABLET 1 TABLET NEEDED ORALLY TWICE A DAY FOR 3 DAYS FOR SEVERE SPASM MDD=2 NOT-TAKING LIPITOR 20 MG TABLET 1 TABLET ORALLY ONCE A DAY NOT-TAKING CHLORTHALIDONE 12.5 12.5MG TABLET ORAL NOT-TAKING TAMSULOSIN HCL 0.4 MG CAPSULE 1 CAPSULE 30 MINUTES AFTER THE SAME MEAL EACH DAY ORALLY QHS NOT-TAKING MELOXICAM 15 MG TABLET 1 TABLET ORALLY ONCE A DAY MEDICATION LIST REVIEWED AND RECONCILED WITH THE PATIENT PAST MEDICAL HISTORY HYPERLIPIDEMIA VITAMIN D INSUFFICIENCY FOLIC DEFICIENCY MIGRAINES [place] DIVERTICULITIS ULCERATIVE COLITIS FIRST COVID VACCINATION WAS 12/27/2020, SECOND COVID VACCINATION SCHEDULED 01/24/2021 ALLERGIES PENICILLIN (FOR ALLERGIES USE ONLY): RASH - SIDE EFFECTS ABILIFY: RASH - SIDE EFFECTS SURGICAL HISTORY LOWER BACK 1997 LEFT LEG X5 1989' REMOVAL OF PATELLA 1989' RIGHT SHOULDER 1988 RIGHT LEG 2009 NECK SURGERY, SKIN CANCER 2005 VARICOSE VEINS 1984 2 CARDIAC STENTS 2015 MELANOMA 2014 COLONOSCOPY 08/2018 COLONOSCOPY 09/2018 FAMILY HISTORY FATHER: MOTHER: , DIAGNOSED WITH OTHER MALIGNANT NEOPLASM OF UNSPECIFIED SITE 3 BROTHER(S) , 3 SISTER(S) - HEALTHY. 1 SON(S) , 1 DAUGHTER(S) . BROTHER - COLON CANCERDAUGHTER - EHLER'S DANLOS SYNDROMEMOTHER - BREAST CANCER. SOCIAL HISTORY GENERAL: TOBACCO USE ARE YOU A:NONSMOKER QUIT JUL 2016 LATEX QUESTIONNAIRE LATEX ALLERGY : HAVE YOU EVER DEVELOPED ANY TYPE OF REACTION AFTER HANDLING LATEX PRODUCTS SUCH RUBBER GLOVES, CONDOMS, DIAPHRAGMS, BALLOONS, SOCKS, OR UNDERWEAR?NO LATEX ALLERGY : HAVE YOU EVER DEVELOPED ANY TYPE OF REACTION DURING OR AFTER DENTAL APPOINTMENT, VAGINAL/RECTAL EXAMINATION, SURGICAL PROCEDURE, OR ANY OTHER EXPOSURE?NO LATEX RISK : HAVE YOU EVER HAD ANY DIFFICULTY BREATHING OR HIVES AFTER EATING OR HANDLING ANY FRUITS, OR VEGETABLES; SUCH KIWI, BANANAS, STONE FRUITS, OR CHESTNUTSNO LATEX RISK : DO YOU HAVE A PREVIOUS PERSONAL HISTORY OF MORE THAN NINE SURGERIES, SPINA BIFIDA, OR REPEATED CATHERIZATIONS? NO LATEX RISK : ARE YOU FREQUENTLY EXPOSED TO LATEX PRODUCTS IN YOUR OCCUPATION?NO DATE ASKED : 04/21/2021 ALCOHOL USE: NO. ALCOHOL SCREENING POINTS: 0, INTERPRETATION: NEGATIVE. RECREATIONAL DRUG USE DENIES. CAFFEINE CAFFEINE USE?NO SEXUAL HX HAD SEX IN THE LAST 12 MONTHS (VAGINAL, ORAL, OR ANAL)?: YES, WITH: WOMEN ONLY, USE PROTECTION?: NO, HAVE YOU EVER HAD AN STD?: NO. [employer] [id number] NONE LANGUAGE GERMAN. LEARNING BARRIERS / SPECIAL NEEDS BARRIERS TO LEARNING?NO HEARING IMPAIRED?YES VISION IMPAIRED?YES :CORRECTIVE LENSES COGNITIVELY IMPAIRED?NO READINESS TO LEARN?YES LEARNING PREFERENCES?NO LEARNING CAPABILITIES PRESENT?YES EMOTIONAL BARRIERS?NO SPECIAL DEVICES?YES :CANE, WALKER NEEDED DOMESTIC VIOLENCE NONE. OCCUPATION: DISABLED. DIET: REGULAR. EXERCISE: DAILY. MARITAL STATUS: SINGLE. - PFS REFERRAL NEEDED?NO CLERGY REFERRAL NEEDED?NO PUBLIC HEALTH REFERRAL NEEDED?NO HAS THE PATIENT BEEN EDUCATED REGARDING HIS/HER PLAN OF CARE?YES HAS THE PATIENT BEEN EDUCATED REGARDING PAIN, THE RISK FOR PAIN, THE IMPORTANCE OF EFFECTIVE PAIN MANAGEMENT, AND THE PAIN ASSESSMENT PROCESS?YES ADVANCE DIRECTIVE ADVANCE DIRECTIVE DISCUSSED WITH PATIENT:YES DECLINED HCP INFORMATION REVIEWED WITH PATIENT 10/01/18 1457 JSREVIEWED WITH PATIENT 12/11/18 1426 JSREVIEWED WITH PATIENT 06/19/19 1437 NLJREVIEWED WITH PATIENT 08/27/19 1459 JS. HOSPITALIZATION/MAJOR DIAGNOSTIC PROCEDURE COLITIS 2012 LOW IRON - BECAUSE THE BLEEDING 03/2021 REVIEW OF SYSTEMS CONSTITUTIONAL: ANY RECENT FEVER NO . CHILLS NO . WEIGHT CHANGE OF UNKNOWN REASONS NO . GASTROENTEROLOGY: NEW UNEXPLAINABLE CHANGES IN BOWEL CONTROL NO . CONSTIPATION NO . GENITOURINARY: ANY NEW CHANGE IN BLADDER CONTROL? NO . NEUROLOGY: NEW ONSET DIZZINESS OR NEUROLOGICAL CHANGES NOT MENTIONED NO . NEW NUMBNESS OR PAIN PATTERNS NOT MENTIONED AND PERTINENT TO TODAY'S VISIT NO . CARDIOLOGY: NEW CHEST PRESSURE NO . PATIENT DENIES NO . RESPIRATORY: UNEXPLAINABLE COUGH NO . NEW SHORTNESS OF BREATH NO . VITAL SIGNS WT 223.6 LBS, HT 73 IN, BMI 29.50 INDEX, BP 119/82 MM HG, HR 77 /MIN, RR 18 /MIN, TEMP 96.7 F, OXYGEN SAT % 100%, SAFE IN ENV? (Y/N) YES, NA INITIALS AW 1406T.HUMERA WATSON. EXAMINATION GENERAL EXAMINATION: GENERALNO ACUTE DISTRESS, WELL NOURISHED AND HYDRATED. PSYCHAPPROPRIATE MOOD AND AFFECT . LUNGS:CLEAR TO AUSCULTATION BILATERALLY, NO WHEEZES, RHONCHI, RALES. HEART:NO MURMURS, REGULAR RATE AND RHYTHM. ASSESSMENTS LUMBAGO WITH SCIATICA, UNSPECIFIED SIDE - M54.40 (PRIMARY), RISK: (NULL) TREATMENT LUMBAGO WITH SCIATICA, UNSPECIFIED SIDE NOTES: 61-YEAR-OLD MALE IN FOR CHRONIC PAIN FOLLOW-UP. GIVEN PRESENTING SYMPTOMS RECOMMEND CONTINUATION OF CURRENT MEDICATION REGIMEN WITH FOLLOW-UP IN 3 MONTHS. PATIENT HAS EXPRESSED UNDERSTANDING OF AND WAS IN AGREEMENT WITH TREATMENT PLAN. GIVEN TIME BEST QUESTIONS AND EXPRESS CONCERNS. PROCEDURE CODES FA211 ESTABILISHED PATIENT [facility] CHARGE DISPOSITION & COMMUNICATION FOLLOW UP 3 MONTHS (REASON: LOW BACK PAIN ) ELECTRONICALLY SIGNED BY AIMEE BECKER ON 04/22/2021 AT 12:46 PM EDT DISCLAIMER : THIS IS A VISIT SUMMARY EXTRACTED FROM THE [employer] CHART. IT IS NOT A COPY OF THE [employer] PROGRESS NOTE. MTDD
== END ==
LOC: M PAIN 14:15
PROVIDERS: ATTEND Family Medicine
DX: M54.40 Lumbago with sciatica, unspecified side (principal); G89.29 Other chronic pain; G43.909 Migraine, unspecified, not intractable, without status migrainosus; Z87.891 Personal history of nicotine dependence; Z88.0 Allergy status to penicillin; Z88.8 Allergy status to other drugs, medicaments and biological substances; Z79.899 Other long term (current) drug therapy

== ENCOUNTER → 2021-11-30 | Outpatient (CLI) | payer OTHER ==
[~2021-11-30] MED LIST changes: +DOXY-443 PO; -DOXY1CAP62 PO; -LISI-898 PO; +LISI5TAB11 PO
== END ==
LOC: M PAIN 14:30
PROVIDERS: ATTEND Nurse Practitioner Family
DX: M54.40 Lumbago with sciatica, unspecified side (principal); E78.5 Hyperlipidemia, unspecified; E55.9 Vitamin D deficiency, unspecified; G43.909 Migraine, unspecified, not intractable, without status migrainosus; D68.0 Von Willebrand disease; Z87.891 Personal history of nicotine dependence; Z79.82 Long term (current) use of aspirin; Z79.899 Other long term (current) drug therapy; Z88.0 Allergy status to penicillin; Z88.8 Allergy status to other drugs, medicaments and biological substances

== ENCOUNTER → 2021-12-28 | Outpatient (CLI) | payer OTHER | LOC: M RAD 11:19 | PROVIDERS: ATTEND Nurse Practitioner Family | DX: M54.40 Lumbago with sciatica, unspecified side (principal) ==

== ENCOUNTER → 2022-01-03 | Outpatient (CLI) | payer OTHER ==
[2022-01-03 11:06] LABS: INR 0.89; PROTHROMBIN TIME 12.4 SECONDS (12.7-14.5)
[2022-01-03 11:07] LABS: PARTIAL THROMBOPLASTIN TIME 32.6 SECONDS (25.9-37.0)
[2022-01-10 18:08] LABS: FACTOR IX ANTIGEN 102.2 % (.)
== END ==
LOC: M PLALAB 08:23
PROVIDERS: ATTEND Internal Medicine Hematology
DX: I25.10 Atherosclerotic heart disease of native coronary artery without angina pectoris (principal); D68.0 Von Willebrand disease

== ENCOUNTER → 2022-03-22 | Outpatient (CLI) | payer OTHER | LOC: M PAIN 11:00 | PROVIDERS: ATTEND Anesthesiology | DX: Z53.21 Procedure and treatment not carried out due to patient leaving prior to being seen by health care provider (principal) ==

== ENCOUNTER → 2022-03-29 | Outpatient (CLI) | payer OTHER | LOC: M PAIN 14:15 | PROVIDERS: ATTEND Anesthesiology | DX: M47.816 Spondylosis without myelopathy or radiculopathy, lumbar region (principal); M48.061 Spinal stenosis, lumbar region without neurogenic claudication; E78.5 Hyperlipidemia, unspecified; E55.9 Vitamin D deficiency, unspecified; G43.909 Migraine, unspecified, not intractable, without status migrainosus; K51.90 Ulcerative colitis, unspecified, without complications; D68.0 Von Willebrand disease; E53.8 Deficiency of other specified B group vitamins; Z88.0 Allergy status to penicillin; Z88.8 Allergy status to other drugs, medicaments and biological substances; Z79.82 Long term (current) use of aspirin; Z79.899 Other long term (current) drug therapy ==

== ENCOUNTER → 2022-08-02 | Outpatient (CLI) | payer OTHER | LOC: M PAIN 13:45 | PROVIDERS: ATTEND Anesthesiology | DX: M51.16 Intervertebral disc disorders with radiculopathy, lumbar region (principal); G89.29 Other chronic pain; G43.909 Migraine, unspecified, not intractable, without status migrainosus; Z87.891 Personal history of nicotine dependence; Z88.0 Allergy status to penicillin; Z88.8 Allergy status to other drugs, medicaments and biological substances; Z79.82 Long term (current) use of aspirin; Z79.899 Other long term (current) drug therapy ==

== ENCOUNTER → 2022-10-25 | Outpatient (CLI) | payer OTHER | LOC: M PAIN 11:00 → M TMPAIN 11:00 | PROVIDERS: ATTEND Anesthesiology | DX: M51.16 Intervertebral disc disorders with radiculopathy, lumbar region (principal); E78.5 Hyperlipidemia, unspecified; E55.9 Vitamin D deficiency, unspecified; G43.909 Migraine, unspecified, not intractable, without status migrainosus; K51.90 Ulcerative colitis, unspecified, without complications; D68.00 Von Willebrand disease, unspecified; E53.8 Deficiency of other specified B group vitamins; Z87.891 Personal history of nicotine dependence; Z79.82 Long term (current) use of aspirin; Z79.899 Other long term (current) drug therapy; Z88.0 Allergy status to penicillin; Z88.8 Allergy status to other drugs, medicaments and biological substances ==

== ENCOUNTER → 2022-10-31 | Outpatient (REF) | payer OTHER | LOC: M LAB REF 18:51 | PROVIDERS: ATTEND Internal Medicine Gastroenterology | DX: K51.011 Ulcerative (chronic) pancolitis with rectal bleeding (principal) ==

== ENCOUNTER → 2023-05-04 | Outpatient (CLI) | payer OTHER | LOC: M PAIN 14:15 | PROVIDERS: ATTEND Nurse Practitioner Family | DX: M96.1 Postlaminectomy syndrome, not elsewhere classified (principal); E78.5 Hyperlipidemia, unspecified; E55.9 Vitamin D deficiency, unspecified; G43.909 Migraine, unspecified, not intractable, without status migrainosus; D68.00 Von Willebrand disease, unspecified; Z87.891 Personal history of nicotine dependence; Z79.82 Long term (current) use of aspirin; Z79.899 Other long term (current) drug therapy; Z88.0 Allergy status to penicillin; Z88.8 Allergy status to other drugs, medicaments and biological substances ==

== ENCOUNTER → 2023-07-03 | Outpatient (CLI) | payer MEDICARE ==
[~2023-07-03] MED LIST changes: +LORA-1041 PO; -LORA-674 PO
[2023-07-03 11:23] LABS: BASO # 0.1 10^3/uL (0.0-0.2); BASO % 0.9 % (0.0-1.0); EOS # 0.6 10^3/uL (0.0-0.5); HEMATOCRIT 27.6 % (42.0-52.0); HEMOGLOBIN 7.7 g/dl (13.5-17.5); LYMPH # 2.6 10^3/uL (1.5-5.0); LYMPH % 32.6 % (24.0-44.0); MEAN CORPUSCULAR HEMOGLOBIN 20.2 pg (27.0-33.0); MEAN CORPUSCULAR HGB CONC 27.9 g/dl (32.0-36.5); MEAN CORPUSCULAR VOLUME 72.3 fl (80.0-96.0); MONO # 0.7 10^3/uL (0.0-0.8); MONO % 8.7 % (2.0-8.0); NEUTROPHILS % 50.4 % (36.0-66.0); PLATELET COUNT, AUTOMATED 434 10^3/uL (150-450); RED BLOOD COUNT 3.82 10^6/uL (4.30-6.10); WHITE BLOOD COUNT 7.9 10^3/uL (4.0-10.0)
[2023-07-03 11:50] LABS: C REACTIVE PROTEIN QUANTITATIV < 0.40 MG/DL (<1.0); ERYTHROCYTE SEDIMENTATION RATE 37 mm/hr (0-20)
[2023-07-03 11:52] LABS: ALBUMIN 3.7 G/DL (3.2-5.2); ALKALINE PHOSPHATASE 114 U/L (46-116); ALT/SGPT 26 U/L (7.0-40); AST/SGOT 22 U/L (<34); BILIRUBIN,DIRECT 0.2 MG/DL (<0.4); BILIRUBIN,TOTAL 0.6 MG/DL (0.3-1.2); BLOOD UREA NITROGEN 17 MG/DL (9-23); CALCIUM LEVEL 8.9 MG/DL (8.3-10.6); CARBON DIOXIDE LEVEL 23 MMOL/L (20-31); CHLORIDE LEVEL 110 MMOL/L (98-107); CREATININE FOR GFR 0.76 MG/DL (0.70-1.30); GLOMERULAR FILTRATION RATE > 60.0 (>49); GLUCOSE, FASTING 94 MG/DL (74-106); POTASSIUM SERUM 4.4 MMOL/L (3.5-5.1); SODIUM LEVEL 142 MMOL/L (136-145); TOTAL PROTEIN 6.9 G/DL (5.7-8.2)
== END ==
LOC: M LAB 10:40
PROVIDERS: ATTEND Nurse Practitioner
DX: R06.02 Shortness of breath (principal); Z79.620 Long term (current) use of immunosuppressive biologic

== ENCOUNTER → 2023-07-03 | Outpatient (CLI) | payer MEDICARE | LOC: M LAB 10:38 | PROVIDERS: ATTEND Internal Medicine Cardiovascular Disease | DX: R06.02 Shortness of breath (principal) ==

== ENCOUNTER → 2023-10-19 | Outpatient (CLI) | payer MEDICARE | LOC: M PAIN 14:00 | PROVIDERS: ATTEND Nurse Practitioner Family | DX: M96.1 Postlaminectomy syndrome, not elsewhere classified (principal); G89.29 Other chronic pain; Z87.891 Personal history of nicotine dependence; Z79.82 Long term (current) use of aspirin; Z79.899 Other long term (current) drug therapy; Z88.0 Allergy status to penicillin; Z88.8 Allergy status to other drugs, medicaments and biological substances ==

== ENCOUNTER → 2024-02-27 | Outpatient (CLI) | payer MEDICARE ==
[~2024-02-27] MED LIST changes: +DOXY-323 PO; -DOXY-443 PO
[2024-02-27 09:10] LABS: APPEARANCE, URINE CLEAR (CLEAR); BACTERIA, URINE AUTO NEGATIVE (NEGATIVE); BILIRUBIN, URINE AUTO NEGATIVE (NEGATIVE); BLOOD, URINE BLOOD NEGATIVE (NEGATIVE); COLOR, URINE YELLOW (YELLOW); GLUCOSE, URINE (UA) AUTO NEGATIVE (NEGATIVE); KETONE, URINE AUTO NEGATIVE (NEGATIVE); LEUKOCYTE ESTERASE, URINE AUTO NEGATIVE (NEGATIVE); NITRITE, URINE AUTO NEGATIVE (NEGATIVE); PROTEIN, URINE AUTO NEGATIVE (NEGATIVE); RBC, URINE AUTO 1 /HPF (0-3); SPECIFIC GRAVITY URINE AUTO 1.019 (1.002-1.035); SQUAMOUS EPITHELIAL CELL UR AU 0 /HPF (0-6); UROBILINOGEN, URINE AUTO 0.2 mg/dL (0.0-2.0); WBC, URINE AUTO 1 /HPF (0-3)
[2024-02-27 09:19] LABS: BASO # 0.1 10^3/uL (0.0-0.2); BASO % 0.5 % (0.0-1.0); EOS # 0.1 10^3/uL (0.0-0.5); EOS % 0.9 % (0.0-3.0); HEMATOCRIT 39.8 % (42.0-52.0); HEMOGLOBIN 13.2 g/dl (13.5-17.5); LYMPH # 4.3 10^3/uL (1.5-5.0); LYMPH % 40.8 % (24.0-44.0); MEAN CORPUSCULAR HEMOGLOBIN 31.5 pg (27.0-33.0); MEAN CORPUSCULAR HGB CONC 33.2 g/dl (32.0-36.5); MONO # 0.7 10^3/uL (0.0-0.8); NEUTROPHILS # 5.2 10^3/uL (1.5-8.5); NEUTROPHILS % 49.8 % (36.0-66.0); PLATELET COUNT, AUTOMATED 295 10^3/uL (150-450); RED BLOOD COUNT 4.19 10^6/uL (4.30-6.10); WHITE BLOOD COUNT 10.5 10^3/uL (4.0-10.0)
[2024-02-27 09:32] LABS: ALBUMIN 3.3 G/DL (3.2-5.2); ALKALINE PHOSPHATASE 73 U/L (46-116); ALT/SGPT 21 U/L (7.0-40); AST/SGOT 11 U/L (<34); BILIRUBIN,TOTAL 0.4 MG/DL (0.3-1.2); BLOOD UREA NITROGEN 40 MG/DL (9-23); CALCIUM LEVEL 8.8 MG/DL (8.3-10.6); CARBON DIOXIDE LEVEL 25 MMOL/L (20-31); CHLORIDE LEVEL 110 MMOL/L (98-107); CHOLESTEROL LEVEL 145 MG/DL (<200); CREATININE FOR GFR 0.76 MG/DL (0.70-1.30); GLOMERULAR FILTRATION RATE > 60.0 (>49); GLUCOSE, FASTING 79 MG/DL (74-106); HDL CHOLESTEROL 42.6 MG/DL (>40); IRON (FE) 26 UG/DL (65-175); LDL CHOLESTEROL 64.4 MG/DL (<100); NON-HDL-C 102.4 MG/DL; SODIUM LEVEL 143 MMOL/L (136-145); TOTAL IRON BINDING CAPACITY 326 UG/DL (250-425); TOTAL PROTEIN 6.2 G/DL (5.7-8.2); TRIGLYCERIDES LEVEL 190 MG/DL (<150)
[2024-02-27 09:34] LABS: FERRITIN 10.3 NG/ML (10.5-307.3)
== END ==
LOC: M LAB 07:24
PROVIDERS: ATTEND Family Medicine
DX: D50.9 Iron deficiency anemia, unspecified (principal); I10 Essential (primary) hypertension; E78.5 Hyperlipidemia, unspecified; N52.1 Erectile dysfunction due to diseases classified elsewhere

== ENCOUNTER → 2024-04-09 | Outpatient (CLI) | payer MEDICARE ==
[~2024-04-09] MED LIST changes: +ONDA-282 PO; -ONDA4TAB6 PO
== END ==
LOC: M PAIN 17:00
PROVIDERS: ATTEND Anesthesiology
DX: M48.062 Spinal stenosis, lumbar region with neurogenic claudication (principal); M96.1 Postlaminectomy syndrome, not elsewhere classified; M51.16 Intervertebral disc disorders with radiculopathy, lumbar region; G89.29 Other chronic pain; E78.5 Hyperlipidemia, unspecified; E55.9 Vitamin D deficiency, unspecified; E53.8 Deficiency of other specified B group vitamins; G43.909 Migraine, unspecified, not intractable, without status migrainosus; Z87.891 Personal history of nicotine dependence; Z79.82 Long term (current) use of aspirin; Z79.899 Other long term (current) drug therapy; Z88.0 Allergy status to penicillin; Z88.8 Allergy status to other drugs, medicaments and biological substances

== ENCOUNTER → 2024-06-30 | Outpatient (CLI) | payer MEDICARE ==
[~2024-06-30] MED LIST changes: +GABA-1490; -GABA600T4
== END ==
LOC: M PAIN 14:00
PROVIDERS: ATTEND Nurse Practitioner Family
DX: M96.1 Postlaminectomy syndrome, not elsewhere classified (principal); E78.5 Hyperlipidemia, unspecified; E55.9 Vitamin D deficiency, unspecified; G43.909 Migraine, unspecified, not intractable, without status migrainosus; K51.90 Ulcerative colitis, unspecified, without complications; E53.8 Deficiency of other specified B group vitamins; Z87.891 Personal history of nicotine dependence; Z79.899 Other long term (current) drug therapy; Z88.0 Allergy status to penicillin; Z88.8 Allergy status to other drugs, medicaments and biological substances

== ENCOUNTER → 2024-08-26 | Outpatient (CLI) | payer MEDICARE ==
[~2024-08-26] MED LIST changes: +ATOR-398 PO; -DOXY-323 PO; +DOXY-441 PO; -LIPI80TA PO
== END ==
LOC: M PLAIMG 13:17
PROVIDERS: ATTEND Registered Nurse
DX: I71.20 Thoracic aortic aneurysm, without rupture, unspecified (principal)

== ENCOUNTER → 2024-09-29 | Outpatient (CLI) | payer MEDICARE | LOC: M PAIN 14:00 | PROVIDERS: ATTEND Nurse Practitioner Family | DX: M96.1 Postlaminectomy syndrome, not elsewhere classified (principal); G89.29 Other chronic pain; E78.5 Hyperlipidemia, unspecified; E55.9 Vitamin D deficiency, unspecified; E53.8 Deficiency of other specified B group vitamins; G43.909 Migraine, unspecified, not intractable, without status migrainosus; D68.00 Von Willebrand disease, unspecified; Z79.82 Long term (current) use of aspirin; Z79.1 Long term (current) use of non-steroidal anti-inflammatories (NSAID); Z79.899 Other long term (current) drug therapy; Z87.891 Personal history of nicotine dependence; Z88.0 Allergy status to penicillin; Z88.8 Allergy status to other drugs, medicaments and biological substances ==

== ENCOUNTER → 2025-05-06 | Outpatient (CLI) | payer MEDICARE ==
[~2025-05-06] MED LIST changes: +TOPI-257 PO; -TOPI100T9 PO
[2025-05-06 09:17] LABS: BASO # 0.1 10^3/uL (0.0-0.2); BASO % 1.2 % (0.0-1.0); EOS # 0.2 10^3/uL (0.0-0.5); EOS % 4.1 % (0.0-3.0); LYMPH # 2.4 10^3/uL (1.5-5.0); LYMPH % 43.3 % (24.0-44.0); MONO # 0.6 10^3/uL (0.0-0.8); MONO % 9.8 % (2.0-8.0); NEUTROPHILS # 2.3 10^3/uL (1.5-8.5); NEUTROPHILS % 41.1 % (36.0-66.0); PLATELET COUNT, AUTOMATED 284 10^3/uL (150-450)
[2025-05-06 09:28] LABS: ALT/SGPT 23 U/L (7.0-40); AST/SGOT 25 U/L (<34); CALCIUM LEVEL 8.9 MG/DL (8.3-10.6); CARBON DIOXIDE LEVEL 27 MMOL/L (20-31); CHLORIDE LEVEL 108 MMOL/L (98-107); CHOLESTEROL LEVEL 152 MG/DL (<200); CHOLESTEROL RISK RATIO 3.61 (<5); CREATININE FOR GFR 0.86 MG/DL (0.70-1.30); GLOMERULAR FILTRATION RATE > 90.0 (>49); IRON (FE) 41 UG/DL (65-175); LDL CHOLESTEROL 84.1 MG/DL (<100); NON-HDL-C 109.9 MG/DL; PERCENT SATURATION 13.1 % (19.7-50.0); POTASSIUM SERUM 4.3 MMOL/L (3.5-5.1); SODIUM LEVEL 146 MMOL/L (136-145); TRIGLYCERIDES LEVEL 129 MG/DL (<150)
[2025-05-06 09:30] LABS: LUTEINIZING HORMONE 5.2 mIU/ML (1.5-9.3)
[2025-05-06 09:31] LABS: TOTAL 25(OH) VITAMIN D 35.8 NG/ML (20.0-100.0)
== END ==
LOC: M LAB 08:27
PROVIDERS: ATTEND Family Medicine
DX: N52.9 Male erectile dysfunction, unspecified (principal); D50.9 Iron deficiency anemia, unspecified

== ENCOUNTER → 2025-08-24 | Outpatient (CLI) | payer MEDICARE | LOC: M PLAIMG 07:35 | PROVIDERS: ATTEND Registered Nurse | DX: I71.20 Thoracic aortic aneurysm, without rupture, unspecified (principal) ==